=== PATIENT | female | born 1975 | race Caucasian/White ===

== ENCOUNTER 2016-10-08 18:12 | Emergency (ER) | payer OTHER ==
[~2016-10-08] VITALS: Ht 170.2 cm; Wt 86.0 kg
[~2016-10-08 18:12] MED LIST: ALPR.5 PO; ASPI81TA11 PO; COMMODE 3-IN-11 MIS; COUM5TAB PO; CYCL1TAB29 PO; ENOX100P SQ; FERR325T20 PO; FLUO-1 PO; LEVO100T5 PO; LIPI80TA PO; MAGN400T3 PO; NEUR300C PO; OXYC-392 PO; QUAD CANE/SMALL1 MI1; SENN1TAB PO; TACR1 PO; TACR5 PO; WHEEMIS3
[2016-10-08 18:33] VITALS: BP 120/60; PULSE 72; RESP 16; TEMP 97.7; O2SAT 93
--- NOTE | 2016-10-08 18:38 | PD ---
HPI Chief Complaint: abnormal results Time Seen by Provider: 18:38 Travel History International Travel<30 days: No Contact w/Intl Traveler<30days: No History of Present Illness HPI 41 YO F with PMH of lupus induced vasculitis, stroke x 3 presents to the ED via EMS for evaluation of subtherapeutic INR and LLE extremity bruising and pain. Per the patient's POA the patient had a stroke, was rehabbed at [facility] September 23 and is currently in [facility] [place], transitioning to Coumadin. The patients INR has been subtherapeutic for 2 weeks. Patient is currently prescribed 7mg Coumadin daily. The patient is scheduled to be discharged from the rehab on Monday and the POA is concerned that her INR will continue to be subtherapeutic. Being followed by Dr. Mckeon. PCP and neurologist in [facility]. Patient has follow up with both Oct 11. Past Medical History Anemia: Yes Arthritis: No Asthma: No Autoimmune Disease: Yes (Lupus) Anxiety: Yes Depression: No Cancer: No Cardiovascular Problems: No High Cholesterol: Yes Chemotherapy: No Chest Pain: No Congestive Heart Failure: No COPD: No Cerebrovascular Accident: Yes (CVA 06/2016 - 07/2016 - 08/2016) Diabetes: No Diminished Hearing: No Endocrine: Yes GERD: No Genitourinary: No Hiatal Hernia: No Immune Disorder: No Kidney Stones: Yes Musculoskeletal: Yes (right side flacid) Neurologic: Yes (Expressive Aphasia / prev CVA) Psychiatric: No Reproductive: No Respiratory: No Migraines: No Radiation Therapy: No Renal Failure: Yes (acute) Seizures: No Sickle Cell Disease: No Sleep Apnea: No Thyroid Disease: Yes Ulcer: No Tubal Ligation: Yes Past Surgical History Abdominal Surgery: No Appendectomy: Yes Cardiac Surgery: Yes (cardiac catherization) Ear Surgery: No Endocrine Surgery: No Eye Surgery: No Genitourinary Surgery: No Gynecologic Surgery: No Oral Surgery: Yes ([place] teeth removed) Thoracic Surgery: No Other Surgery: Yes (THYROID REMOVED) Social History Alcohol Use: No Tobacco Use: No Substance Use: No Allergies-Medications (Allergen,Severity, Reaction): Coded Allergies: Sulfa (Verified Adverse Reaction, Mild, NAUSEA, 10/08/16) Reported Meds & Prescriptions Reported Meds & Active Scripts Active Coumadin (Warfarin) 5 Mg Tab 5 Mg PO DAILY@16 Senna Plus 8.6-50 mg (Sennosides-Docusate Sodium) 1 Tab Tab 1 Tab PO BID Flexeril (Cyclobenzaprine HCl) 10 Mg Tab 5 Mg PO Q8H PRN Oxycodone (Oxycodone HCl) 5 Mg Tab 10 Mg PO Q4H PRN Ferosul (Ferrous Sulfate) 325 Mg Tablet 325 Mg PO BID@12,17 Neurontin (Gabapentin) 300 Mg Cap 900 Mg PO Q8HR 30 Days Prograf (Tacrolimus) 5 Mg Cap 5 Mg PO BID Prograf (Tacrolimus) 1 Mg Cap 1 Mg PO BID Levothyroxine (Levothyroxine Sodium) 100 Mcg Tab 100 Mcg PO DAILY Lovenox Inj (Enoxaparin Sodium) 100 Mg/Ml Syr 100 Mg SQ BID [place] with coumadin Lipitor (Atorvastatin Calcium) 80 Mg Tab 80 Mg PO HS Aspirin EC (Aspirin) 81 Mg Tabdr 81 Mg PO DAILY Prozac (Fluoxetine HCl) 10 Mg Cap 10 Mg PO DAILY Xanax (Alprazolam) 0.5 Mg Tab 0.5 Mg PO TID PRN Wheelchair (Device) 1 Mis Mis 1 Ea .ROUTE DIRECTED Commode 3-in-1 (Device) 1 Mis Mis 1 Ea .ROUTE DIRECTED Quad Cane/Small Base (Misc. Devices) 1 Mis Mis 1 Ea .ROUTE DIRECTED Reported Magnesium Oxide 400 Mg Tab 400 Mg PO DAILY @ 1800 Warfarin 2 Mg Tab 2 Mg PO DAILY@1600 Review of Systems Except as stated in HPI: all other systems reviewed are Neg Physical Exam Narrative GENERAL: Well-nourished, well-developed white female in NAD. SKIN: Focused skin assessment warm/dry. Mild, scattered bruising of the right leg. HEAD: Normocephalic. EYES: No scleral icterus. No injection or drainage. NECK: Supple, trachea midline. No JVD or lymphadenopathy. CARDIOVASCULAR: Regular rate and rhythm without murmurs, gallops, or rubs. RESPIRATORY: Breath sounds equal bilaterally. No accessory muscle use. GASTROINTESTINAL: Abdomen soft, non-tender, nondistended. MUSCULOSKELETAL: No cyanosis, or edema. + Hohmann sign RIGHT. There is a bruise just superior to the popliteal area with ropy induration RIGHT side. NEUROLOGICAL: Awake and alert. Cranial nerves II through XII intact. Motor and sensory grossly within normal limits. Deficits of strength on the RIGHT side. Right arm in a sling. Normal speech. BACK: Nontender without obvious deformity. No CVA tenderness. Data Data Last Documented VS Vital Signs Date Time Temp Pulse Resp B/P Pulse Ox O2 Delivery O2 Flow Rate FiO2 10/08/16 18:40 72 16 99 Room Air 10/08/16 18:33 97.7 120/60 Orders Coag Profile (10/08/16 19:05) Us Leg Venous Doppler (10/08/16 19:05) Labs Laboratory Tests Test 10/08/16 19:44 Prothrombin Time 19.1 SEC Prothromb Time International 1.7 RATIO Ratio Activated Partial 29.0 SEC Thromboplast Time MDM Medical Decision Making Medical Screen Exam Complete: Yes Emergency Medical Condition: Yes Differential Diagnosis subtherapeutic INR versus DVT versus Narrative Course 41 YO F with PMH of lupus induced vasculitis, stroke x 3 presents to the ED for evaluation of subtherapeutic INR and LLE extremity bruising and pain. Per the patient's POA the patient had a stroke, was rehabbed at [place] d/c'd September 23 and is currently in [facility], transitioning to oral Coumadin. The patients INR has been subtherapeutic for 2 weeks. Patient is currently prescribed 7mg Coumadin daily. The patient is scheduled to be discharged from the rehab on Monday and the POA is concerned that her INR will continue to be subtherapeutic. Being followed by Dr. Mckeon. Patient has follow up with PCP and Neurologist Oct 11. Vitals reviewed. Physical exam reveals a white female in NAD. Right arm in a sling. + Hohmann sign RIGHT. There is a bruise just superior to the popliteal area with ropy induration RIGHT side. RIGHT sided weakness, chronic per patient. Per review of the record the patient has a history of RA, lupus, liver transplant in 2013. First stroke was in June 2016 with residual aphasia and right-sided weakness. Second stroke in July 2016, patient was placed on Eliquis. Stroke in August 2016, patient was placed on Lovenox and ASA. 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 A lumbar puncture at [place] was suggestive of vasculitis. US negative for DVT. INR 1.7. I discussed the results of the workup with the patient and her family. She is stable and discharged to the SNF. Diagnosis Primary Impression: Subtherapeutic anticoagulation Referrals: Primary Care Physician Patient Instructions: General Instructions, Safe Use of Anticoagulants (ED) Additional Instructions: Rest, hydrate. Continue medications as prescribed. Follow up with the PCP. Return to the ED for any urgent or emergent medical condition. Disposition: DISCHARGE TO SNF Condition: Stable Vicky Canela Oct 08, 2016 18:38 Patient Instructions: General Instructions, Safe Use of Anticoagulants (ED) Additional Instructions: Rest, hydrate. Continue medications as prescribed. Follow up with the PCP. Return to the ED for any urgent or emergent medical condition. Disposition: DISCHARGE HOME Condition: Stable Vicky Canela Oct 08, 2016 18:38
[2016-10-08] MEDS ORDERED: WARF4TAB51 PO (19:35)
--- NOTE | 2016-10-08 19:42 | RADRPT ---
EXAM DATE/TIME: 10/08/2016 19:12 [facility] COMPARISON: No previous studies available for comparison. INDICATIONS : Right leg swelling. MEDICAL HISTORY : Hypertension. Renal failure, acute. Hypercholesterolemia. Thrombocytopenia. Blood dyscrasias. Lupu s. Anxiety. Expressive aphasia. CVA. Hemiplegia right side. SURGICAL HISTORY : Thyroidectomy. Liver transplant. Cardiac catherization. ENCOUNTER: Initial ACUITY: 1 day PAIN SCORE: 2/10 LOCATION: Right leg. TECHNIQUE: Venous ultrasound of the leg was performed from the inguinal ligament to the proximal calf. Real-jayden e, color Doppler and spectral tracing, compression and augmentation techniques were used. FINDINGS: There is normal compressibility of the deep venous system from the inguinal region to the proximal ca lf. No echogenic clot is seen in the lumen of the common femoral, femoral, popliteal, and posterior tibial veins. There is a normal response of the venous system to proximal and distal augmentation an d respiration. CONCLUSION: The study is negative for deep venous thrombosis right lower extremity. Janak Cabezas MD on October 08, 2016 at 19:40 Board Certified Radiologist. This report was verified electronically.
[2016-10-08] MEDS ORDERED: MAGN400T2 PO (19:46)
[2016-10-08 20:15] LABS: INTERNATIONAL NORMALIZED RATIO 1.7 RATIO; PROTHROMBIN TIME - PATIENT 19.1 SEC (9.8-11.6)
== END 2016-10-08 21:37 ==
LOC: NEPE 18:12
DX: R79.1 Abnormal coagulation profile (principal); M32.9 Systemic lupus erythematosus, unspecified; E78.00 Pure hypercholesterolemia, unspecified; Z86.73 Personal history of transient ischemic attack (TIA), and cerebral infarction without residual deficits; Z79.01 Long term (current) use of anticoagulants
CPT/HCPCS: 85610; 85730; 93971

== ENCOUNTER 2016-10-09 22:06 | Inpatient (IN) | payer OTHER ==
[~2016-10-09] VITALS: Ht 172.7 cm; Wt 107.2 kg
[~2016-10-09 22:06] MED LIST changes: +MAGN400T2 PO; -MAGN400T3 PO; +WARF4TAB51 PO
[2016-10-09 22:13] VITALS: BP 132/83; PULSE 57; RESP 16; TEMP 98.3; O2SAT 99
[2016-10-09] MEDS ORDERED: SODIUM CHLOR 0.9% 1000 ML INJ 1,000 ML IV ONE (22:21)
--- NOTE | 2016-10-09 22:27 | PD ---
HPI Chief Complaint: Abdominal Pain Time Seen by Provider: 22:22 Travel History International Travel<30 days: No Contact w/Intl Traveler<30days: No Traveled to known affect area: No History of Present Illness HPI 41 YO F with PMH of liver transplant, CVA x 3 , right sided residual weakness, lupus induced vasculitis presents to the ED via EMS from [facility] for evaluation of altered mental status, nausea and vomiting. Patient was last seen normal at 8 PM. On presentation patient is unable to provide any meaningful history. She is able to state her first name and answer questions and follows commands intermittently. PFSH Past Medical History Hx Anticoagulant Therapy: Yes (WARFARIN) Anemia: Yes Arthritis: No Asthma: No Autoimmune Disease: Yes (Lupus) Anxiety: Yes Depression: No Cancer: No Cardiovascular Problems: No High Cholesterol: Yes Chemotherapy: No Chest Pain: No Congestive Heart Failure: No COPD: No Cerebrovascular Accident: Yes (CVA 06/2016 - 07/2016 - 08/2016) Diabetes: No Diminished Hearing: No Endocrine: Yes GERD: No Genitourinary: No Hiatal Hernia: No Hypertension: Yes Immune Disorder: No Kidney Stones: Yes Musculoskeletal: Yes (right side flacid) Neurologic: Yes (Expressive Aphasia / prev CVA) Psychiatric: No Reproductive: No Respiratory: No Migraines: No Radiation Therapy: No Renal Failure: Yes (acute) Seizures: No Sickle Cell Disease: No Sleep Apnea: No Thyroid Disease: Yes Ulcer: No ?: Not Tubal Ligation: Yes Past Surgical History Abdominal Surgery: No Appendectomy: Yes Cardiac Surgery: Yes (cardiac catherization) Ear Surgery: No Endocrine Surgery: No Eye Surgery: No Genitourinary Surgery: No Gynecologic Surgery: No Oral Surgery: Yes ([place] teeth removed) Thoracic Surgery: No Other Surgery: Yes (Thyroidectomy and Liver Transplant) Social History Alcohol Use: No (PT DENIES) Tobacco Use: No (PT DENIES ) Substance Use: No (PT DENIES) Allergies-Medications (Allergen,Severity, Reaction): Coded Allergies: Sulfa (Verified Adverse Reaction, Mild, NAUSEA, 10/08/16) Reported Meds & Prescriptions Reported Meds & Active Scripts Active Coumadin (Warfarin) 5 Mg Tab 5 Mg PO DAILY@16 Senna Plus 8.6-50 mg (Sennosides-Docusate Sodium) 1 Tab Tab 1 Tab PO BID Flexeril (Cyclobenzaprine HCl) 10 Mg Tab 5 Mg PO Q8H PRN Oxycodone (Oxycodone HCl) 5 Mg Tab 10 Mg PO Q4H PRN Ferosul (Ferrous Sulfate) 325 Mg Tablet 325 Mg PO BID@,17 Neurontin (Gabapentin) 300 Mg Cap 900 Mg PO Q8HR 30 Days Prograf (Tacrolimus) 5 Mg Cap 5 Mg PO BID Prograf (Tacrolimus) 1 Mg Cap 1 Mg PO BID Levothyroxine (Levothyroxine Sodium) 100 Mcg Tab 100 Mcg PO DAILY Lovenox Inj (Enoxaparin Sodium) 100 Mg/Ml Syr 100 Mg SQ BID [place] with coumadin Lipitor (Atorvastatin Calcium) 80 Mg Tab 80 Mg PO HS Aspirin EC (Aspirin) 81 Mg Tabdr 81 Mg PO DAILY Prozac (Fluoxetine HCl) 10 Mg Cap 10 Mg PO DAILY Xanax (Alprazolam) 0.5 Mg Tab 0.5 Mg PO TID PRN Wheelchair (Device) 1 Mis Mis 1 Ea .ROUTE DIRECTED Commode 3-in-1 (Device) 1 Mis Mis 1 Ea .ROUTE DIRECTED Quad Cane/Small Base (Misc. Devices) 1 Mis Mis 1 Ea .ROUTE DIRECTED Reported Magnesium Oxide 400 Mg Tab 400 Mg PO DAILY @ 1800 Warfarin 2 Mg Tab 2 Mg PO DAILY@1600 Review of Systems Except as stated in HPI: all other systems reviewed are Neg Physical Exam Narrative GENERAL: Well-nourished, well-developed white female in NAD. SKIN: Focused skin assessment warm/dry. HEAD: Normocephalic. EYES: No scleral icterus. No injection or drainage. Pupils 4-5 mm and reactive bilaterally. EOMI. NECK: Supple, trachea midline. No JVD or lymphadenopathy. CARDIOVASCULAR: Regular rate and rhythm without murmurs, gallops, or rubs. RESPIRATORY: Breath sounds clear and equal bilaterally. No accessory muscle use. GASTROINTESTINAL: Abdomen soft, non-tender, nondistended. MUSCULOSKELETAL: No cyanosis, or edema. NEURO: aphasia, right sided weakness, intermittently follows commands, mild left sided facial droop. BACK: Nontender without obvious deformity. No CVA tenderness. Data Data Last Documented VS Vital Signs Date Time Temp Pulse Resp B/P Pulse Ox O2 Delivery O2 Flow Rate FiO2 10/09/16 22:13 98.3 57 16 132/83 99 Orders Diet Npo (10/10/16 Breakfast) Activity Bed Rest (10/09/16 ) Electrocardiogram (10/09/16 ) I-Stat Creatinine (10/09/16 22:21) I-Stat Profile (10/09/16 22:21) Prothrombin Time / Inr (Pt) (10/09/16 22:21) Act Partial Throm Time (Ptt) (10/09/16 22:21) Complete Blood Count With Diff (10/09/16 22:21) Fibrinogen (10/09/16 22:21) Creatine Kinase (Cpk) (10/09/16 22:21) Troponin I (10/09/16 22:21) Ua Includes Microscopic (10/09/16 22:21) Drug Screen, Random Urine (10/09/16 22:21) Type And Screen (10/09/16 22:21) Ct Brain W/O Iv Contrast(Rout) (10/09/16 ) Cta Brain W Iv Contrast W 3d (10/09/16 22:21) Cta Neck W Iv Contrast W 3d (10/09/16 22:21) Beta Hcg (Quant/Titer) (10/09/16 22:21) Consult Neurology (10/09/16 ) Blood Glucose (10/09/16 22:21) Ecg Monitoring (10/09/16 22:21) Neuro Checks Q2HX12,Q4H (10/09/16 22:21) Nursing Bedside Swallow Assess .ONCE (10/09/16 22:21) Iv Access Insert/Monitor (10/09/16 22:21) NPO (10/09/16 22:21) Oximetry (10/09/16 22:21) Oxygen Administration (10/09/16 22:21) Sodium Chlor 0.9% 1000 Ml Inj (Ns 1000 M (10/09/16 22:21) Resp Oxygen Eliel C Titrat 1-4 L (10/09/16 22:21) Cath For Specimen (10/09/16 22:21) (Hub Use Only)Inp Phy Cons/Ref (10/09/16 ) Ondansetron Inj (Zofran Inj) (10/09/16 23:15) Admit Order (Ed Use Only) (10/09/16 23:03) Prothrombin Complex Conc Inj (Kcentra In (7/30/17 23:15) Labs Laboratory Tests Test 10/09/16 10/09/16 22:43 23:05 White Blood Count 7.4 TH/MM3 Red Blood Count 3.73 MIL/MM3 Hemoglobin 10.7 GM/DL Bedside Hemoglobin 11.6 G/DL Hematocrit 31.5 % Bedside Hematocrit 34.0 % Mean Corpuscular Volume 84.5 FL Mean Corpuscular Hemoglobin 28.7 PG Mean Corpuscular Hemoglobin 34.0 % Concent Red Cell Distribution Width 18.7 % Platelet Count 184 TH/MM3 Mean Platelet Volume 8.5 FL Neutrophils (%) (Auto) 75.1 % Lymphocytes (%) (Auto) 15.1 % Monocytes (%) (Auto) 8.8 % Eosinophils (%) (Auto) 0.3 % Basophils (%) (Auto) 0.7 % Neutrophils # (Auto) 5.6 TH/MM3 Lymphocytes # (Auto) 1.1 TH/MM3 Monocytes # (Auto) 0.6 TH/MM3 Eosinophils # (Auto) 0.0 TH/MM3 Basophils # (Auto) 0.0 TH/MM3 CBC Comment DIFF FINAL Differential Comment Prothrombin Time 15.8 SEC Prothromb Time International 1.4 RATIO Ratio Activated Partial 31.7 SEC Thromboplast Time Fibrinogen 484 mg/dL Bedside Sodium 138 MMOL/L Bedside Potassium 4.7 MMOL/L Bedside Chloride 102 MMOL/L Bedside Blood Urea Nitrogen 24 MG/DL Bedside Creatinine 1.2 MG/DL Bedside Glucose 107 MG/DL Total Creatine Kinase 50 U/L Troponin I LESS THAN 0.02 NG/ML Human Chorionic Gonadotropin, LESS THAN 1 Quant MIU/ML Blood Type A POSITIVE Antibody Screen NEGATIVE Blood Bank Comment Urine Color YELLOW Urine Turbidity CLEAR Urine pH 6.0 Urine Specific [place] 1.012 Urine Protein NEG mg/dL Urine Glucose (UA) NEG mg/dL Urine Ketones NEG mg/dL Urine Occult Blood NEG Urine Nitrite NEG Urine Bilirubin NEG Urine Urobilinogen LESS THAN 2.0 MG/DL Urine Leukocyte Esterase NEG Urine RBC 1 /hpf Urine WBC LESS THAN 1 /hpf Urine Squamous Epithelial 1 /hpf Cells Urine Bacteria RARE /hpf Urine Mucus FEW /lpf Urine Opiates Screen NEG Urine Barbiturates Screen NEG Urine Amphetamines Screen NEG Urine Benzodiazepines Screen NEG Urine Cocaine Screen NEG Urine Cannabinoids Screen NEG MDM Medical Decision Making Medical Screen Exam Complete: Yes Emergency Medical Condition: Yes Differential Diagnosis CVA versus delirium versus UTI versus other Narrative Course 41 YO F with PMH of liver transplant, CVA x 3 , right sided residual weakness, lupus induced vasculitis presents to the ED via EMS from [facility] for evaluation of altered mental status, nausea and vomiting. Patient was last seen normal at 8 PM. On presentation patient is unable to provide any meaningful history. The right side is weak, there is aphasia, she is able to state her first name, answer questions and follows commands intermittently. I saw the patient yesterday and this is a definitive change in status, stroke alert was called and the patient was taken to CT. Dr. Johnson took over care of the patient at this point. Please see her note for disposition. Vicky Canela Oct 09, 2016 22:27
--- NOTE | 2016-10-09 22:51 | RADRPT ---
EXAM DATE/TIME: 10/09/2016 22:32 [facility] COMPARISON: No previous studies available for comparison. INDICATIONS : Stroke alert; altered mental status and right sided weakness. Patient has had three previous strokes . RADIATION DOSE: 34.89 CTDIvol (mGy) This report was called by to Dr Johnson at 2246 hours. MEDICAL HISTORY : Cerebrovascular disease. Renal failure, chronic. Lupus. SURGICAL HISTORY : Appendectomy. ENCOUNTER: Initial ACUITY: 1 day PAIN SCALE: Non-responsive LOCATION: cranial TECHNIQUE: Multiple contiguous axial images were obtained of the head. Using automated exposure control and adj ustment of the mA and/or kV according to patient size, radiation dose was kept as low as reasonably a chievable to obtain optimal diagnostic quality images. DICOM format image data is available electro nically for review and comparison. FINDINGS: CEREBRUM: There is a subdural hematoma on the right side involving the mid convexity parietal region measuring up to 6 mm. There is a also focal component in the posterior parietal region. Potter-white matter dif ferentiation is preserved, but there is evidence of mild midline shift towards the left approximately 3 mm. In the left hemisphere, there are multifocal areas of hypodensity, the largest of which is in the parietal-occipital region involving cortex and white matter with some ex vacuo enlargement of th e occipital horn. A similar appearing area seen in the high convexity parietal region; the left-side d abnormalities are characteristic of old infarctions. POSTERIOR FOSSA: The cerebellum and brainstem are intact. The 4th ventricle is midline. The cerebellopontine angle i s unremarkable. EXTRACRANIAL: The visualized portion of the orbits is intact. SKULL: The calvaria is intact. No evidence of skull fracture. CONCLUSION: 1. Right-sided subdural hematoma measuring up to 6 mm. There is associated 3 mm midline shift toward s the left. 2. Old left-sided infarctions involving the parietal-occipital and high convexity parietal region. Janak Cabezas MD on October 09, 2016 at 22:44 Board Certified Radiologist. This report was verified electronically.
[2016-10-09 23:00] LABS: I-STAT POTASSIUM 4.7 MMOL/L (3.5-4.9); I-STAT SODIUM 138 MMOL/L (138-146)
[2016-10-09 23:01] LABS: AUTOMATED NEUTROPHIL # 5.6 TH/MM3 (1.8-7.7); BASOPHIL % 0.7 % (0.0-2.0); EOSINOPHIL % 0.3 % (0.0-4.0); HEMATOCRIT 31.5 % (35.0-46.0); HEMO FLAGS DIFF FINAL; LYMPH % 15.1 % (9.0-44.0); LYMPHOCYTE # 1.1 TH/MM3 (1.0-4.8); MEAN CELL VOLUME 84.5 FL (80.0-100.0); MEAN CORPUSCULAR HEMOGLOBIN 28.7 PG (27.0-34.0); MONO % 8.8 % (0.0-8.0); NEUT % 75.1 % (16.0-70.0); PLATELET COUNT 184 TH/MM3 (150-450); RED BLOOD COUNT 3.73 MIL/MM3 (4.00-5.30); RED CELL DISTRIBUTION WIDTH 18.7 % (11.6-17.2); WHITE BLOOD COUNT 7.4 TH/MM3 (4.0-11.0)
[2016-10-09 23:06] LABS: APTT (PATIENT) 31.7 SEC (24.3-30.1); INTERNATIONAL NORMALIZED RATIO 1.4 RATIO; PROTHROMBIN TIME - PATIENT 15.8 SEC (9.8-11.6)
--- NOTE | 2016-10-09 23:10 | PD ---
Physical Exam Narrative General: The patient is a well-developed well-nourished female in no acute distress. Head and Neck exam: Head is normocephalic atraumatic. Eyes: EOMI, pupils are equal round and reactive to light. Nose: Midline septum with pink mucous membranes Mouth: Dentition unremarkable. Moist mucus membranes. Posterior oropharynx is not erythematous. No tonsillar hypertrophy. Uvula midline. Airway patent. Neck: No palpable lymphadenopathy. No nuchal rigidity. No thyromegaly. Cardiovascular: Regular rate and rhythm without murmurs, gallops, or rubs. Lungs: Clear to auscultation bilaterally. No wheezes, rhonchi, or rales. Abdomen: Soft, without tenderness to palpation in all 4 quadrants of the abdomen. No guarding, rebound, or rigidity. Normal bowel sounds are audible. No tenderness on palpation of McBurney's point. Negative [place] sign. Extremities: No clubbing or cyanosis. The patient has bilateral trace pedal edema. 2+ pulses in all 4 extremities. No calf tenderness on palpation. Back: No costovertebral angle tenderness to palpation. Neurologic Exam: The patient has a mild left-sided facial droop noted. The patient is confused on examination, having difficulty staying focused for a formal neurologic examination. The patient has difficulty answering questions and is confused. The patient has right upper and right lower extremity weakness with right upper extremity mild contracture noted from a recent prior stroke. The patient has strength that is 5 over 5 in the left upper and left lower extremity. Intact sensation on the left side. Skin Exam: No rash noted. Intact skin that is warm and dry. Data Data Last Documented VS Vital Signs Date Time Temp Pulse Resp B/P Pulse Ox O2 Delivery O2 Flow Rate FiO2 10/09/16 22:13 98.3 57 16 132/83 99 Orders Diet Npo (10/10/16 Breakfast) Activity Bed Rest (10/09/16 ) Electrocardiogram (10/09/16 ) I-Stat Creatinine (10/09/16 22:21) I-Stat Profile (10/09/16 22:21) Prothrombin Time / Inr (Pt) (10/09/16 22:21) Act Partial Throm Time (Ptt) (10/09/16 22:21) Complete Blood Count With Diff (10/09/16 22:21) Fibrinogen (10/09/16 22:21) Creatine Kinase (Cpk) (10/09/16 22:21) Troponin I (10/09/16 22:21) Ua Includes Microscopic (10/09/16 22:21) Drug Screen, Random Urine (10/09/16 22:21) Type And Screen (10/09/16 22:21) Ct Brain W/O Iv Contrast(Rout) (10/09/16 ) Cta Brain W Iv Contrast W 3d (10/09/16 22:21) Cta Neck W Iv Contrast W 3d (10/09/16 22:21) Beta Hcg (Quant/Titer) (10/09/16 22:21) Consult Neurology (10/09/16 ) Blood Glucose (10/09/16 22:21) Ecg Monitoring (10/09/16 22:21) Neuro Checks Q2HX12,Q4H (10/09/16 22:21) Nursing Bedside Swallow Assess .ONCE (10/09/16 22:21) Iv Access Insert/Monitor (10/09/16 22:21) NPO (10/09/16 22:21) Oximetry (10/09/16 22:21) Oxygen Administration (10/09/16 22:21) Sodium Chlor 0.9% 1000 Ml Inj (Ns 1000 M (10/09/16 22:21) Resp Oxygen Eliel C Titrat 1-4 L (10/09/16 22:21) Cath For Specimen (10/09/16 22:21) (Hub Use Only)Inp Phy Cons/Ref (10/09/16 ) Ondansetron Inj (Zofran Inj) (10/09/16 23:15) Admit Order (Ed Use Only) (10/09/16 23:03) Prothrombin Complex Conc Inj (Kcentra In (10/09/16 23:15) Labs Laboratory Tests Test 10/09/16 10/09/16 22:43 23:05 White Blood Count 7.4 TH/MM3 Red Blood Count 3.73 MIL/MM3 Hemoglobin 10.7 GM/DL Bedside Hemoglobin 11.6 G/DL Hematocrit 31.5 % Bedside Hematocrit 34.0 % Mean Corpuscular Volume 84.5 FL Mean Corpuscular Hemoglobin 28.7 PG Mean Corpuscular Hemoglobin 34.0 % Concent Red Cell Distribution Width 18.7 % Platelet Count 184 TH/MM3 Mean Platelet Volume 8.5 FL Neutrophils (%) (Auto) 75.1 % Lymphocytes (%) (Auto) 15.1 % Monocytes (%) (Auto) 8.8 % Eosinophils (%) (Auto) 0.3 % Basophils (%) (Auto) 0.7 % Neutrophils # (Auto) 5.6 TH/MM3 Lymphocytes # (Auto) 1.1 TH/MM3 Monocytes # (Auto) 0.6 TH/MM3 Eosinophils # (Auto) 0.0 TH/MM3 Basophils # (Auto) 0.0 TH/MM3 CBC Comment DIFF FINAL Differential Comment Prothrombin Time 15.8 SEC Prothromb Time International 1.4 RATIO Ratio Activated Partial 31.7 SEC Thromboplast Time Bedside Sodium 138 MMOL/L Bedside Potassium 4.7 MMOL/L Bedside Chloride 102 MMOL/L Bedside Blood Urea Nitrogen 24 MG/DL Bedside Creatinine 1.2 MG/DL Bedside Glucose 107 MG/DL Total Creatine Kinase 50 U/L Troponin I LESS THAN 0.02 NG/ML Human Chorionic Gonadotropin, LESS THAN 1 Quant MIU/ML Blood Type A POSITIVE Antibody Screen NEGATIVE Blood Bank Comment Urine Color YELLOW Urine Turbidity CLEAR Urine pH 6.0 Urine Specific [place] 1.012 Urine Protein NEG mg/dL Urine Glucose (UA) NEG mg/dL Urine Ketones NEG mg/dL Urine Occult Blood NEG Urine Nitrite NEG Urine Bilirubin NEG Urine Urobilinogen LESS THAN 2.0 MG/DL Urine Leukocyte Esterase NEG Urine RBC 1 /hpf Urine WBC LESS THAN 1 /hpf Urine Squamous Epithelial 1 /hpf Cells Urine Bacteria RARE /hpf Urine Mucus FEW /lpf Urine Opiates Screen NEG Urine Barbiturates Screen NEG Urine Amphetamines Screen NEG Urine Benzodiazepines Screen NEG Urine Cocaine Screen NEG Urine Cannabinoids Screen NEG [facility] Medical Record Reviewed: Yes Supervised Visit with CLARISSA: Yes Interpretation(s) Last Impressions Head CT 10/09/16 0000 Signed Impressions: Service Date/Time: Sunday, October 09, 2016 22:32 - CONCLUSION: 1. Right-sided subdural hematoma measuring up to 6 mm. There is associated 3 mm midline shift towards the left. 2. Old left-sided infarctions involving the parietal- occipital and high convexity parietal region. Janak Cabezas MD Narrative Course During the course of the patients emergency department visit, the patients history, examination, and differential diagnosis were reviewed with the patient. The patient had IV access obtained and blood work sent for analysis. The patient's was on a immunopathologist with oximetry and blood pressure monitoring. The patient's place with head of the bed flat. The patient had a blood sugar done on arrival it was 100. The patient was emergently taken to CT scan, after a stroke alert was called. The patient had an EKG done on arrival. The patient's EKG shows a sinus bradycardia heart rate of 58, nonspecific T- wave abnormalities, no acute ST segment elevation, QRS duration is 98 ms, QTc is 412 ms. The patient was initially provided normal saline at 70 mL per hour. The patient 's head of the bed was placed flat. The patients laboratory studies were reviewed and remarkable for a white count of 7.4, hemoglobin 10.7, platelets 184 with 75.1 neutrophils, 8.8 monocytes, i- STAT reveals a creatinine of 1.2, glucose 107, CPK 50, troponin I is less than 0.02, quantitative beta hCG is less than 1, INR 1.4, PT 15.8, PTT 31.7, fibrinogen 484. Urinalysis is a catheterized specimen that shows rare bacteria. Urine drug screen is negative. The patient reportedly had nausea and vomiting 2 prior to arrival was given Zofran 4 mg IV. Radiology studies were reviewed and remarkable for a CT scan of the brain that was called to me by the radiologist as showing a subdural hematoma on the right side that is 6 mm with what appears to be a midline shift of 3 mm to the left. The patient also has signs of prior ischemic stroke on the left side. A call was placed out to the neurosurgeon on-call. I spoke to . He did agree that the patient should have reversal of her anticoagulant. The patient had K Centra ordered. The patient's case was discussed with Dr. Jack , the neurologist to update him regarding the patient's subdural hematoma on CT. I then spoke to , the photovoltaic power systems engineer accountant controller who did agree to admit the patient for further evaluation and treatment at this time. The patients results were discussed with the patient, including the plan of care. I explained that further testing and/ or monitoring is indicated based on the patients history, examination, and/ or laboratory findings. Therefore, I recommended admission for additional evaluation. The patient expressed understanding and was agreeable with this plan. The patient was admitted to the hospital in guarded condition and sent to a bed under the care of the photovoltaic power systems engineer service. Physician Communication Physician Communication The patient's case is discussed with Dr. Way at approximately 10:50 PM. He did recommend reversal of the patient's anticoagulation. I spoke to Dr. Jack to update him regarding the patient's subdural hematoma on CT. I then spoke to Dr. Vigil regarding this patient's admission. He did agree to admit the patient to the [facility]. Diagnosis Primary Impression: Subdural hematoma, acute Admitting Information Admitting Physician Requests: Admit Sabrina Johnson MD Oct 09, 2016 23:10
[2016-10-09] MEDS ORDERED: PROTHROMBIN COMPLEX CONC INJ 2,000 UNITS in SYRINGE/BAG 1 EA IV ONE (23:15)
[2016-10-09] MEDS ORDERED: ONDANSETRON HCL 4 MG/2 ML VIAL IV ONE (23:15)
[2016-10-09 23:23] LABS: BETA HCG QUANT LESS THAN 1 MIU/ML (0-5)
[2016-10-09 23:24] LABS: CREATINE KINASE 50 U/L (26-192)
--- NOTE | 2016-10-09 23:26 | HHI.HP ---
HPI Service Critical Care Medicine Primary Care Physician Beata Morrison M.D. Admission Diagnosis Subdural hematoma on coumadin Diagnosis: Travel History International Travel<30 Days: No Contact w/Intl Traveler <30 Da: No Traveled to Known Affected Are: No Review of Systems Constitutional: DENIES: Diaphoretic episodes, Fatigue, Fever, Weight gain, Weight loss, Chills, Dizziness, Change in appetite, Night Sweats Endocrine: DENIES: Abnorml menstrual pattern, Heat/cold intolerance, Polydipsia , Polyuria, Polyphagia Eyes: COMPLAINS OF: Blurred vision, DENIES: Diplopia, Eye inflammation, Eye pain, Vision loss, Photosensitivity, Double Vision Ears, nose, mouth, throat: DENIES: Tinnitus, Hearing loss, Vertigo, Nasal discharge, Oral lesions, Throat pain, Hoarseness, Ear Pain, Running Nose, Epistaxis, Sinus Pain, Toothache, Odynophagia Respiratory: DENIES: Apneas, Cough, Snoring, Wheezing, Hemoptysis, Sputum production, Shortness of breath Cardiovascular: DENIES: Chest pain, Palpitations, Syncope, Dyspnea on Exertion , PND, Lower Extremity Edema, Orthopnea, Claudication Gastrointestinal: DENIES: Abdominal pain, Black stools, Bloody stools, Constipation, Diarrhea, Nausea, Vomiting, Difficulty Swallowing, Anorexia Genitourinary: DENIES: Abnormal vaginal bleeding, Dysmenorrhea, Dyspareunia, Sexual dysfunction, Urinary frequency, Urinary incontinence, Urgency, Hematuria , Dysuria, Nocturia, Vaginal discharge Musculoskeletal: DENIES: Joint pain, Muscle aches, Stiffness, Joint Swelling, Back pain, Neck pain Integumentary: DENIES: Abnormal pigmentation, Pruritus, Rash, Nail changes, Breast masses, Breast skin changes, Nipple discharge Hematologic/lymphatic: DENIES: Bruising, Lymphadenopathy Immunologic/allergic: DENIES: Eczema, Urticaria Neurologic: COMPLAINS OF: Headache, DENIES: Abnormal gait, Localized weakness , Paresthesias, Seizures, Speech Problems, Tremor, Poor Balance Psychiatric: COMPLAINS OF: Confusion, DENIES: Anxiety, Mood changes, Depression, Hallucinations, Agitation, Suicidal Ideation, Homicidal Ideation, Delusions Past Family Social History Allergies: Coded Allergies: Sulfa (Verified Adverse Reaction, Mild, NAUSEA, 10/08/16) Past Medical History Hx Anticoagulant Therapy with Coumadin Anemia Systemic lupus erythematosus Anxiety High Cholesterol Cerebrovascular Accident 3 in 06/2016 - 07/2016 - 08/2016 Hypertension Kidney Stones Chronic Renal Failure Hypothyroidism Past Surgical History Appendectomy Cardiac catheterization [place] teeth removed Thyroidectomy Liver Transplant Reported Medications Reported Meds & Active Scripts Active Coumadin (Warfarin) 5 Mg Tab 5 Mg PO DAILY@16 Senna Plus 8.6-50 mg (Sennosides-Docusate Sodium) 1 Tab Tab 1 Tab PO BID Flexeril (Cyclobenzaprine HCl) 10 Mg Tab 5 Mg PO Q8H PRN Oxycodone (Oxycodone HCl) 5 Mg Tab 10 Mg PO Q4H PRN Ferosul (Ferrous Sulfate) 325 Mg Tablet 325 Mg PO BID@, Neurontin (Gabapentin) 300 Mg Cap 900 Mg PO Q8HR 30 Days Prograf (Tacrolimus) 5 Mg Cap 5 Mg PO BID Prograf (Tacrolimus) 1 Mg Cap 1 Mg PO BID Levothyroxine (Levothyroxine Sodium) 100 Mcg Tab 100 Mcg PO DAILY Lovenox Inj (Enoxaparin Sodium) 100 Mg/Ml Syr 100 Mg SQ BID Bridge with coumadin Lipitor (Atorvastatin Calcium) 80 Mg Tab 80 Mg PO HS Aspirin EC (Aspirin) 81 Mg Tabdr 81 Mg PO DAILY Prozac (Fluoxetine HCl) 10 Mg Cap 10 Mg PO DAILY Xanax (Alprazolam) 0.5 Mg Tab 0.5 Mg PO TID PRN Wheelchair (Device) 1 Mis Mis 1 Ea .ROUTE DIRECTED Commode 3-in-1 (Device) 1 Mis Mis 1 Ea .ROUTE DIRECTED Quad Cane/Small Base (Misc. Devices) 1 Mis Mis 1 Ea .ROUTE DIRECTED Reported Magnesium Oxide 400 Mg Tab 400 Mg PO DAILY @ 1800 Warfarin 2 Mg Tab 2 Mg PO DAILY@1600 Active Ordered Medications Current Medications Medications (Trade) Dose Ordered Sig/Nubia Route PRN Reason Start Time Stop Time Status Last Admin Dose Admin Sodium Chloride (NS 1000 ml Inj) 1,000 ml @ 70 mls/hr [id number] ONCE IV 10/09/16 22:21 10/10/16 12:38 10/09/16 22:48 Alprazolam (Xanax) 0.5 mg TID PRN PO ANXIETY 10/09/16 23:30 Atorvastatin Calcium (Lipitor) 80 mg HS PO 10/10/16 21:00 Cyclobenzaprine HCl (Flexeril) 5 mg Q8H PRN PO MUSCLE SPASM 10/09/16 23:30 Ferrous Sulfate (Ferrous Sulfate) 325 mg BID@12,17 PO 10/10/16 12:00 Fluoxetine HCl (PROzac) 10 mg DAILY PO 10/10/16 09:00 Gabapentin (Neurontin) 900 mg Q8HR PO 10/10/16 06:00 Levothyroxine Sodium (Synthroid) 100 mcg DAILY@0600 PO 10/10/16 06:00 Oxycodone HCl (Roxicodone) 10 mg Q4H PRN PO PAIN SCALE 1 TO 10 10/09/16 23:30 Senna/Docusate Sodium (Brittney-Colace) 1 tab BID PO 10/10/16 09:00 Tacrolimus (Prograf) 1 mg BID PO 10/10/16 09:00 Tacrolimus (Prograf) 5 mg BID PO 10/10/16 09:00 Family History No family history of early coronary artery disease, or cancer Social History No history of tobacco, alcohol or illicit drug abuse Physical Exam Vital Signs Vital Signs Date Time Temp Pulse Resp B/P Pulse Ox O2 Delivery O2 Flow Rate FiO2 10/09/16 22:13 98.3 57 16 132/83 99 Physical Exam GENERAL: Well-nourished, well-developed patient. SKIN: Warm and dry. HEAD: Normocephalic. EYES: No scleral icterus. No injection or drainage. NECK: Supple, trachea midline. No JVD or lymphadenopathy. CARDIOVASCULAR: Regular rate and rhythm without murmurs, gallops, or rubs. RESPIRATORY: Breath sounds equal bilaterally. No accessory muscle use. GASTROINTESTINAL: Abdomen soft, non-tender, nondistended. MUSCULOSKELETAL: No cyanosis, or edema. BACK: Nontender without obvious deformity. No CVA tenderness. EXTREMITIES:No clubbing or cyanosis. The patient has bilateral trace pedal edema. 2+ pulses in all 4 extremities. No calf tenderness on palpation. NEUROLOGIC EXAM: The patient has a mild left-sided facial droop noted. The patient is confused on examination, having difficulty staying focused for a formal neurologic examination. The patient has difficulty answering questions and is confused. The patient has right upper and right lower extremity weakness with right upper extremity mild contracture noted from a recent prior stroke. The patient has strength that is 5 over 5 in the left upper and left lower extremity. Intact sensation on the left side. Laboratory Laboratory Tests Test 10/09/16 22:43 White Blood Count 7.4 Red Blood Count 3.73 Hemoglobin 10.7 Bedside Hemoglobin 11.6 Hematocrit 31.5 Bedside Hematocrit 34.0 Mean Corpuscular Volume 84.5 Mean Corpuscular Hemoglobin 28.7 Mean Corpuscular Hemoglobin 34.0 Concent Red Cell Distribution Width 18.7 Platelet Count 184 Mean Platelet Volume 8.5 Neutrophils (%) (Auto) 75.1 Lymphocytes (%) (Auto) 15.1 Monocytes (%) (Auto) 8.8 Eosinophils (%) (Auto) 0.3 Basophils (%) (Auto) 0.7 Neutrophils # (Auto) 5.6 Lymphocytes # (Auto) 1.1 Monocytes # (Auto) 0.6 Eosinophils # (Auto) 0.0 Basophils # (Auto) 0.0 CBC Comment DIFF FINAL Differential Comment Prothrombin Time 15.8 Prothromb Time International 1.4 Ratio Activated Partial 31.7 Thromboplast Time Bedside Sodium 138 Bedside Potassium 4.7 Bedside Chloride 102 Bedside Blood Urea Nitrogen 24 Bedside Creatinine 1.2 Bedside Glucose 107 Total Creatine Kinase 50 Troponin I LESS THAN 0.02 Human Chorionic Gonadotropin, LESS THAN 1 Quant Result Diagram: 10/09/16 2243 Assessment and Plan Assessment and Plan Subdural hematoma - Spontaneous without trauma - History of anticoagulation with Coumadin - Reverse with Kcentra - No intervention is indicated at this time - Repeat CT in the morning - Further per neurosurgery Anemia - Jacob sulfate Systemic lupus erythematosus - Status post liver transplant - Continue Prograf Dyslipidemia - Atorvastatin Anxiety/depression - Prozac - Xanax Chronic renal failure - Monitor I's and O's - Monitor creatinine and electrolytes - Electrodes replacement per ICU protocol Hypothyroidism - Levothyroxine Critical Care: The total critical care time was 35 minutes. Time to perform other separately billable procedures was not included in the critical care time. Rohan Vigil MD Oct 09, 2016 23:26
[2016-10-09 23:33] VITALS: BP 175/85; PULSE 57; RESP 18; TEMP 100; O2SAT 99
[2016-10-09 23:39] LABS: AMPHETAMINE, URINE NEG (NEG); BACTERIA, URINE RARE /hpf; BARBITURATES, URINE NEG (NEG); BLOOD, URINE NEG (NEG); COCAINE, URINE NEG (NEG); GLUCOSE,URINE NEG (NEG); KETONE, URINE NEG (NEG); MUCUS URINE FEW /lpf (OCC); NITRITE,URINE NEG (NEG); SQUAMOUS EPITHELIAL CELL URINE 1 /hpf (0-5); URINE COLOR YELLOW (YELLW/STRAW)
[2016-10-10] VITALS (13 sets, daily range): BP systolic 137–171; BP diastolic 67–84; PULSE 52–106; RESP 10–30; TEMP 97.9–98.7; O2SAT 97–99
[2016-10-10] MEDS ORDERED: ENOX100I SQ (01:26)
[2016-10-10] MEDS ORDERED: RESP: ALBUTEROL 2.5 MG/IPRATROPIUM 0.5 MG NEB (PRN) INH (03:00)
[2016-10-10] MEDS ORDERED: BISACODYL 10 MG SUPP RECTAL PRN (03:00)
[2016-10-10] MEDS ORDERED: LORazepam 2 MG/ML VIAL IV PRN (03:00)
[2016-10-10] MEDS ORDERED: SODIUM CHLORIDE 0.9% FLUSH 10 ML FLUSH PRN (03:00)
[2016-10-10] MEDS ORDERED: SENNOSIDES 8.6 MG TAB PO PRN (03:00)
[2016-10-10] MEDS ORDERED: MAGNESIUM HYDROXIDE SUSP 30 ML CUP PO PRN (03:00)
[2016-10-10] MEDS ORDERED: LACTULOSE SYRUP 20 GM/30 ML CUP PO PRN (03:00)
[2016-10-10] MEDS ORDERED: MISCELLANEOUS NURSING INFORMATION XX SCH (03:00)
[2016-10-10] MEDS ORDERED: CHLORHEXIDINE GLUCONATE 2 % 1 PACK (2 CLOTHS) TOP PRN (03:00)
[2016-10-10] MEDS ORDERED: ACETAMINOPHEN 325 MG TAB PO PRN (03:00)
[2016-10-10] MEDS: ONDANSETRON HCL 4 MG/2 ML VIAL IV PRN ×3 (03:30→23:21)
[2016-10-10] MEDS: HYDROmorphone HCL PF 1 MG/ML VIAL IV PRN ×4 (03:31→20:08)
[2016-10-10] MEDS: hydrALAZINE HCL 20 MG/ML VIAL IV PUSH PRN ×2 (03:46→23:59)
[2016-10-10] MEDS: CHLORHEXIDINE GLUCONATE 2 % 1 PACK (2 CLOTHS) TOP SCH (04:43)
[2016-10-10] MEDS: METOCLOPRAMIDE HCL 10 MG/2 ML VIAL IV PRN (05:48)
--- NOTE | 2016-10-10 05:50 | MB ---
cc: CHRIS ARDON M.D. DATE OF CONSULTATION 10/09/[address] Johnson HISTORY This is a 41-year-old woman who was brought over from [facility] where she is currently undergoing rehab for history of left hemisphere CVA x 3 since June of this year. The patient has residual right hemiparesis and aphasia. She he was noted to have some altered mental status changes while at [facility] and brought over to [place] for evaluation. Currently, according to family members, she is back to her baseline status as far as her mental status and aphasia are concerned. She is not complaining of any headache or nausea. Workup in the emergency room included CT scan of the brain which shows a small amount of acute subdural blood in the right posterior frontal parietal region measuring approximately 6 mm in greatest thickness. It is only several cm in length. There does appear to be some fullness of the right hemisphere and midline is shifted over approximately 3-mm; however, there is significant loss of volume on the left from previous infarct to the left hemisphere. The patient is currently on Coumadin anticoagulation and on admission her INR was 1.7. PAST MEDICAL HISTORY Significant for - 1. History of CVA x 3 as stated above. 2. The patient is also a liver transplant recipient. 3. History of systemic lupus erythematosus. 4. Hypertension. 5. Chronic renal failure. 6. Hypothyroidism. CURRENT MEDICATIONS Documented in her H&P. ALLERGIES SULFA MEDICATIONS. REVIEW OF SYSTEMS pertinent as stated in HPI, otherwise negative. PHYSICAL EXAMINATION GENERAL: A well-developed, well-nourished female awake, alert, no acute distress. HEENT EXAMINATION: Head is atraumatic and normocephalic. Pupils are equal, reactive to light. Extraocular movements are intact. NECK: Supple. Full range of motion. No posterior tenderness. NEUROLOGICAL EXAMINATION: The patient has an expressive aphasia but is able to answer yes and no questions. She is oriented x 3. Cranial nerve examination shows mild right facial droop. Motor function 5/5 in left upper and lower extremity, right upper extremity 0/5, right lower extremity is 4/5 proximally, 0/5 dorsiflexion and 3/5 plantar flexion. Sensory examination intact to light touch and pain sensation with decreased localization on the right. ASSESSMENT A 41-year-old female with a small amount of right acute subdural bleeding. No history of head injury. The patient is on anticoagulation. PLAN The patient will be admitted for observation. Her Coumadin will be held and CT scan of the brain will be repeated tomorrow morning. MD JOSÉ MIGUEL Gandara/SSB /12:01 AM /5:41 AM
[2016-10-10] MEDS: LEVOTHYROXINE SODIUM 100 MCG TAB PO SCH (05:51)
[2016-10-10] MEDS: GABAPENTIN 300 MG CAP PO SCH ×3 (05:51→23:01)
[2016-10-10] MEDS: FAMOTIDINE 20 MG/2 ML VIAL IV PUSH SCH ×2 (08:24→20:07)
[2016-10-10] MEDS: DOCUSATE SODIUM 50 MG/SENNA 8.6 MG TAB PO SCH ×4 (08:24→21:00)
[2016-10-10] MEDS ORDERED: ASPIRIN EC 81 MG TABEC PO SCH (09:00)
[2016-10-10] MEDS: TACROLIMUS 5 MG CAP PO SCH ×2 (09:51→20:07)
[2016-10-10] MEDS: TACROLIMUS 1 MG CAP PO SCH ×2 (09:51→20:07)
[2016-10-10] MEDS: SODIUM CHLORIDE 0.9% FLUSH 10 ML FLUSH SCH ×2 (09:51→20:08)
[2016-10-10] MEDS: FLUoxetine HCL 10 MG CAP PO SCH (09:51)
--- NOTE | 2016-10-10 11:56 | MB ---
cc: CHRIS MICHAUD M.D. DATE OF CONSULTATION 10/10/2016 REASON FOR CONSULTATION Subdural hematoma. HISTORY OF PRESENT ILLNESS Ms. Chávez is a 40-year-old female who has a history of strokes in the past which she states has cause right-sided weakness and difficulty with her speech who was admitted last night as a stroke alert when she developed a left-sided facial droop. She had the residual right-sided weakness which is known from a previous stroke. She was found on a CT scan to have a subdural hematoma involving the right side measuring 6-mm. She has been seen by Neurosurgery. This is being watched at the present time. There was a 3-mm midline shift. PAST MEDICAL HISTORY 1. She has a history of previous strokes in the past causing right sided weakness. 2. She is a liver transplant recipient. 3. Renal failure. 4. Hypertension. 5. Lupus. 6. Hypothyroidism. She was on Coumadin. Her INR was 1.7 on arrival; his has since been reversed. CURRENT MEDICATIONS IN THE HOSPITAL 1. Coumadin on hold. 2. Lipitor. 3. Iron sulfate. 4. Prozac. 5. Brittney-Colace. 6. Prograf. 7. Pepcid. 8. Neurontin. 9. Synthroid. 10. Tylenol. 11. Dilaudid. 12. Ativan. 13. Zofran. 14. DuoNeb. 15. Milk of Magnesia. 16. Apresoline. 17. Lactulose p.r.n. NEUROLOGIC EXAMINATION VITAL SIGNS: Blood pressure is 150/74, pulse is 52, respirations are 20. HIGHER CORTICAL FUNCTION: She is alert. She has difficulty expressing; it appears to an expressive type of aphasia. CRANIAL NERVES: Intact. I do not see a facial droop today. MOTOR EXAM: She has got normal strength on the left. She is weak in the right arm at 3/5, right leg 4/5. Reflexes are symmetric. IMAGING STUDIES CT of the brain is reviewed from yesterday showing a small subdural hematoma. Repeat CT is currently pending. LABORATORY DATA White count 7400, hemoglobin 10.7, hematocrit 31.5%, platelet count 184,000. PT 15.8, INR 1.4, APTT 31.7. Sodium is 138, potassium 4.7, chloride 102. The BUN is 24, creatinine 1.2, glucose 107, CPK is 50. Tox screen negative. IMPRESSION Small subdural hematoma. RECOMMENDATIONS Agree with holding Coumadin. We will follow up on a repeat CT scan at the present time. MD ANNELIESE Long/FAITH /10:54 AM /11:38 AM
--- NOTE | 2016-10-10 12:02 | HHI.NSPN ---
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 The patient has residual right hemiparesis and aphasia. She he was noted to have some altered mental status changes while at [facility] and brought over to [place] for evaluation. Currently, according to family members, she is back to her baseline status as far as her mental status and aphasia are concerned. She is not complaining of any headache or nausea. Workup in the emergency room included CT scan of the brain which shows a small amount of acute subdural blood in the right posterior frontal parietal region measuring approximately 6 mm in greatest thickness. It is only several cm in length. There does appear to be some fullness of the right hemisphere and midline is shifted over approximately 3-mm; however, there is significant loss of volume on the left from previous infarct to the left hemisphere. The patient is currently on Coumadin anticoagulation and on admission her INR was 1.7. 10/10: stable neuro exam, most recent INR was 1.4 yesterday (Yvette Cantrell) Labs, Micro, & Vital Signs Results Date Time Temp Pulse Resp B/P Pulse Ox O2 Delivery O2 Flow Rate FiO2 10/10/16 08:53 20 10/10/16 07:00 99 Room Air 10/10/16 06:00 58 10/10/16 04:00 98.2 52 20 150/74 98 10/10/16 04:00 52 10/10/16 02:00 66 10/10/16 00:50 72 16 171/79 98 Room Air 10/09/16 23:33 100.0 57 18 175/85 99 10/09/16 22:13 98.3 57 16 132/83 99 10/10/16 07:00 Intake Total 296 ml Output Total 900 ml Balance -604 ml Constitutional Vital Signs Date Time Temp Pulse Resp B/P Pulse Ox O2 Delivery O2 Flow Rate FiO2 10/10/16 08:53 20 10/10/16 07:00 99 Room Air 10/10/16 06:00 58 10/10/16 04:00 98.2 52 20 150/74 98 10/10/16 04:00 52 10/10/16 02:00 66 10/10/16 00:50 72 16 171/79 98 Room Air 10/09/16 23:33 100.0 57 18 175/85 99 10/09/16 22:13 98.3 57 16 132/83 99 10/10/16 07:00 Intake Total 296 ml Output Total 900 ml Balance -604 ml (Yvette Cantrell) Review of Systems/Exam Exam Ms. Alaniz is awake. Speech is aphasic. followed only simple commands. Cranial nerve examination: pupils to be equal, round, and reactive to light. Right facial weakness. Neck is soft and supple. Motor: moves left side and right lower extremity off the bed. 0/5 right upper. Difficult to assess detail exam due to aphasia. Cerebellar examination: cannot assess due to clinical condition (Yvette Cantrell) Exam Ms. Alaniz is awake. Aphasic. followed only simple commands. Cranial nerve examination: pupils to be equal, round, and reactive to light. Right facial weakness. Neck is soft and supple. Motor: moves left side and right lower extremity off the bed. 0/5 right upper. Difficult to assess detail exam due to aphasia. Sensory examination is intact to light touch and sharp/dull discrimination in both the upper and lower extremities, symmetrically. DTR's symmetrical Cerebellar examination: cannot assess due to clinical condition (Jimmy Rhoades MD) Medications Current Medications Current Medications Medications (Trade) Dose Ordered Sig/Nubia Route PRN Reason Start Time Stop Time Status Last Admin Dose Admin Sodium Chloride (NS 1000 ml Inj) 1,000 ml @ 70 mls/hr [id number] ONCE IV 10/09/16 22:21 10/10/16 12:38 10/09/16 22:48 Alprazolam (Xanax) 0.5 mg TID PRN PO ANXIETY 10/09/16 23:30 Atorvastatin Calcium (Lipitor) 80 mg HS PO 10/10/16 21:00 Cyclobenzaprine HCl (Flexeril) 5 mg Q8H PRN PO MUSCLE SPASM 10/09/16 23:30 Ferrous Sulfate (Ferrous Sulfate) 325 mg BID@12,17 PO 10/10/16 12:00 Fluoxetine HCl (PROzac) 10 mg DAILY PO 10/10/16 09:00 10/10/16 09:51 Gabapentin (Neurontin) 900 mg Q8HR PO 10/10/16 06:00 Levothyroxine Sodium (Synthroid) 100 mcg DAILY@0600 PO 10/10/16 06:00 Oxycodone HCl (Roxicodone) 10 mg Q4H PRN PO PAIN SCALE 1 TO 10 10/09/16 23:30 10/10/16 11:07 Senna/Docusate Sodium (Brittney-Colace) 1 tab BID PO 10/10/16 09:00 Tacrolimus (Prograf) 1 mg BID PO 10/10/16 09:00 10/10/16 09:51 Tacrolimus 5 mg 5 mg BID PO 10/10/16 09:00 10/10/16 09:51 Sodium Chloride (NS 1000 ml Inj) 1,000 ml @ 84 mls/hr [id number] IV 10/10/16 02:48 Sodium Chloride (NS Flush) 2 ml UNSCH PRN .XX FLUSH AFTER USING IV ACCESS 10/10/16 03:00 Sodium Chloride (NS Flush) 2 ml BID .XX 10/10/16 09:00 10/10/16 09:51 Acetaminophen (Tylenol) 650 mg Q6H PRN PO PAIN 1-10 AND/OR FEVER >101F 10/10/16 03:00 Hydromorphone HCl (Dilaudid Pf Inj) 1 mg Q4H PRN IV PAIN SCALE 6 TO 10 10/10/16 03:00 10/10/16 08:23 Famotidine (Pepcid Inj) 20 mg Q12HR IV PUSH 10/10/16 09:00 10/10/16 08:24 Lorazepam (Ativan Inj) 1 mg Q1H PRN IV Agitation/Sedation 10/10/16 03:00 Ondansetron HCl (Zofran Inj) 4 mg Q6H PRN IV NAUSEA OR VOMITING 10/10/16 03:00 10/10/16 03:30 Metoclopramide HCl (Reglan Inj) 10 mg Q6H PRN IV NAUSEA OR VOMITING 10/10/16 03:00 10/10/16 05:48 Miscellaneous Information 1 Q361D XX 10/10/16 03:00 Chlorhexidine Gluconate (Chlorhexidine 2% Cloth) 3 pack Taper DAILY@04 TOP 10/10/16 04:00 10/06/17 03:59 10/10/16 04:43 Chlorhexidine Gluconate (Chlorhexidine 2% Cloth) 3 pack UNSCH PRN TOP HYGIENIC CARE 10/10/16 03:00 Senna/Docusate Sodium (Brittney-Colace) 1 tab BID PO 10/10/16 09:00 10/10/16 08:24 Magnesium Hydroxide (Milk Of Magnesia Liq) 30 ml Q12H PRN PO MILD - MODERATE CONSTIPATION 10/10/16 03:00 Sennosides (Senokot) 17.2 mg Q12H PRN PO MODERATE - SEVERE CONSTIPATION 10/10/16 03:00 Bisacodyl (Dulcolax Supp) 10 mg DAILY PRN RECTAL SEVERE CONSITIPATION 10/10/16 03:00 Lactulose (Lactulose Liq) 30 ml DAILY PRN PO SEVERE CONSITIPATION 10/10/16 03:00 Hydralazine HCl (Apresoline Inj) 20 mg Q4H PRN IV PUSH SBP>150, DBP>90 10/10/16 03:00 10/10/16 03:46 (Yvette Cantrell) Current Medications Current Medications Sodium Chloride (NS 1000 ml Inj) 1,000 ml @ 70 mls/hr [id number] ONCE IV Last administered on 10/09/16 22:48; Start 10/09/16 at 22:21; Stop 10/10/16 at 12:38 ; Status DC Ondansetron HCl 4 mg 4 mg ONCE ONCE IV Last administered on 10/09/16 23:31; Start 10/09/16 at 23:15; Stop 10/09/16 at 23:16; Status DC Prothrombin Complex Concent (Human)/Syringe / Bag (Kcentra Inj/ Syringe/Bag) 0 ml @ 500 mls/hr ONCE ONCE IV Last administered on 10/09/16 23:30; Start 10/09 at 23:15; Stop 10/09/16 at 23:16; Status DC Alprazolam (Xanax) 0.5 mg TID PRN PO ANXIETY; Start 10/09/16 at 23:30 Aspirin (Ecotrin Ec) 81 mg DAILY PO ; Start 10/10/16 at 09:00; Stop 10/10/16 at 09:00; Status DC Atorvastatin Calcium (Lipitor) 80 mg HS PO ; Start 10/10/16 at 21:00 Cyclobenzaprine HCl (Flexeril) 5 mg Q8H PRN PO MUSCLE SPASM Last administered on 10/10/16 12:37; Start 10/09/16 at 23:30 Ferrous Sulfate (Ferrous Sulfate) 325 mg BID@12,17 PO Last administered on 10/10 12:37; Start 10/10/16 at 12:00 Fluoxetine HCl (PROzac) 10 mg DAILY PO Last administered on 10/10/16 09:51; Start 10/10/16 at 09:00 Gabapentin (Neurontin) 900 mg Q8HR PO Last administered on 10/10/16 13:57; Start 10/10/16 at 06:00 Levothyroxine Sodium (Synthroid) 100 mcg DAILY@0600 PO ; Start 10/10/16 at 06:00 Oxycodone HCl (Roxicodone) 10 mg Q4H PRN PO PAIN SCALE 1 TO 10 Last administered on 10/10/16 11:07; Start 10/09/16 at 23:30 Senna/Docusate Sodium (Brittney-Colace) 1 tab BID PO ; Start 10/10/16 at 09:00 Tacrolimus (Prograf) 1 mg BID PO Last administered on 10/10/16 09:51; Start at 09:00 Tacrolimus 5 mg 5 mg BID PO Last administered on 10/10/16 09:51; Start at 09:00 Sodium Chloride (NS 1000 ml Inj) 1,000 ml @ 84 mls/hr [id number] IV Last administered on 10/10/16 13:12; Start 10/10/16 at 02:48 Sodium Chloride (NS Flush) 2 ml UNSCH PRN .XX FLUSH AFTER USING IV ACCESS; Start 10/10/16 at 03:00 Sodium Chloride (NS Flush) 2 ml BID .XX Last administered on 10/10/16 09:51; Start 10/10/16 at 09:00 Acetaminophen (Tylenol) 650 mg Q6H PRN PO PAIN 1-10 AND/OR FEVER >101F; Start 10/10/16 at 03:00 Hydromorphone HCl (Dilaudid Pf Inj) 1 mg Q4H PRN IV PAIN SCALE 6 TO 10 Last administered on 10/10/16 13:56; Start 10/10/16 at 03:00 Famotidine (Pepcid Inj) 20 mg Q12HR IV PUSH Last administered on 10/10/16 08: 24; Start 10/10/16 at 09:00 Lorazepam (Ativan Inj) 1 mg Q1H PRN IV Agitation/Sedation; Start 10/10/16 at 03 :00 Ondansetron HCl (Zofran Inj) 4 mg Q6H PRN IV NAUSEA OR VOMITING Last administered on 10/10/16 03:30; Start 10/10/16 at 03:00 Metoclopramide HCl (Reglan Inj) 10 mg Q6H PRN IV NAUSEA OR VOMITING Last administered on 10/10/16 05:48; Start 10/10/16 at 03:00 Albuterol/ Ipratropium (Duoneb Neb) 1 ampule Q2HR NEB PRN INH WHEEZING; Start 10/10/16 at 03:00 Miscellaneous Information 1 Q361D XX ; Start 10/10/16 at 03:00 Chlorhexidine Gluconate (Chlorhexidine 2% Cloth) 3 pack Taper DAILY@04 TOP Last administered on 10/10/16 04:43; Start 10/10/16 at 04:00; Stop 10/06/17 at 03:59 Chlorhexidine Gluconate (Chlorhexidine 2% Cloth) 3 pack UNSCH PRN TOP HYGIENIC CARE; Start 10/10/16 at 03:00 Senna/Docusate Sodium (Brittney-Colace) 1 tab BID PO Last administered on 08:24; Start 10/10/16 at 09:00 Magnesium Hydroxide (Milk Of Magnesia Liq) 30 ml Q12H PRN PO MILD - MODERATE CONSTIPATION; Start 10/10/16 at 03:00 Sennosides (Senokot) 17.2 mg Q12H PRN PO MODERATE - SEVERE CONSTIPATION; Start 10/10/16 at 03:00 Bisacodyl (Dulcolax Supp) 10 mg DAILY PRN RECTAL SEVERE CONSITIPATION; Start at 03:00 Lactulose (Lactulose Liq) 30 ml DAILY PRN PO SEVERE CONSITIPATION; Start at 03:00 Hydralazine HCl (Apresoline Inj) 20 mg Q4H PRN IV PUSH SBP>150, DBP>90 Last administered on 10/10/16 03:46; Start 10/10/16 at 03:00 Iohexol (Omnipaque 350 Inj) 70 ml STK-MED ONCE IV Last administered on 14:53; Start 10/10/16 at 14:53; Stop 10/10/16 at 14:54; Status DC (Jimmy Rhoades MD) Medical Decision Making MDM Remarks 41 y/o female with history of multiple CVA, residual aphasia and right upper extremity plegia, right lower paresis presented for AMS, anticoagulated on Coumadin, INR of 1.7 on arrival, tx with K-Centra CT Head on arrival shows right SDH with 3 mm midline shift, (Yvette Cantrell ) MDM Remarks Last Impressions Head CT 10/09/16 0000 Signed Impressions: Service Date/Time: Sunday, October 09, 2016 22:32 - CONCLUSION: 1. Right-sided subdural hematoma measuring up to 6 mm. There is associated 3 mm midline shift towards the left. 2. Old left-sided infarctions involving the parietal- occipital and high convexity parietal region. Janak Cabezas MD (Jimmy Rhoades MD) Plan Plan Remarks per Dr. Rhoades f/u CT Head tomorrow am, repeat coags now and follow up cont neuro checks in ISC, medical management following, nonchemical dvt prophylaxis in view of ICH dc Coumadin (Yvette Cantrell) Attending Statement Continue neuro checks. New INR 1.4. Recommend additional FFP Pulmonary. aggressive pulmonary toilette, nasotracheal suction, and breathing treatments with nebulizers. Daily PT and OT Nutrition. Oral diet Renal. monitor closely urine output, BUN and creatinine Endocrine. Monitor serial Acu checks and SSI as needed in detail ID monitor for signs of infection Protonix for stress ulcer prophylaxis Mango hose and SCD's for DVT prophylaxis The exam, history, and the medical decision-making described in the above note were completed with the assistance of the mid-level provider. I reviewed and agree with the findings presented. I attest that I had a [id number] encounter with the patient on the same day, and personally performed and documented my assessment and findings in the medical record. (Jimmy Rhoades MD) Yvette Cantrell Oct 10, 2016 12:01 Jimmy Rhoades MD Oct 10, 2016 15:04 Yvette Cantrell Oct 10, 2016 12:01 Jimmy Rhoades MD Oct 10, 2016 15:04
[2016-10-10] MEDS: CYCLOBENZAPRINE HCL 10 MG TAB PO PRN (12:37)
[2016-10-10] MEDS: FERROUS SULFATE 325 MG (65 MG ELEMENTAL IRON) TAB PO SCH ×2 (12:37→16:37)
[2016-10-10 12:56] LABS: APTT (PATIENT) 29.6 SEC (24.3-30.1); INTERNATIONAL NORMALIZED RATIO 1.2 RATIO; PROTHROMBIN TIME - PATIENT 13.6 SEC (9.8-11.6)
[2016-10-10] MEDS: SODIUM CHLOR 0.9% 1000 ML INJ 1,000 ML IV SCH (13:12)
--- NOTE | 2016-10-10 13:34 | HHI.CCPN ---
Subjective Remarks/Hospital Course Spontaneous right subdural hemorrhage in patient on coumadin for antiphospholipid ab syndrome. Received K-centra on arrival to ED. First INR after 1.4, at 1100 today 1.2. Will hold further reversal in light of her propensity to clot. Objective Vital Signs Date Time Temp Pulse Resp B/P Pulse Ox O2 Delivery O2 Flow Rate FiO2 10/10/16 12:07 22 10/10/16 12:00 98.7 106 137/72 97 10/10/16 07:00 Room Air Result Diagram: 10/09/16 2243 Objective Remarks GENERAL: S/P old CVA. SKIN: Warm and dry. HEAD: Normocephalic. EYES: No scleral icterus. No injection or drainage. NECK: Supple, trachea midline. No JVD or lymphadenopathy. CARDIOVASCULAR: Regular rate and rhythm without murmurs, gallops, or rubs. No JVD. RESPIRATORY: Breath sounds equal bilaterally. No accessory muscle use. GASTROINTESTINAL: Abdomen soft, non-tender, nondistended. BS active. MUSCULOSKELETAL: No cyanosis, or edema. Well perfused. BACK: Nontender without obvious deformity. No CVA tenderness. EXTREMITIES: 2+ pulses in all 4 extremities. NEUROLOGIC EXAM: Confused on examination, having difficulty staying focused answering questions. Right upper and right lower extremity weakness with right upper extremity mild contracture noted from a recent prior stroke. 5 over 5 in the left upper and left lower extremity. Intact sensation on the left side. Protects airway well. A/P Assessment and Plan Subdural hematoma - Spontaneous without trauma - History of anticoagulation with Coumadin - Reverse with K-centra - No intervention is indicated at this time - Repeat CT in the morning - Further per neurosurgery Anemia - Jacob sulfate Systemic lupus erythematosus - Status post liver transplant - Continue Prograf Dyslipidemia - Atorvastatin Anxiety/depression - Prozac - Xanax Chronic renal failure - Monitor I's and O's - Monitor creatinine and electrolytes - Electrolyte replacement per ICU protocol Hypothyroidism - Levothyroxine Overall impression: Stable neurological status over past 12 hours. Follow exam closely, review repeat CT, correct INR, follow. Matt Souza MD Oct 10, 2016 13:34
[2016-10-10] MEDS ORDERED: IOHEXOL 350 MG/ML 10 ML VIAL (for RAD DIAG) IV ONE (14:53)
--- NOTE | 2016-10-10 15:34 | EKG ---
Date Performed: 10/09/2016 Time Performed: 22:53:47 PTAGE: 41 years EKG: SINUS BRADYCARDIA NONSPECIFIC T-WAVE ABNORMALITY BORDERLINE ECG PREVIOUS TRACING : 09/25/2013 20.24 Compared to previous tracing, sinus rate is slightly slower . Previously seen ST changes have improved. DOCTOR: Rigoberto Patel Interpretating Date/Time 10/10/2016 15:34:25
--- NOTE | 2016-10-10 16:33 | RADRPT ---
EXAM DATE/TIME: 10/10/2016 14:15 [facility] COMPARISON: CT BRAIN W/O CONTRAST, October 09, 2016, 22:32. INDICATIONS : Trouble with speech. IV CONTRAST: 70 cc Omnipaque 350 (iohexol) IV ; Cumulative dose for multiple exams. RADIATION DOSE: 29.08 CTDIvol (mGy) ; Combined studies MEDICAL HISTORY : Stroke. Hypertension. SURGICAL HISTORY : None. ENCOUNTER: Initial ACUITY: 2 days PAIN SCALE: Non-responsive LOCATION: Bilateral cranial TECHNIQUE: Volumetric scanning was performed using a multi-row detector CT scanner. The data was post processed with a variety of visualization algorithms including full volume maximum intensity projection, multi -planar sliding thin slab reformation, curved planar reformation, and surface rendering techniques. Using automated exposure control and adjustment of the mA and/or kV according to patient size, radiat ion dose was kept as low as reasonably achievable to obtain optimal diagnostic quality images. DICO M format image data is available electronically for review and comparison. FINDINGS: Examination is abnormal. There is occlusion of the left ICA terminus. The left middle and anterior to arteries are well-opacified likely from collateral flow through the anterior commuting artery. There is no evidence for aneurysm or vascular malformation. No evidence for large vessel occlusion involvi ng the middle and anterior she will arteries. Vertebral arteries are symmetrical in size and opacified the basilar artery. 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 Posterior cerebral arteries are patent. No evidence for large vessel occlusion, a neurysm or vascular malformation. Redemonstration of right-sided subdural hematoma measuring up to 5 mm. Associated subtle 2 mm right t o left subfalcine shift. Redemonstration of watershed territory left occipital and high convexity pos terior parietal encephalomalacia on the left. CONCLUSION: 1. No evidence for aneurysm or AV malformation as questioned. 2. Occlusion of the left ICA terminus with reconstitution of the middle and anterior cerebral arterie s through the anterior commuting artery. Watershed territory left parieto-occipital and high convexit y posterior parietal encephalomalacia consistent with chronic etiology. Comparisons with prior examin ations would be beneficial in further evaluation. 3. Redemonstration of 5 mm right-sided subdural hematoma and associated subtle 2 mm [id number] sub falcine shift. Nixon Sherwood MD on October 10, 2016 at 15:58 Board Certified Radiologist. This report was verified electronically.
--- NOTE | 2016-10-10 16:38 | RADRPT ---
EXAM DATE/TIME: 10/10/2016 14:15 [facility] COMPARISON: No previous studies available for comparison. INDICATIONS : Slurred speach. IV CONTRAST: 70 cc Omnipaque 350 (iohexol) IV ; Cumulative dose for multiple exams. RADIATION DOSE: 33.11 CTDIvol (mGy) ; Combined studies MEDICAL HISTORY : Hypertension. Stroke SURGICAL HISTORY : Appendectomy. ENCOUNTER: Initial ACUITY: 1 day PAIN SCALE: 0/10 LOCATION: neck Elevated flow velocities and ICA/CCA ratios have been found to correlate with increased degrees of vessel stenosis, calculated as percentage of diameter relative to a normal segment of distal ICA/CCA. TECHNIQUE: Volumetric scanning was performed using a multirow detector CT scanner. The data was post processed with a variety of visualization algorithms including full-volume maximum intensity projection, multip lanar sliding thin-slab reformation, curved-planar reformation, and surface-rendering techniques. Us ing automated exposure control and adjustment of the mA and/or kV according to patient size, radiatio n dose was kept as low as reasonably achievable to obtain optimal diagnostic quality images. DICOM f ormat image data is available electronically for review and comparison. FINDINGS: AORTIC ARCH: There is a three-vessel origin of the great vessels from the aorta. No evidence of ostial narrowing. RIGHT CAROTID: The common carotid artery is intact. The carotid bulb has a normal configuration without ulceration o r narrowing. The internal carotid artery lumen is smooth without stenosis. The external carotid oracio ry is intact. LEFT CAROTID: The common carotid artery is intact. The carotid bulb has a normal configuration without ulceration or narrowing. The external carotid artery is intact. The internal carotid artery is diffusely small in caliber through the skull base with occlusion of the ICA terminus. No definitive dissection or inf lammatory change. VERTEBRALS: The vertebral arteries have a symmetric diameter. No stenotic lesions are seen. The visualized portions of the lung apices demonstrate a 5 mm left upper lobe lung nodule. CONCLUSION: 1. Abnormal diffusely small caliber left internal carotid artery with apparent occlusion of the carot id terminus. Differential considerations include vasculitis versus flow related caliber change. Clini trang correlation is recommended. Comparison with prior imaging would be beneficial in further evaluati on. 2. 5 mm solid left upper lobe lung nodule. No routine followup is recommended for low-risk patients. If patient is high risk, a followup CT examination in 12 months is recommended per [address]a. Nixon Sherwood MD on October 10, 2016 at 16:31 Board Certified Radiologist. This report was verified electronically.
[2016-10-10] MEDS: ALPRAZolam 0.5 MG TAB PO PRN (17:11)
[2016-10-10] MEDS: ATORVASTATIN 80 MG TAB PO SCH (20:07)
[2016-10-11] VITALS (14 sets, daily range): BP systolic 122–139; BP diastolic 61–80; PULSE 50–82; RESP 15–25; TEMP 98.2–99.3; O2SAT 95–99
[2016-10-11] MEDS: HYDROmorphone HCL PF 1 MG/ML VIAL IV PRN ×3 (00:04→20:10)
[2016-10-11] MEDS: hydrALAZINE HCL 20 MG/ML VIAL IV PUSH PRN ×3 (02:02→16:45)
[2016-10-11] MEDS: SODIUM CHLOR 0.9% 1000 ML INJ 1,000 ML IV SCH ×2 (02:02→14:45)
[2016-10-11] MEDS: CHLORHEXIDINE GLUCONATE 2 % 1 PACK (2 CLOTHS) TOP SCH (04:00)
[2016-10-11] MEDS: METOCLOPRAMIDE HCL 10 MG/2 ML VIAL IV PRN ×2 (04:20→20:10)
[2016-10-11 04:42] LABS: AUTOMATED NEUTROPHIL # 5.2 TH/MM3 (1.8-7.7); BASOPHIL % 0.1 % (0.0-2.0); EOSINOPHIL % 0.2 % (0.0-4.0); HEMATOCRIT 32.2 % (35.0-46.0); HEMO FLAGS DIFF FINAL; LYMPH % 16.8 % (9.0-44.0); LYMPHOCYTE # 1.2 TH/MM3 (1.0-4.8); MEAN CELL VOLUME 85.9 FL (80.0-100.0); MEAN CORPUSCULAR HEMOGLOBIN 27.6 PG (27.0-34.0); MEAN CORPUSCULAR HGB CONC 32.2 % (32.0-36.0); MONO % 7.5 % (0.0-8.0); NEUT % 75.4 % (16.0-70.0); PLATELET COUNT 197 TH/MM3 (150-450); RED BLOOD COUNT 3.75 MIL/MM3 (4.00-5.30); RED CELL DISTRIBUTION WIDTH 18.4 % (11.6-17.2); WHITE BLOOD COUNT 6.9 TH/MM3 (4.0-11.0)
[2016-10-11 04:58] LABS: ALT (GPT) 11 U/L (10-53); ANION GAP 11 MEQ/L (5-15); AST (GOT) 8 U/L (15-37); BICARBONATE 22.9 MEQ/L (21.0-32.0); BLOOD UREA NITROGEN 17 MG/DL (7-18); CHLORIDE 105 MEQ/L (98-107); GLOMERULAR FILTRATION RATE 67 ML/MIN (>89); MAGNESIUM 1.6 MG/DL (1.5-2.5); POTASSIUM 3.5 MEQ/L (3.5-5.1); SODIUM (NA) 139 MEQ/L (136-145)
[2016-10-11 05:01] LABS: ALKALINE PHOSPHATASE 68 U/L (45-117); TOTAL BILIRUBIN ADULT 0.4 MG/DL (0.2-1.0)
[2016-10-11] MEDS: ONDANSETRON HCL 4 MG/2 ML VIAL IV PRN ×3 (05:30→21:53)
[2016-10-11] MEDS: LEVOTHYROXINE SODIUM 100 MCG TAB PO SCH (05:49)
[2016-10-11] MEDS: GABAPENTIN 300 MG CAP PO SCH ×3 (05:49→21:11)
--- NOTE | 2016-10-11 06:16 | RADRPT ---
EXAM DATE/TIME: 10/11/2016 05:42 [facility] COMPARISON: CT BRAIN W/O CONTRAST, October 09, 2016, 22:32. INDICATIONS : Follow up hemorrhage. RADIATION DOSE: 33.78 CTDIvol (mGy) MEDICAL HISTORY : Stroke. Hypertension. SURGICAL HISTORY : None. ENCOUNTER: Subsequent ACUITY: 2 days PAIN SCALE: 0/10 LOCATION: cranial TECHNIQUE: Multiple contiguous axial images were obtained of the head. Using automated exposure control and adj ustment of the mA and/or kV according to patient size, radiation dose was kept as low as reasonably a chievable to obtain optimal diagnostic quality images. DICOM format image data is available electro nically for review and comparison. FINDINGS: The small right subdural hematoma along the mid parietal convexities is stable in appearance. The sec ond smaller focal area of high density hemorrhage along the posterior parietal region is stable as we ll. There is mild midline shift to the left approximately 2-3 mm. There is effacement of the right fr ontal and parietal sulci. A focal area encephalomalacia is again noted in left parietal lobe. The pos terior fossa and brainstem remain unremarkable. The bone windows remain intact. CONCLUSION: 1. Stable appearance of the right-sided subdural hematoma. 2. Mild mass effect and midline shift are present. This is not significantly changed. 3. Old area of encephalomalacia in the left parietal lobe. Marty Rodriguez MD on October 11, 2016 at 6:11 Board Certified Radiologist. This report was verified electronically.
[2016-10-11] MEDS: DOCUSATE SODIUM 50 MG/SENNA 8.6 MG TAB PO SCH ×4 (08:10→21:11)
[2016-10-11] MEDS: TACROLIMUS 1 MG CAP PO SCH ×2 (08:10→21:11)
[2016-10-11] MEDS: TACROLIMUS 5 MG CAP PO SCH ×2 (08:10→21:11)
[2016-10-11] MEDS: FAMOTIDINE 20 MG/2 ML VIAL IV PUSH SCH ×2 (08:11→21:12)
[2016-10-11] MEDS: SODIUM CHLORIDE 0.9% FLUSH 10 ML FLUSH SCH ×2 (08:11→21:11)
[2016-10-11] MEDS: FLUoxetine HCL 10 MG CAP PO SCH (08:11)
--- NOTE | 2016-10-11 08:43 | HHI.CCPN ---
Subjective Remarks/Hospital Course Spontaneous right subdural hemorrhage in patient on coumadin for antiphospholipid antibody(?) and recent stroke. Received K-centra on arrival to ED. First INR after 1.4, at 1100 today 1.2. Will hold further reversal in light of her propensity to clot. 10/11: No change in Head CT, mild shift the same. INR corrected. Underlying coagulation pathology worrisome - previous ischemic left side CVA. She was evaluated extensively at [facility], from which the coag data was drawn. Dr. Miguel at [facility] evaluated her here in August 2016 and his note is available in EMR. I have not seen records from [place]. Objective Vital Signs Date Time Temp Pulse Resp B/P Pulse Ox O2 Delivery O2 Flow Rate FiO2 10/11/16 07:57 98 21 10/11/16 07:00 Room Air 10/11/16 06:00 62 10/11/16 04:00 98.4 15 122/71 Intake and Output 10/10/16 10/10/16 10/11/16 08:00 16:00 00:00 Intake Total 296 ml 679 ml 963 ml Output Total 900 ml 325 ml 1250 ml Balance -604 ml 354 ml -287 ml Result Diagram: 10/11/16 0325 10/11/16 0325 Objective Remarks GENERAL: S/P old left hemispheric CVA. SKIN: Warm and dry. HEAD: Normocephalic. EYES: No scleral icterus. No injection or drainage. NECK: Supple, trachea midline. Airway widely patent. CARDIOVASCULAR: Regular rate and rhythm without murmurs, gallops, or rubs. No JVD. RESPIRATORY: Breath sounds equal bilaterally. No wheezes or crackles. GASTROINTESTINAL: Abdomen soft, non-tender, nondistended. BS active. MUSCULOSKELETAL: No cyanosis, or edema. Well perfused. EXTREMITIES: 2+ pulses in all 4 extremities. NEUROLOGIC EXAM: Confused on examination, having difficulty staying focused answering questions. Right upper and right lower extremity weakness with right upper extremity mild contracture noted from a recent prior stroke. 5 over 5 in the left upper and left lower extremity. Intact sensation on the left side. Protects airway well. A/P Assessment and Plan Subdural hematoma - Spontaneous without trauma - History of anticoagulation with Coumadin - Reverse with K-centra - No intervention is indicated at this time - Repeat CT in the morning - Further per neurosurgery Anemia - Jacob sulfate Systemic lupus erythematosus - Status post liver transplant - Continue Prograf Dyslipidemia - Atorvastatin Anxiety/depression - Prozac - Xanax Chronic renal failure - Monitor I's and O's - Monitor creatinine and electrolytes - Electrolyte replacement per ICU protocol Hypothyroidism - Levothyroxine Overall impression: Stable neurological status over past 36 hours. Major decision remains - when and if to restart anticoagulation and antiplatelet therapy. Hematology consult from last month is available in EMR. Matt Souza MD Oct 11, 2016 08:43
[2016-10-11] MEDS: FERROUS SULFATE 325 MG (65 MG ELEMENTAL IRON) TAB PO SCH ×2 (10:45→18:31)
--- NOTE | 2016-10-11 13:21 | HHI.NSPN ---
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 The patient has residual right hemiparesis and aphasia. She he was noted to have some altered mental status changes while at [facility] and brought over to [place] for evaluation. Currently, according to family members, she is back to her baseline status as far as her mental status and aphasia are concerned. She is not complaining of any headache or nausea. Workup in the emergency room included CT scan of the brain which shows a small amount of acute subdural blood in the right posterior frontal parietal region measuring approximately 6 mm in greatest thickness. It is only several cm in length. There does appear to be some fullness of the right hemisphere and midline is shifted over approximately 3-mm; however, there is significant loss of volume on the left from previous infarct to the left hemisphere. The patient is currently on Coumadin anticoagulation and on admission her INR was 1.7. 10/10: stable neuro exam, most recent INR was 1.4 yesterday 10/11: neuro checks stable overnight. f/u CT Head this morning completed. (Yvette Cantrell) Labs, Micro, & Vital Signs Results Date Time Temp Pulse Resp B/P Pulse Ox O2 Delivery O2 Flow Rate FiO2 10/11/16 12:00 78 10/11/16 12:00 98.5 76 21 131/61 96 10/11/16 11:12 12 10/11/16 10:00 62 10/11/16 08:00 98.2 78 25 137/75 97 10/11/16 08:00 78 10/11/16 07:57 98 21 10/11/16 07:00 97 Room Air 10/11/16 06:00 62 10/11/16 04:00 98.4 55 15 122/71 96 10/11/16 04:00 55 10/11/16 02:00 54 10/11/16 00:00 98.6 50 17 130/76 95 10/11/16 00:00 50 10/10/16 22:00 60 10/10/16 21:46 99 21 10/10/16 20:00 66 10/10/16 20:00 97.9 66 10 156/76 97 10/10/16 19:00 97 Room Air 10/10/16 18:00 53 10/10/16 17:38 16 10/10/16 16:00 98.0 54 16 150/84 98 10/10/16 16:00 60 10/10/16 14:00 60 10/11/16 07:00 Intake Total 2415 ml Output Total 2025 ml Balance 390 ml Constitutional Vital Signs Date Time Temp Pulse Resp B/P Pulse Ox O2 Delivery O2 Flow Rate FiO2 10/11/16 12:00 78 10/11/16 12:00 98.5 76 21 131/61 96 10/11/16 11:12 12 10/11/16 10:00 62 10/11/16 08:00 98.2 78 25 137/75 97 10/11/16 08:00 78 10/11/16 07:57 98 21 10/11/16 07:00 97 Room Air 10/11/16 06:00 62 10/11/16 04:00 98.4 55 15 122/71 96 10/11/16 04:00 55 10/11/16 02:00 54 10/11/16 00:00 98.6 50 17 130/76 95 10/11/16 00:00 50 10/10/16 22:00 60 10/10/16 21:46 99 21 10/10/16 20:00 66 10/10/16 20:00 97.9 66 10 156/76 97 10/10/16 19:00 97 Room Air 10/10/16 18:00 53 10/10/16 17:38 16 10/10/16 16:00 98.0 54 16 150/84 98 10/10/16 16:00 60 10/10/16 14:00 60 10/11/16 07:00 Intake Total 2415 ml Output Total 2025 ml Balance 390 ml (Yvette Cantrell) Review of Systems/Exam Exam Ms. Alaniz is awake. aphasic, attempting to converse. Follows simple commands. Cranial nerve examination: pupils equal, round, and reactive to light. Right facial weakness. Neck is soft and supple. Motor: moves left side and right lower extremity off the bed. 0/5 right upper. Difficult to assess detail exam due to aphasia. Cerebellar examination: cannot assess due to clinical condition (Yvette Cantrell) Exam Ms. Alaniz is awake. aphasic, attempting to converse. Follows simple commands. Cranial nerve examination: pupils equal, round, and reactive to light. Right facial weakness. Neck is soft and supple. Motor: moves left side and right lower extremity off the bed. 0/5 right upper. Difficult to assess detail exam due to aphasia. Cerebellar examination: cannot assess due to clinical condition (Jimmy Rhoades MD) Medications Current Medications Current Medications Medications (Trade) Dose Ordered Sig/Nubia Route PRN Reason Start Time Stop Time Status Last Admin Dose Admin Alprazolam (Xanax) 0.5 mg TID PRN PO ANXIETY 10/09/16 23:30 10/10/16 17:11 Atorvastatin Calcium (Lipitor) 80 mg HS PO 10/10/16 21:00 10/10/16 20:07 Cyclobenzaprine HCl (Flexeril) 5 mg Q8H PRN PO MUSCLE SPASM 10/09/16 23:30 10/10/16 12:37 Ferrous Sulfate (Ferrous Sulfate) 325 mg BID@ PO 10/10/16 12:00 10/11/16 10:45 Fluoxetine HCl (PROzac) 10 mg DAILY PO 10/10/16 09:00 10/11/16 08:11 Gabapentin (Neurontin) 900 mg Q8HR PO 10/10/16 06:00 10/11/16 05:49 Levothyroxine Sodium (Synthroid) 100 mcg DAILY@0600 PO 10/10/16 06:00 10/11/16 05:49 Oxycodone HCl (Roxicodone) 10 mg Q4H PRN PO PAIN SCALE 1 TO 10 10/09/16 23:30 10/11/16 02:13 Senna/Docusate Sodium (Brittney-Colace) 1 tab BID PO 10/10/16 09:00 Tacrolimus (Prograf) 1 mg BID PO 10/10/16 09:00 10/11/16 08:10 Tacrolimus 5 mg 5 mg BID PO 10/10/16 09:00 10/11/16 08:10 Sodium Chloride (NS 1000 ml Inj) 1,000 ml @ 84 mls/hr [id number] IV 10/10/16 02:48 10/11/16 02:02 Sodium Chloride (NS Flush) 2 ml UNSCH PRN .XX FLUSH AFTER USING IV ACCESS 10/10/16 03:00 Sodium Chloride (NS Flush) 2 ml BID .XX 10/10/16 09:00 10/11/16 08:11 Acetaminophen (Tylenol) 650 mg Q6H PRN PO PAIN 1-10 AND/OR FEVER >101F 10/10/16 03:00 Hydromorphone HCl (Dilaudid Pf Inj) 1 mg Q4H PRN IV PAIN SCALE 6 TO 10 10/10/16 03:00 10/11/16 10:42 Famotidine (Pepcid Inj) 20 mg Q12HR IV PUSH 10/10/16 09:00 10/11/16 08:11 Lorazepam (Ativan Inj) 1 mg Q1H PRN IV Agitation/Sedation 10/10/16 03:00 Ondansetron HCl (Zofran Inj) 4 mg Q6H PRN IV NAUSEA OR VOMITING 10/10/16 03:00 10/11/16 05:30 Metoclopramide HCl (Reglan Inj) 10 mg Q6H PRN IV NAUSEA OR VOMITING 10/10/16 03:00 10/11/16 04:20 Miscellaneous Information 1 Q361D XX 10/10/16 03:00 Chlorhexidine Gluconate (Chlorhexidine 2% Cloth) 3 pack Taper DAILY@04 TOP 10/10/16 04:00 10/06/17 03:59 10/11/16 04:00 Chlorhexidine Gluconate (Chlorhexidine 2% Cloth) 3 pack UNSCH PRN TOP HYGIENIC CARE 10/10/16 03:00 Senna/Docusate Sodium (Brittney-Colace) 1 tab BID PO 10/10/16 09:00 10/11/16 08:10 Magnesium Hydroxide (Milk Of Magnesia Liq) 30 ml Q12H PRN PO MILD - MODERATE CONSTIPATION 10/10/16 03:00 Sennosides (Senokot) 17.2 mg Q12H PRN PO MODERATE - SEVERE CONSTIPATION 10/10/16 03:00 Bisacodyl (Dulcolax Supp) 10 mg DAILY PRN RECTAL SEVERE CONSITIPATION 10/10/16 03:00 Lactulose (Lactulose Liq) 30 ml DAILY PRN PO SEVERE CONSITIPATION 10/10/16 03:00 Hydralazine HCl (Apresoline Inj) 20 mg Q4H PRN IV PUSH SBP>150, DBP>90 10/10/16 03:00 10/11/16 10:41 (Yvette Cantrell) Medical Decision Making MDM Remarks 41 y/o female with history of multiple CVA, residual aphasia and right upper extremity plegia, right lower paresis presented for AMS, anticoagulated on Coumadin, INR of 1.7 on arrival, tx with K-Centra CT Head on arrival shows right SDH with 3 mm midline shift, stable ICH and midline shift on follow up CT Head 10/11/16 with stable neurological exam (Yvette Cantrell) Plan Plan Remarks f/u CT Head reviewed, cont nonsurgical mgt, cont neuro checks in ISC, no anticoagulation at this time due to ICH medical management following, nonchemical dvt prophylaxis in view of ICH ok to transfer from NRS standpoint to 5N only near nursing station (Yvette Cantrell) Attending Statement Continue neuro checks. INR corrected Pulmonary. aggressive pulmonary toilette, nasotracheal suction, and breathing treatments with nebulizers. Daily PT and OT Nutrition. Oral diet Renal. monitor closely urine output, BUN and creatinine Endocrine. Monitor serial Acu checks and SSI as needed in detail ID monitor for signs of infection Protonix for stress ulcer prophylaxis Mango hose and SCD's for DVT prophylaxis The exam, history, and the medical decision-making described in the above note were completed with the assistance of the mid-level provider. I reviewed and agree with the findings presented. I attest that I had a [id number] encounter with the patient on the same day, and personally performed and documented my assessment and findings in the medical record. (Jimmy Rhoades MD) Yvette Cantrell Oct 11, 2016 13:21 Jimmy Rhoades MD Oct 11, 2016 15:29
[2016-10-11] MEDS: ALPRAZolam 0.5 MG TAB PO PRN (14:44)
[2016-10-11] MEDS: CYCLOBENZAPRINE HCL 10 MG TAB PO PRN (14:44)
--- NOTE | 2016-10-11 15:48 | MB ---
cc: ABRAHAM YAN M.D. DATE OF CONSULTATION: 10/10/2016 REASON FOR CONSULTATION: Consult requested by Dr. Vigil, for evaluation of subdural hematoma in a patient who is on anticoagulation for repeated stroke. HISTORY OF PRESENT ILLNESS Michelle is a 41-year-old female. She is unable to give any history due to dysarthria from multiple strokes. The patient has a history of rheumatoid arthritis, lupus, arsh's thyroiditis and liver transplant in 2013. She had developed right-sided weakness and aphasia in June of this year. She was admitted at [facility] and underwent work up. The work up was unremarkable and she was discharged in statins. No anticoagulation was recommended that time. In July of this year she suffered another stroke and this time she was started on Eliquis. With that the patient improved and she was doing fine up until August of this year which was the last month when she had a third stroke. Again she was admitted to [facility]. She was at that time started on Lovenox and aspirin and was transferred to the [facility]. She had an extensive workup with the [facility], the details of those were not available. The patient subsequently was discharged and was [facility]. During that admission patient was started on Coumadin. The patient was discharged to the retirement. The patient was found to have change in mental status when she was in retirement and she was brought into the emergency room last night. The workup shows small subdural hematoma. Neurosurgery was consulted. Neurology was consulted as well. Recommendation was made to reverse the Coumadin and stop the coumadin. The patient had received Kcentra in the emergency room. Her INR was 1.4 on admission and the day before yesterday INR was 1.7. She had developed subdural hematoma with no evidence of trauma. This morning her INR is 1.2. I have been asked to see the patient. The patient is unable to give any history due to the dysarthria. REVIEW OF SYSTEMS The review of systems is not possible. PAST MEDICAL HISTORY 1. Rheumatoid arthritis 2. Lupus 3. Depression 4. Arsh's thyroiditis 5. Liver transplant 6. Multiple strokes since June. PAST SURGICAL HISTORY 1. Liver transplant 2. Thyroidectomy ALLERGIES SULFA MEDICATIONS Please see EMR FAMILY HISTORY: Family history is noncontributory. SOCIAL HISTORY The patient does not smoke cigarettes, does not drink alcohol. PHYSICAL EXAMINATION: IN GENERAL: Physical examination is a well-developed, well-nourished white female in and in no apparent distress. VITAL SIGNS: Temperature 98, heart rate is 60, blood pressure 150/84. HEAD, EYES, EARS, NOSE, AND THROAT: Pupils equal, round, reactive to light and accommodation, extraocular muscles intact, anicteric, No oral lesions are noted. NECK: No lymphadenopathy noted. LUNGS: The lungs are clear. No wheezing, rhonchi or rales. HEART: The heart is regular rate and rhythm. ABDOMEN: The abdomen is soft, nontender. EXTREMITIES: No pedal edema. NEUROLOGIC: Awake, alert dysarthria, obvious right hemiparesis noted. SKIN: No significant lesions are noted. ASSESSMENT 1. Spontaneous subdural hematoma with the subtherapeutic INR. 2. History of recurrent stroke at least three times since June of this year. The patient was on Coumadin at the time of admission. PLAN I have reviewed her available records. Neurosurgery was consulted for the subdural hematoma. They recommended to hold the Coumadin and reverse it with Kcentra. In the emergency room the patient had received Kcentra. Neurology was consulted. They agreed to hold the Coumadin and reversal of the Coumadin. This is a complicated case. The patient has an extensive evaluation recently at [facility]. Due to repeated strokes since June of this year the patient needs to be treated with anticoagulation or antiplatelet agents. However, due to the subdural hematoma it is relatively contraindicated. Once the neurosurgeon clears her to resume either anticoagulation or antiplatelets then I will leave it up to the neurologist discretion to select the best choice of treatment for her. The patient will be followed with a repeat CT of the brain tomorrow for evaluation of any progression of the subdural hematoma. Thank you for asking my opinion MD SARABJIT Lema/tarsha /11:41 PM /3:42 PM ANGELINA
--- NOTE | 2016-10-11 15:57 | PD.ONC.PN ---
Subjective Subjective Remarks (Patient seen at 10AM, late entry) Afebrile overnight. Patient resting in bed. She is somewhat lethargic, but also complaining of pain, "all over." Objective Data Date Time Temp Pulse Resp B/P Pulse Ox O2 Delivery O2 Flow Rate FiO2 10/11/16 14:00 64 10/11/16 12:00 78 10/11/16 12:00 98.5 76 21 131/61 96 10/11/16 11:12 12 10/11/16 10:00 62 10/11/16 08:00 98.2 78 25 137/75 97 10/11/16 08:00 78 10/11/16 07:57 98 21 10/11/16 07:00 97 Room Air 10/11/16 06:00 62 10/11/16 04:00 98.4 55 15 122/71 96 10/11/16 04:00 55 10/11/16 02:00 54 10/11/16 00:00 98.6 50 17 130/76 95 10/11/16 00:00 50 10/10/16 22:00 60 10/10/16 21:46 99 21 10/10/16 20:00 66 10/10/16 20:00 97.9 66 10 156/76 97 10/10/16 19:00 97 Room Air 10/10/16 18:00 53 10/10/16 17:38 16 10/10/16 16:00 98.0 54 16 150/84 98 10/10/16 16:00 60 10/11/16 10/11/16 10/11/16 07:00 15:00 23:00 Intake Total 773 ml 973 ml Output Total 450 ml 950 ml Balance 323 ml 23 ml Result Diagram: 10/11/16 0325 10/11/16 0325 Laboratory Results Laboratory Tests Test 10/11/16 03:25 White Blood Count 6.9 TH/MM3 Red Blood Count 3.75 MIL/MM3 Hemoglobin 10.4 GM/DL Hematocrit 32.2 % Mean Corpuscular Volume 85.9 FL Mean Corpuscular Hemoglobin 27.6 PG Mean Corpuscular Hemoglobin 32.2 % Concent Red Cell Distribution Width 18.4 % Platelet Count 197 TH/MM3 Mean Platelet Volume 8.7 FL Neutrophils (%) (Auto) 75.4 % Lymphocytes (%) (Auto) 16.8 % Monocytes (%) (Auto) 7.5 % Eosinophils (%) (Auto) 0.2 % Basophils (%) (Auto) 0.1 % Neutrophils # (Auto) 5.2 TH/MM3 Lymphocytes # (Auto) 1.2 TH/MM3 Monocytes # (Auto) 0.5 TH/MM3 Eosinophils # (Auto) 0.0 TH/MM3 Basophils # (Auto) 0.0 TH/MM3 CBC Comment DIFF FINAL Differential Comment Sodium Level 139 MEQ/L Potassium Level 3.5 MEQ/L Chloride Level 105 MEQ/L Carbon Dioxide Level 22.9 MEQ/L Anion Gap 11 MEQ/L Blood Urea Nitrogen 17 MG/DL Creatinine 0.91 MG/DL Estimat Glomerular Filtration 67 ML/MIN Rate Random Glucose 104 MG/DL Calcium Level 9.1 MG/DL Phosphorus Level 2.6 MG/DL Magnesium Level 1.6 MG/DL Total Bilirubin 0.4 MG/DL Aspartate Amino Transf 8 U/L (AST/SGOT) Alanine Aminotransferase 11 U/L (ALT/SGPT) Alkaline Phosphatase 68 U/L Total Protein 8.5 GM/DL Albumin 3.2 GM/DL Imaging Studies Last [address] 10/11/16 0000 Signed Impressions: Service Date/Time: Tuesday, October 11, 2016 05:42 - CONCLUSION: 1. Stable appearance of the right-sided subdural hematoma. 2. Mild mass effect and midline shift are present. This is not significantly changed. 3. Old area of encephalomalacia in the left parietal lobe. Marty Rodriguez MD Administered Medications Medications (Trade) Dose Ordered Sig/Nubia Route PRN Reason Start Time Stop Time Status Last Admin Dose Admin Alprazolam (Xanax) 0.5 mg TID PRN PO ANXIETY 10/09/16 23:30 10/11/16 14:44 Atorvastatin Calcium (Lipitor) 80 mg HS PO 10/10/16 21:00 10/10/16 20:07 Cyclobenzaprine HCl (Flexeril) 5 mg Q8H PRN PO MUSCLE SPASM 10/09/16 23:30 10/11/16 14:44 Ferrous Sulfate (Ferrous Sulfate) 325 mg BID@,17 PO 10/10/16 12:00 10/11/16 10:45 Fluoxetine HCl (PROzac) 10 mg DAILY PO 10/10/16 09:00 10/11/16 08:11 Gabapentin (Neurontin) 900 mg Q8HR PO 10/10/16 06:00 10/11/16 14:44 Levothyroxine Sodium (Synthroid) 100 mcg DAILY@0600 PO 10/10/16 06:00 10/11/16 05:49 Oxycodone HCl (Roxicodone) 10 mg Q4H PRN PO PAIN SCALE 1 TO 10 10/09/16 23:30 10/11/16 14:45 Tacrolimus (Prograf) 1 mg BID PO 10/10/16 09:00 10/11/16 08:10 Tacrolimus 5 mg 5 mg BID PO 10/10/16 09:00 10/11/16 08:10 Sodium Chloride (NS 1000 ml Inj) 1,000 ml @ 84 mls/hr [id number] IV 10/10/16 02:48 10/11/16 14:45 Sodium Chloride (NS Flush) 2 ml BID .XX 10/10/16 09:00 10/11/16 08:11 Hydromorphone HCl (Dilaudid Pf Inj) 1 mg Q4H PRN IV PAIN SCALE 6 TO 10 10/10/16 03:00 10/11/16 10:42 Famotidine (Pepcid Inj) 20 mg Q12HR IV PUSH 10/10/16 09:00 10/11/16 08:11 Ondansetron HCl (Zofran Inj) 4 mg Q6H PRN IV NAUSEA OR VOMITING 10/10/16 03:00 10/11/16 15:21 Metoclopramide HCl (Reglan Inj) 10 mg Q6H PRN IV NAUSEA OR VOMITING 10/10/16 03:00 10/11/16 04:20 Chlorhexidine Gluconate (Chlorhexidine 2% Cloth) 3 pack Taper DAILY@04 TOP 10/10/16 04:00 10/06/17 03:59 10/11/16 04:00 Senna/Docusate Sodium (Brittney-Colace) 1 tab BID PO 10/10/16 09:00 10/11/16 08:10 Hydralazine HCl (Apresoline Inj) 20 mg Q4H PRN IV PUSH SBP>150, DBP>90 10/10/16 03:00 10/11/16 10:41 Objective Remarks GENERAL: Middle aged female supine in bed, lethargic. SKIN: Warm and dry. HEAD: Normocephalic. EYES: No injection or drainage. NECK: Supple, trachea midline. CARDIOVASCULAR: Regular rate and rhythm RESPIRATORY: Breath sounds equal bilaterally. No accessory muscle use. GASTROINTESTINAL: Abdomen soft, non-tender, nondistended. EXTREMITIES: No cyanosis NEUROLOGICAL: awake but lethargic. right sided weakness Assessment/Plan Problem List: (1) Stroke Status: Acute Plan: 10/11: hold coumadin. monitor INR, CBC. 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 --received KCENTRA for reversal of INR (2) Subdural hematoma, acute Status: Acute Plan: --neurosurgery following --anticoagulation on hold. Assessment 41y/o female with h/o CVA's admitted with SDH. Hematology consulted for h/o CVA and newly diagnosed SDH Attending Statement dysarthric coumadin is reversed and is on hold. Once NS clears for anticoag then will leave it upto neurologist discreation fo rantocoag or anti plat therapy. The exam, history, and the medical decision-making described in the above note were completed with the assistance of the mid-level provider. I reviewed and agree with the findings presented. I attest that I had a [id number] encounter with the patient on the same day, and personally performed and documented my assessment and findings in the medical record. Sophie Martinez Oct 11, 2016 15:57 Vamsi Cat MD Oct 11, 2016 21:28
[2016-10-11] MEDS: ATORVASTATIN 80 MG TAB PO SCH (21:11)
--- NOTE | 2016-10-11 21:33 | HHI.PR ---
Review/Management Diagnosis subdural hematoma--stable Diagnosis/Plan: Subjective Subjective Comments No acute events reported Active Medications Current Medications Medications (Trade) Dose Ordered Sig/Nubia Route Start Time Stop Time Status Last Admin (Xanax) 0.5 mg TID PRN PO 10/09/16 23:30 10/11/16 14:44 (Lipitor) 80 mg HS PO 10/10/16 21:00 10/11/16 21:11 (Flexeril) 5 mg Q8H PRN PO 10/09/16 23:30 10/11/16 14:44 (Ferrous Sulfate) 325 mg BID@ PO 10/10/16 12:00 10/11/16 18:31 (PROzac) 10 mg DAILY PO 10/10/16 09:00 10/11/16 08:11 (Neurontin) 900 mg Q8HR PO 10/10/16 06:00 10/11/16 21:11 (Synthroid) 100 mcg DAILY@0600 PO 10/10/16 06:00 10/11/16 05:49 (Roxicodone) 10 mg Q4H PRN PO 10/09/16 23:30 10/11/16 14:45 (Brittney-Colace) 1 tab BID PO 10/10/16 09:00 (Prograf) 1 mg BID PO 10/10/16 09:00 10/11/16 21:11 Tacrolimus 5 mg 5 mg BID PO 10/10/16 09:00 10/11/16 21:11 (NS 1000 ml Inj) 1,000 ml @ 84 mls/hr [id number] IV 10/10/16 02:48 10/11/16 14:45 (NS Flush) 2 ml UNSCH PRN .XX 10/10/16 03:00 (NS Flush) 2 ml BID .XX 10/10/16 09:00 10/11/16 21:11 (Tylenol) 650 mg Q6H PRN PO 10/10/16 03:00 (Dilaudid Pf Inj) 1 mg Q4H PRN IV 10/10/16 03:00 10/11/16 20:10 (Pepcid Inj) 20 mg Q12HR IV PUSH 10/10/16 09:00 10/11/16 21:12 (Ativan Inj) 1 mg Q1H PRN IV 10/10/16 03:00 (Zofran Inj) 4 mg Q6H PRN IV 10/10/16 03:00 10/11/16 15:21 (Reglan Inj) 10 mg Q6H PRN IV 10/10/16 03:00 10/11/16 20:10 Miscellaneous Information 1 Q361D XX 10/10/16 03:00 (Chlorhexidine 2% Cloth) 3 pack Taper DAILY@04 TOP 10/10/16 04:00 10/06/17 03:59 10/11/16 04:00 (Chlorhexidine 2% Cloth) 3 pack UNSCH PRN TOP 10/10/16 03:00 (Brittney-Colace) 1 tab BID PO 10/10/16 09:00 10/11/16 21:11 (Milk Of Magnesia Liq) 30 ml Q12H PRN PO 10/10/16 03:00 (Senokot) 17.2 mg Q12H PRN PO 10/10/16 03:00 (Dulcolax Supp) 10 mg DAILY PRN RECTAL 10/10/16 03:00 (Lactulose Liq) 30 ml DAILY PRN PO 10/10/16 03:00 (Apresoline Inj) 20 mg Q4H PRN IV PUSH 10/10/16 03:00 10/11/16 16:45 Allergies Allergies Coded Allergies Sulfa (Verified Adverse Reaction, Mild, NAUSEA, 10/08/16) Exam I&O / VS 10/10/16 10/10/16 10/11/16 14:59 22:59 06:59 Intake Total 679 ml 963 ml 773 ml Output Total 325 ml 1250 ml 450 ml Balance 354 ml -287 ml 323 ml Intake Oral 0 ml 240 ml 240 ml IV Total 679 ml 723 ml 533 ml Output Urine Total 325 ml 1250 ml 450 ml # Bowel Movements 0 0 0 Vital Signs Date Time Temp Pulse Resp B/P Pulse Ox O2 Delivery O2 Flow Rate FiO2 10/11/16 20:40 18 10/11/16 19:45 99 10/11/16 18:00 82 10/11/16 16:00 98.7 55 18 138/80 98 10/11/16 16:00 55 10/11/16 15:45 18 10/11/16 14:00 64 10/11/16 12:00 78 10/11/16 12:00 98.5 76 21 131/61 96 10/11/16 10:00 62 10/11/16 08:00 98.2 78 25 137/75 97 10/11/16 08:00 78 10/11/16 07:57 98 21 10/11/16 07:00 97 Room Air 10/11/16 06:00 62 10/11/16 04:00 98.4 55 15 122/71 96 10/11/16 04:00 55 10/11/16 02:00 54 10/11/16 00:00 98.6 50 17 130/76 95 10/11/16 00:00 50 10/10/16 22:00 60 10/10/16 21:46 99 21 Respiratory: Lungs CTA, Non-labored respirations, BS equal, Symmetrical expansion Cardiology: Normal rate, Normal peripheral perfusion, Regular Rhythm Musculoskeletal: Tenderness, Swelling, Other Exam Comments alert speech normal CN intact Motor 1/5 RUE and RLE/ 5/5 LUE and LLE Objective Radiology Results CT brain--stable small right subdural hematoma Micro and Labs Laboratory Tests Test 10/11/16 03:25 White Blood Count 6.9 Red Blood Count 3.75 Hemoglobin 10.4 Hematocrit 32.2 Mean Corpuscular Volume 85.9 Mean Corpuscular Hemoglobin 27.6 Mean Corpuscular Hemoglobin 32.2 Concent Red Cell Distribution Width 18.4 Platelet Count 197 Mean Platelet Volume 8.7 Neutrophils (%) (Auto) 75.4 Lymphocytes (%) (Auto) 16.8 Monocytes (%) (Auto) 7.5 Eosinophils (%) (Auto) 0.2 Basophils (%) (Auto) 0.1 Neutrophils # (Auto) 5.2 Lymphocytes # (Auto) 1.2 Monocytes # (Auto) 0.5 Eosinophils # (Auto) 0.0 Basophils # (Auto) 0.0 CBC Comment DIFF FINAL Differential Comment Sodium Level 139 Potassium Level 3.5 Chloride Level 105 Carbon Dioxide Level 22.9 Anion Gap 11 Blood Urea Nitrogen 17 Creatinine 0.91 Estimat Glomerular Filtration 67 Rate Random Glucose 104 Calcium Level 9.1 Phosphorus Level 2.6 Magnesium Level 1.6 Total Bilirubin 0.4 Aspartate Amino Transf 8 (AST/SGOT) Alanine Aminotransferase 11 (ALT/SGPT) Alkaline Phosphatase 68 Total Protein 8.5 Albumin 3.2 David Gardner PhD Oct 11, 2016 21:33
[2016-10-12] VITALS (11 sets, daily range): BP systolic 142–168; BP diastolic 67–92; PULSE 62–85; RESP 11–20; TEMP 97.7–98.5; O2SAT 95–100
[2016-10-12] MEDS: HYDROmorphone HCL PF 1 MG/ML VIAL IV PRN ×5 (01:20→20:12)
[2016-10-12] MEDS: METOCLOPRAMIDE HCL 10 MG/2 ML VIAL IV PRN ×2 (02:40→13:42)
[2016-10-12] MEDS: SODIUM CHLOR 0.9% 1000 ML INJ 1,000 ML IV SCH ×2 (02:40→13:48)
[2016-10-12] MEDS: CHLORHEXIDINE GLUCONATE 2 % 1 PACK (2 CLOTHS) TOP SCH (04:42)
[2016-10-12] MEDS: LEVOTHYROXINE SODIUM 100 MCG TAB PO SCH (05:25)
[2016-10-12] MEDS: GABAPENTIN 300 MG CAP PO SCH ×3 (05:25→21:32)
[2016-10-12] MEDS: DOCUSATE SODIUM 50 MG/SENNA 8.6 MG TAB PO SCH ×4 (08:43→21:37)
[2016-10-12] MEDS: FLUoxetine HCL 10 MG CAP PO SCH (08:43)
[2016-10-12] MEDS: TACROLIMUS 1 MG CAP PO SCH ×3 (08:43→22:12)
[2016-10-12] MEDS: TACROLIMUS 5 MG CAP PO SCH ×3 (08:44→22:12)
[2016-10-12] MEDS: ONDANSETRON HCL 4 MG/2 ML VIAL IV PRN ×2 (08:59→16:03)
[2016-10-12] MEDS: SODIUM CHLORIDE 0.9% FLUSH 10 ML FLUSH SCH ×2 (09:05→21:31)
[2016-10-12] MEDS: FAMOTIDINE 20 MG/2 ML VIAL IV PUSH SCH ×2 (09:06→21:32)
--- NOTE | 2016-10-12 10:39 | HHI.NSPN ---
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 The patient has residual right hemiparesis and aphasia. She he was noted to have some altered mental status changes while at [facility] and brought over to [place] for evaluation. Currently, according to family members, she is back to her baseline status as far as her mental status and aphasia are concerned. She is not complaining of any headache or nausea. Workup in the emergency room included CT scan of the brain which shows a small amount of acute subdural blood in the right posterior frontal parietal region measuring approximately 6 mm in greatest thickness. It is only several cm in length. There does appear to be some fullness of the right hemisphere and midline is shifted over approximately 3-mm; however, there is significant loss of volume on the left from previous infarct to the left hemisphere. The patient is currently on Coumadin anticoagulation and on admission her INR was 1.7. 10/10: stable neuro exam, most recent INR was 1.4 yesterday 10/11: neuro checks stable overnight. f/u CT Head this morning completed. 10/12: doing well, stable neuro checks overnight. (Yvette Cantrell) Labs, Micro, & Vital Signs Results Date Time Temp Pulse Resp B/P Pulse Ox O2 Delivery O2 Flow Rate FiO2 10/12/16 10:00 72 10/12/16 08:00 98.1 74 15 145/85 99 10/12/16 08:00 66 10/12/16 07:00 97 Room Air 10/12/16 06:00 64 10/12/16 04:00 98.3 64 16 157/74 99 10/12/16 04:00 64 10/12/16 02:00 66 10/12/16 00:00 72 10/12/16 00:00 98.5 72 15 156/75 98 10/11/16 23:30 14 10/11/16 22:00 70 10/11/16 20:40 18 10/11/16 20:00 72 10/11/16 20:00 99.3 72 15 139/71 98 10/11/16 19:45 99 10/11/16 19:00 98 Room Air 10/11/16 18:00 82 10/11/16 16:00 98.7 55 18 138/80 98 10/11/16 16:00 55 10/11/16 14:00 64 10/11/16 12:00 78 10/11/16 12:00 98.5 76 21 131/61 96 10/12/16 07:00 Intake Total 2871 ml Output Total 1600 ml Balance 1271 ml Constitutional Vital Signs Date Time Temp Pulse Resp B/P Pulse Ox O2 Delivery O2 Flow Rate FiO2 10/12/16 10:00 72 10/12/16 08:00 98.1 74 15 145/85 99 10/12/16 08:00 66 10/12/16 07:00 97 Room Air 10/12/16 06:00 64 10/12/16 04:00 98.3 64 16 157/74 99 10/12/16 04:00 64 10/12/16 02:00 66 10/12/16 00:00 72 10/12/16 00:00 98.5 72 15 156/75 98 10/11/16 23:30 14 10/11/16 22:00 70 10/11/16 20:40 18 10/11/16 20:00 72 10/11/16 20:00 99.3 72 15 139/71 98 10/11/16 19:45 99 10/11/16 19:00 98 Room Air 10/11/16 18:00 82 10/11/16 16:00 98.7 55 18 138/80 98 10/11/16 16:00 55 10/11/16 14:00 64 10/11/16 12:00 78 10/11/16 12:00 98.5 76 21 131/61 96 10/12/16 07:00 Intake Total 2871 ml Output Total 1600 ml Balance 1271 ml (Yvette Cantrell) Review of Systems/Exam Exam Ms. Alaniz is awake. aphasic, attempting to converse. Follows simple commands. Cranial nerve examination: pupils 4 mm round b/l. Right facial weakness. Neck is soft and supple. Motor: moves left side and right lower extremity off the bed. 0/5 right upper. Difficult to assess detail exam due to aphasia. Cerebellar examination: cannot assess due to clinical condition (Yvette Cantrell) Medications Current Medications Current Medications Medications (Trade) Dose Ordered Sig/Nubia Route PRN Reason Start Time Stop Time Status Last Admin Dose Admin Alprazolam (Xanax) 0.5 mg TID PRN PO ANXIETY 10/09/16 23:30 10/11/16 14:44 Atorvastatin Calcium (Lipitor) 80 mg HS PO 10/10/16 21:00 10/11/16 21:11 Cyclobenzaprine HCl (Flexeril) 5 mg Q8H PRN PO MUSCLE SPASM 10/09/16 23:30 10/11/16 14:44 Ferrous Sulfate (Ferrous Sulfate) 325 mg BID@,17 PO 10/10/16 12:00 10/11/16 18:31 Fluoxetine HCl (PROzac) 10 mg DAILY PO 10/10/16 09:00 10/12/16 08:43 Gabapentin (Neurontin) 900 mg Q8HR PO 10/10/16 06:00 10/12/16 05:25 Levothyroxine Sodium (Synthroid) 100 mcg DAILY@0600 PO 10/10/16 06:00 10/12/16 05:25 Oxycodone HCl (Roxicodone) 10 mg Q4H PRN PO PAIN SCALE 1 TO 10 10/09/16 23:30 10/12/16 08:59 Senna/Docusate Sodium (Brittney-Colace) 1 tab BID PO 10/10/16 09:00 Tacrolimus (Prograf) 1 mg BID PO 10/10/16 09:00 10/12/16 08:43 Tacrolimus 5 mg 5 mg BID PO 10/10/16 09:00 10/12/16 08:44 Sodium Chloride (NS 1000 ml Inj) 1,000 ml @ 84 mls/hr [id number] IV 10/10/16 02:48 10/12/16 02:40 Sodium Chloride (NS Flush) 2 ml UNSCH PRN .XX FLUSH AFTER USING IV ACCESS 10/10/16 03:00 Sodium Chloride (NS Flush) 2 ml BID .XX 10/10/16 09:00 10/12/16 09:05 Acetaminophen (Tylenol) 650 mg Q6H PRN PO PAIN 1-10 AND/OR FEVER >101F 10/10/16 03:00 Hydromorphone HCl (Dilaudid Pf Inj) 1 mg Q4H PRN IV PAIN SCALE 6 TO 10 10/10/16 03:00 10/12/16 05:26 Famotidine (Pepcid Inj) 20 mg Q12HR IV PUSH 10/10/16 09:00 10/12/16 09:06 Lorazepam (Ativan Inj) 1 mg Q1H PRN IV Agitation/Sedation 10/10/16 03:00 Ondansetron HCl (Zofran Inj) 4 mg Q6H PRN IV NAUSEA OR VOMITING 10/10/16 03:00 10/12/16 08:59 Metoclopramide HCl (Reglan Inj) 10 mg Q6H PRN IV NAUSEA OR VOMITING 10/10/16 03:00 10/12/16 02:40 Miscellaneous Information 1 Q361D XX 10/10/16 03:00 Chlorhexidine Gluconate (Chlorhexidine 2% Cloth) 3 pack Taper DAILY@04 TOP 10/10/16 04:00 10/06/17 03:59 10/12/16 04:42 Chlorhexidine Gluconate (Chlorhexidine 2% Cloth) 3 pack UNSCH PRN TOP HYGIENIC CARE 10/10/16 03:00 Senna/Docusate Sodium (Brittney-Colace) 1 tab BID PO 10/10/16 09:00 10/12/16 08:43 Magnesium Hydroxide (Milk Of Magnesia Liq) 30 ml Q12H PRN PO MILD - MODERATE CONSTIPATION 10/10/16 03:00 Sennosides (Senokot) 17.2 mg Q12H PRN PO MODERATE - SEVERE CONSTIPATION 10/10/16 03:00 Bisacodyl (Dulcolax Supp) 10 mg DAILY PRN RECTAL SEVERE CONSITIPATION 10/10/16 03:00 Lactulose (Lactulose Liq) 30 ml DAILY PRN PO SEVERE CONSITIPATION 10/10/16 03:00 Hydralazine HCl (Apresoline Inj) 20 mg Q4H PRN IV PUSH SBP>150, DBP>90 10/10/16 03:00 10/11/16 16:45 (Yvette Cantrell) Medical Decision Making MDM Remarks 41 y/o female with history of multiple CVA, residual aphasia and right upper extremity plegia, right lower paresis presented for AMS, anticoagulated on Coumadin, INR of 1.7 on arrival, tx with K-Centra CT Head on arrival shows right SDH with 3 mm midline shift, stable ICH and midline shift on follow up CT Head 10/11/16 stable neurological exam (Yvette Cantrell) Plan Plan Remarks cont nonsurgical mgt, cont serial neuro checks, no anticoagulation at this time due to ICH nonchemical dvt prophylaxis in view of ICH medical management following, ok to transfer from N[facility] standpoint to 5N only near nursing station (Yvette Cantrell) Attending Statement The exam, history, and the medical decision-making described in the above note were completed with the assistance of the mid-level provider. I reviewed and agree with the findings presented. I attest that I had a [id number] encounter with the patient on the same day, and personally performed and documented my assessment and findings in the medical record. (Jimmy Rhoades MD) Yvette Cantrell Oct 12, 2016 10:39 Jimmy Rhoades MD Oct 16, 2016 18:37
[2016-10-12] MEDS: FERROUS SULFATE 325 MG (65 MG ELEMENTAL IRON) TAB PO SCH ×2 (11:22→16:03)
--- NOTE | 2016-10-12 17:59 | HHI.PR ---
Subjective Remarks Pt with expressive aphasia and right sided weakness Transferred out of [facility] today [facility] team has taken over her care Vitals are stable. No issues reported per nursing staff. Objective Vitals Vital Signs Date Time Temp Pulse Resp B/P Pulse Ox O2 Delivery O2 Flow Rate FiO2 10/12/16 16:44 98.3 72 20 142/81 97 10/12/16 16:00 71 10/12/16 16:00 98.3 73 12 148/83 98 10/12/16 14:00 80 10/12/16 12:00 74 10/12/16 12:00 98.1 74 11 168/92 100 10/12/16 10:00 72 10/12/16 08:00 98.1 74 15 145/85 99 10/12/16 08:00 66 10/12/16 07:00 97 Room Air 10/12/16 06:00 64 10/12/16 04:00 98.3 64 16 157/74 99 10/12/16 04:00 64 10/12/16 02:00 66 10/12/16 00:00 72 10/12/16 00:00 98.5 72 15 156/75 98 10/11/16 23:30 14 10/11/16 22:00 70 10/11/16 20:40 18 10/11/16 20:00 72 10/11/16 20:00 99.3 72 15 139/71 98 10/11/16 19:45 99 10/11/16 19:00 98 Room Air 10/11/16 18:00 82 10/11/16 10/11/16 10/12/16 15:00 23:00 07:00 Intake Total 973 ml 1127 ml 771 ml Output Total 950 ml 325 ml 325 ml Balance 23 ml 802 ml 446 ml Intake Oral 240 ml 480 ml 240 ml IV Total 733 ml 647 ml 531 ml Output Urine Total 950 ml 325 ml 325 ml # Bowel Movements 1 1 0 Result Diagram: 10/11/16 0325 10/11/16 0325 Other Results Laboratory Tests Test 10/11/16 03:25 White Blood Count 6.9 TH/MM3 Red Blood Count 3.75 MIL/MM3 Hemoglobin 10.4 GM/DL Hematocrit 32.2 % Mean Corpuscular Volume 85.9 FL Mean Corpuscular Hemoglobin 27.6 PG Mean Corpuscular Hemoglobin 32.2 % Concent Red Cell Distribution Width 18.4 % Platelet Count 197 TH/MM3 Mean Platelet Volume 8.7 FL Neutrophils (%) (Auto) 75.4 % Lymphocytes (%) (Auto) 16.8 % Monocytes (%) (Auto) 7.5 % Eosinophils (%) (Auto) 0.2 % Basophils (%) (Auto) 0.1 % Neutrophils # (Auto) 5.2 TH/MM3 Lymphocytes # (Auto) 1.2 TH/MM3 Monocytes # (Auto) 0.5 TH/MM3 Eosinophils # (Auto) 0.0 TH/MM3 Basophils # (Auto) 0.0 TH/MM3 CBC Comment DIFF FINAL Differential Comment Sodium Level 139 MEQ/L Potassium Level 3.5 MEQ/L Chloride Level 105 MEQ/L Carbon Dioxide Level 22.9 MEQ/L Anion Gap 11 MEQ/L Blood Urea Nitrogen 17 MG/DL Creatinine 0.91 MG/DL Estimat Glomerular Filtration 67 ML/MIN Rate Random Glucose 104 MG/DL Calcium Level 9.1 MG/DL Phosphorus Level 2.6 MG/DL Magnesium Level 1.6 MG/DL Total Bilirubin 0.4 MG/DL Aspartate Amino Transf 8 U/L (AST/SGOT) Alanine Aminotransferase 11 U/L (ALT/SGPT) Alkaline Phosphatase 68 U/L Total Protein 8.5 GM/DL Albumin 3.2 GM/DL Imaging Last Impressions Head CT 10/11/16 0000 Signed Impressions: Service Date/Time: Tuesday, October 11, 2016 05:42 - CONCLUSION: 1. Stable appearance of the right-sided subdural hematoma. 2. Mild mass effect and midline shift are present. This is not significantly changed. 3. Old area of encephalomalacia in the left parietal lobe. Marty Rodriguez MD Neck CTA 10/09/16 2221 Signed Impressions: Service Date/Time: Monday, October 10, 2016 14:15 - CONCLUSION: 1. Abnormal diffusely small caliber left internal carotid artery with apparent occlusion of the carotid terminus. Differential considerations include vasculitis versus flow related caliber change. Clinical correlation is recommended. Comparison with prior imaging would be beneficial in further evaluation. 2. 5 mm solid left upper lobe lung nodule. No routine followup is recommended for low-risk patients. If patient is high risk, a followup CT examination in 12 months is recommended per 2017 Fleischner criteria. Nixon Sherwood MD Head CTA 10/09/16 222 Signed Impressions: Service Date/Time: Monday, October 10, 2016 14:15 - CONCLUSION: 1. No evidence for aneurysm or AV malformation as questioned. 2. Occlusion of the left ICA terminus with reconstitution of the middle and anterior cerebral arteries through the anterior commuting artery. Watershed territory left parieto-occipital and high convexity posterior parietal encephalomalacia consistent with chronic etiology. Comparisons with prior examinations would be beneficial in further evaluation. 3. Redemonstration of 5 mm right-sided subdural hematoma and associated subtle 2 mm [id number] subfalcine shift. Nixon Sherwood MD Objective Remarks General: NAD, Awake and alert Chest:CTA Cardiac: Regular Abd: +BS, soft ND/NT Ext: Right sided weakness Neuro: Expressive aphasia, right sided weakness A/P Problem List: (1) Subdural hematoma, acute Status: Acute Plan: - Pt is a 41 y/o female with RA, lupus, s/p of liver transplant in 2013, and recent hx of CVA in June 2016 with aphasia and right sided weakness but no clear etiology was determined. In July 2016 she suffered another stroke with similar symptoms and was discharged on Eliquis. Pt reportedly had a loop recorded implanted by Dr. Montero. She was admitted to [facility] in August 2016 after she had a 3rd stroke with worsening aphasia and right sided weakness. She was put on Lovenox and ASA as she failed Eliquis. She was transferred to [place] for further treatment. She was diagnosed with a Left cryptogenic cerebral infarction of watershed distribution. There was concern for hypercoagulable state due to RA and lupus. She had LP, suggestive of ?vasculitis. Pt was a sent to [facility] for comprehensive rehabilitation from September 03, 2016 to September 23, 2016 and was then discharged to SNF on Coumadin. - Pt was sent to [facility] on 10/08/16 for AMS and subtherapeutic INR, 1.7 at admission. - Head CT (10/09) --> Right sided SDH measuring up to 6mm and associated 3mm midline shift towards the left and old left sided infarction involving the parietal-occipital and high convexity parietal region. - Pt was admitted to [facility] and given Kcentra - Neurosurgery was consulted and nonoperative management was recommended - CTA Head (10/10) --> No evidence for aneurysm or AV malformation as questioned. Occlusion of the left ICA terminus with reconstitution of the middle and anterior cerebral arteries through the anterior commuting artery. Watershed territory left parieto-occipital and high convexity posterior parietal encephalomalacia consistent with chronic etiology. Re- demonstration of 5 mm right-sided subdural hematoma and associated subtle 2 mm [id number] subfalcine shift. - CTA neck (10/10) -->Abnormal diffusely small caliber left internal carotid artery with apparent occlusion of the carotid terminus. Differential considerations include vasculitis versus flow related caliber change. Clinical correlation is recommended. 5 mm solid left upper lobe lung nodule. No routine followup is recommended for low-risk patients. If patient is high risk, a followup CT examination in 12 months is recommended - Repeat Head CT (10/11) --> Stable appearance of the right-sided SDH, mild mass effect and midline shift are present, not significantly changed. - Neurology and Hematology are following. - Will discuss with Neurology recommendations for anticoagulation and when to resume - PT/ST/OT evaluation - Stop IVF - BP control PRN - Supportive care - DVT prophylaxis with SCDs in the setting of SDH (2) Stroke Status: Chronic Plan: - See above. (3) Subtherapeutic anticoagulation Status: Acute Plan: - See above. (4) History of lupus Status: Chronic (5) Hypothyroidism Status: Chronic Plan: - Cont. home meds (6) Depression Status: Chronic (7) Transplanted liver Status: Chronic Plan: - Pt is on Prograf 6mg po BID - Check Tacrolimus level Assessment and Plan Patient examined. Assessment and plan formulated with Sadnra Bishop PA-C. I agree with the above. Sandra Bishop Oct 12, 2016 17:59 Yonny Amor DO Oct 15, 2016 23:38
[2016-10-12] MEDS ORDERED: ENALAPRILAT 1.25 MG/ML VIAL IV PUSH PRN (18:00)
--- NOTE | 2016-10-12 20:24 | HHI.PR ---
Review/Management Diagnosis subdural hematoma--stable Plan would not start anticoagulation at this time due to risk of expanding the subdural hematoma. Repeat CT brain in one week and consider anticoagulation if subdural resolved. Diagnosis/Plan: Subjective Subjective Comments No acute events reported No headache Active Medications Current Medications Medications (Trade) Dose Ordered Sig/Nubia Route Start Time Stop Time Status Last Admin (Xanax) 0.5 mg TID PRN PO 10/09/16 23:30 10/11/16 14:44 (Lipitor) 80 mg HS PO 10/10/16 21:00 10/11/16 21:11 (Flexeril) 5 mg Q8H PRN PO 10/09/16 23:30 10/11/16 14:44 (Ferrous Sulfate) 325 mg BID@ PO 10/10/16 12:00 10/12/16 16:03 (PROzac) 10 mg DAILY PO 10/10/16 09:00 10/12/16 08:43 (Neurontin) 900 mg Q8HR PO 10/10/16 06:00 10/12/16 13:26 (Synthroid) 100 mcg DAILY@0600 PO 10/10/16 06:00 10/12/16 05:25 (Roxicodone) 10 mg Q4H PRN PO 10/09/16 23:30 10/12/16 17:32 (Prograf) 1 mg BID PO 10/10/16 09:00 10/12/16 08:43 Tacrolimus 5 mg 5 mg BID PO 10/10/16 09:00 10/12/16 08:44 (NS 1000 ml Inj) 1,000 ml @ 84 mls/hr [id number] IV 10/10/16 02:48 10/12/16 13:48 (NS Flush) 2 ml UNSCH PRN .XX 10/10/16 03:00 (NS Flush) 2 ml BID .XX 10/10/16 09:00 10/12/16 09:05 (Tylenol) 650 mg Q6H PRN PO 10/10/16 03:00 (Dilaudid Pf Inj) 1 mg Q4H PRN IV 10/10/16 03:00 10/12/16 20:12 (Pepcid Inj) 20 mg Q12HR IV PUSH 10/10/16 09:00 10/12/16 09:06 (Ativan Inj) 1 mg Q1H PRN IV 10/10/16 03:00 (Zofran Inj) 4 mg Q6H PRN IV 10/10/16 03:00 10/12/16 16:03 (Reglan Inj) 10 mg Q6H PRN IV 10/10/16 03:00 10/12/16 13:42 Miscellaneous Information 1 Q361D XX 10/10/16 03:00 (Chlorhexidine 2% Cloth) 3 pack Taper DAILY@04 TOP 10/10/16 04:00 10/06/17 03:59 10/12/16 04:42 (Chlorhexidine 2% Cloth) 3 pack UNSCH PRN TOP 10/10/16 03:00 (Brittney-Colace) 1 tab BID PO 10/10/16 09:00 10/12/16 08:43 (Milk Of Magnesia Liq) 30 ml Q12H PRN PO 10/10/16 03:00 (Senokot) 17.2 mg Q12H PRN PO 10/10/16 03:00 (Dulcolax Supp) 10 mg DAILY PRN RECTAL 10/10/16 03:00 (Lactulose Liq) 30 ml DAILY PRN PO 10/10/16 03:00 (Vasotec Inj) 1.25 mg Q6H PRN IV PUSH 10/12/16 18:00 Allergies Allergies Coded Allergies Sulfa (Verified Adverse Reaction, Mild, NAUSEA, 10/08/16) Exam I&O / VS 10/11/16 10/11/16 10/12/16 15:00 23:00 07:00 Intake Total 973 ml 1127 ml 771 ml Output Total 950 ml 325 ml 325 ml Balance 23 ml 802 ml 446 ml Intake Oral 240 ml 480 ml 240 ml IV Total 733 ml 647 ml 531 ml Output Urine Total 950 ml 325 ml 325 ml # Bowel Movements 1 1 0 Vital Signs Date Time Temp Pulse Resp B/P Pulse Ox O2 Delivery O2 Flow Rate FiO2 10/12/16 16:44 98.3 72 20 142/81 97 10/12/16 16:00 71 10/12/16 16:00 98.3 73 12 148/83 98 10/12/16 14:00 80 10/12/16 12:00 74 10/12/16 12:00 98.1 74 11 168/92 100 10/12/16 10:00 72 10/12/16 08:00 98.1 74 15 145/85 99 10/12/16 08:00 66 10/12/16 07:00 97 Room Air 10/12/16 06:00 64 10/12/16 04:00 98.3 64 16 157/74 99 10/12/16 04:00 64 10/12/16 02:00 66 10/12/16 00:00 72 10/12/16 00:00 98.5 72 15 156/75 98 10/11/16 23:30 14 10/11/16 22:00 70 10/11/16 20:40 18 Respiratory: Lungs CTA, Non-labored respirations, BS equal, Symmetrical expansion Cardiology: Normal rate, Normal peripheral perfusion, Regular Rhythm Musculoskeletal: Tenderness, Swelling, Other Exam Comments alert speech normal CN intact Motor 1/5 RUE and RLE/ 5/5 LUE and Dvaid Banuelos PhD MD Oct 12, 2016 20:24
[2016-10-13] VITALS: BP 140/74; PULSE 79; RESP 20; TEMP 97.1; O2SAT 96
[2016-10-13] MEDS: HYDROmorphone HCL PF 1 MG/ML VIAL IV PRN ×6 (01:03→22:27)
[2016-10-13] MEDS: ATORVASTATIN 80 MG TAB PO SCH ×2 (02:58→20:47)
[2016-10-13] MEDS: SODIUM CHLOR 0.9% 1000 ML INJ 1,000 ML IV SCH ×2 (02:59→14:13)
[2016-10-13 04:00] VITALS: BP 129/78; PULSE 72; RESP 18; TEMP 97.3; O2SAT 100
[2016-10-13] MEDS: CHLORHEXIDINE GLUCONATE 2 % 1 PACK (2 CLOTHS) TOP SCH (04:00)
[2016-10-13] MEDS: GABAPENTIN 300 MG CAP PO SCH ×3 (05:45→22:27)
[2016-10-13] MEDS: LEVOTHYROXINE SODIUM 100 MCG TAB PO SCH (05:45)
[2016-10-13 08:00] VITALS: BP 157/87; PULSE 67; RESP 17; TEMP 97.8; O2SAT 98
[2016-10-13] MEDS: SODIUM CHLORIDE 0.9% FLUSH 10 ML FLUSH SCH ×2 (08:15→20:46)
[2016-10-13] MEDS: FAMOTIDINE 20 MG/2 ML VIAL IV PUSH SCH ×2 (08:15→20:47)
[2016-10-13] MEDS: FLUoxetine HCL 10 MG CAP PO SCH (08:15)
[2016-10-13] MEDS: FERROUS SULFATE 325 MG (65 MG ELEMENTAL IRON) TAB PO SCH ×2 (10:35→16:15)
[2016-10-13 12:00] VITALS: BP_SYST 151; BP_SYST 156; BP_DIAS 79; BP_DIAS 87; PULSE 73; PULSE 90; RESP 17; RESP 20; TEMP 97.8; O2SAT 95; O2SAT 98
--- NOTE | 2016-10-13 14:01 | HHI.PR ---
Subjective Remarks No new complaints. Objective Vitals Vital Signs Date Time Temp Pulse Resp B/P Pulse Ox O2 Delivery O2 Flow Rate FiO2 10/13/16 12:00 97.8 73 17 156/87 98 10/13/16 08:00 97.8 67 17 157/87 98 10/13/16 04:00 97.3 72 18 129/78 100 10/13/16 00:00 97.1 79 20 140/74 96 10/12/16 20:00 97.7 85 18 144/67 95 10/12/16 16:44 98.3 72 20 142/81 97 10/12/16 16:00 71 10/12/16 16:00 98.3 73 12 148/83 98 10/12/16 14:00 80 10/12/16 10/12/16 10/13/16 15:00 23:00 07:00 Intake Total 1054 ml 187 ml Output Total 550 ml 850 ml Balance 504 ml 187 ml -850 ml Intake Oral 400 ml IV Total 654 ml 187 ml Output Urine Total 550 ml 850 ml # Bowel Movements 1 1 Result Diagram: 10/11/16 0325 10/11/16 0325 Imaging Last Impressions Head CT 10/11/16 0000 Signed Impressions: Service Date/Time: Tuesday, October 11, 2016 05:42 - CONCLUSION: 1. Stable appearance of the right-sided subdural hematoma. 2. Mild mass effect and midline shift are present. This is not significantly changed. 3. Old area of encephalomalacia in the left parietal lobe. Marty Rodriguez MD Neck CTA 10/09/162220 Signed Impressions: Service Date/Time: Monday, October 10, 2016 14:15 - CONCLUSION: 1. Abnormal diffusely small caliber left internal carotid artery with apparent occlusion of the carotid terminus. Differential considerations include vasculitis versus flow related caliber change. Clinical correlation is recommended. Comparison with prior imaging would be beneficial in further evaluation. 2. 5 mm solid left upper lobe lung nodule. No routine followup is recommended for low-risk patients. If patient is high risk, a followup CT examination in 12 months is recommended per 2017 Fleischner criteria. Nixon Sherwood MD Head CTA 10/09/162220 Signed Impressions: Service Date/Time: Monday, October 10, 2016 14:15 - CONCLUSION: 1. No evidence for aneurysm or AV malformation as questioned. 2. Occlusion of the left ICA terminus with reconstitution of the middle and anterior cerebral arteries through the anterior commuting artery. Watershed territory left parieto-occipital and high convexity posterior parietal encephalomalacia consistent with chronic etiology. Comparisons with prior examinations would be beneficial in further evaluation. 3. Redemonstration of 5 mm right-sided subdural hematoma and associated subtle 2 mm [id number] subfalcine shift. Nixon Sherwood MD Objective Remarks General: NAD, Awake and alert Chest:CTA Cardiac: Regular Abd: +BS, soft ND/NT Ext: Right sided weakness Neuro: Expressive aphasia, right sided weakness A/P Problem List: (1) Subdural hematoma, acute Status: Acute Plan: - Comgmt with Neurology and Hematology - Pt is a 41 y/o female with RA, lupus, s/p of liver transplant in 2013, and recent hx of CVA in June 2016 with aphasia and right sided weakness but no clear etiology was determined. In July 2016 she suffered another stroke with similar symptoms and was discharged on Eliquis. Pt reportedly had a loop recorded implanted by Dr. Montero. She was admitted to [facility] in August 2016 after she had a 3rd stroke with worsening aphasia and right sided weakness. She was put on Lovenox and ASA as she failed Eliquis. She was transferred to [place] for further treatment. She was diagnosed with a Left cryptogenic cerebral infarction of watershed distribution. There was concern for hypercoagulable state due to RA and lupus. She had LP, suggestive of ?vasculitis. Pt was a sent to [facility] for comprehensive rehabilitation from September 03, 2016 to September 23, 2016 and was then discharged to SNF on Coumadin. - Pt was sent to [facility] on 10/08/16 for AMS and subtherapeutic INR, 1.7 at admission. - Head CT (10/09) --> Right sided SDH measuring up to 6mm and associated 3mm midline shift towards the left and old left sided infarction involving the parietal-occipital and high convexity parietal region. - Pt was admitted to [facility] and given Kcentra - Neurosurgery was consulted and nonoperative management was recommended - CTA Head (10/10) --> No evidence for aneurysm or AV malformation as questioned. Occlusion of the left ICA terminus with reconstitution of the middle and anterior cerebral arteries through the anterior commuting artery. Watershed territory left parieto-occipital and high convexity posterior parietal encephalomalacia consistent with chronic etiology. Re- demonstration of 5 mm right-sided subdural hematoma and associated subtle 2 mm [id number] subfalcine shift. - CTA neck (10/10) -->Abnormal diffusely small caliber left internal carotid artery with apparent occlusion of the carotid terminus. Differential considerations include vasculitis versus flow related caliber change. Clinical correlation is recommended. 5 mm solid left upper lobe lung nodule. No routine followup is recommended for low-risk patients. If patient is high risk, a followup CT examination in 12 months is recommended - Repeat Head CT (10/11) --> Stable appearance of the right-sided SDH, mild mass effect and midline shift are present, not significantly changed. - Case d/w Dr. Gardner (10/12/16). He recommended against resuming anticoagulation at this time d/t SDH. Pt to have repeat CT brain in 1 week to reassess pt's SDH. - PT/ST/OT evaluation - start lisinopril 10mg BID to improve BP control - Request ST evaluation RE: swallow eval & advance diet if possible, cognitive evaluation including speech - anticipate d/c to SNF in 1-2 days - Supportive care - DVT prophylaxis with SCDs in the setting of SDH (2) Stroke Status: Chronic Plan: - See above. (3) Subtherapeutic anticoagulation Status: Acute Plan: - See above. (4) History of lupus Status: Chronic (5) Hypothyroidism Status: Chronic Plan: - Cont. home meds (6) Depression Status: Chronic (7) Transplanted liver Status: Chronic Plan: - Pt is on Prograf 6mg po BID - Check Tacrolimus level Yonny Amor DO Oct 13, 2016 14:01
--- NOTE | 2016-10-13 15:35 | HHI.NSPN ---
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 The patient has residual right hemiparesis and aphasia. She he was noted to have some altered mental status changes while at [facility] and brought over to [place] for evaluation. Currently, according to family members, she is back to her baseline status as far as her mental status and aphasia are concerned. She is not complaining of any headache or nausea. Workup in the emergency room included CT scan of the brain which shows a small amount of acute subdural blood in the right posterior frontal parietal region measuring approximately 6 mm in greatest thickness. It is only several cm in length. There does appear to be some fullness of the right hemisphere and midline is shifted over approximately 3-mm; however, there is significant loss of volume on the left from previous infarct to the left hemisphere. The patient is currently on Coumadin anticoagulation and on admission her INR was 1.7. 10/10: stable neuro exam, most recent INR was 1.4 yesterday 10/11: neuro checks stable overnight. f/u CT Head this morning completed. 10/12: doing well, stable neuro checks overnight. 10/13: transferred out of unit, stable neurological examination. (Yvette Cantrell) Labs, Micro, & Vital Signs Results Date Time Temp Pulse Resp B/P Pulse Ox O2 Delivery O2 Flow Rate FiO2 10/13/16 12:00 97.8 73 17 156/87 98 10/13/16 08:00 97.8 67 17 157/87 98 10/13/16 04:00 97.3 72 18 129/78 100 10/13/16 00:00 97.1 79 20 140/74 96 10/12/16 20:00 97.7 85 18 144/67 95 10/12/16 16:44 98.3 72 20 142/81 97 10/12/16 16:00 71 10/12/16 16:00 98.3 73 12 148/83 98 10/13/16 06:59 Intake Total 1241 ml Output Total 1400 ml Balance -159 ml Constitutional Vital Signs Date Time Temp Pulse Resp B/P Pulse Ox O2 Delivery O2 Flow Rate FiO2 10/13/16 12:00 97.8 73 17 156/87 98 10/13/16 08:00 97.8 67 17 157/87 98 10/13/16 04:00 97.3 72 18 129/78 100 10/13/16 00:00 97.1 79 20 140/74 96 10/12/16 20:00 97.7 85 18 144/67 95 10/12/16 16:44 98.3 72 20 142/81 97 10/12/16 16:00 71 10/12/16 16:00 98.3 73 12 148/83 98 10/13/16 06:59 Intake Total 1241 ml Output Total 1400 ml Balance -159 ml (Yvette Cantrell) Review of Systems/Exam Exam Ms. Alaniz is awake. aphasic, attempting to converse. Cranial nerve examination: pupils 4 mm round b/l. Right facial weakness. Neck is soft and supple. Motor: moves left side and right lower extremity off the bed, right upper plegia (Yvette Cantrell) Medications Current Medications Current Medications Medications (Trade) Dose Ordered Sig/Nubia Route PRN Reason Start Time Stop Time Status Last Admin Dose Admin Alprazolam (Xanax) 0.5 mg TID PRN PO ANXIETY 10/09/16 23:30 10/11/16 14:44 Atorvastatin Calcium (Lipitor) 80 mg HS PO 10/10/16 21:00 10/13/16 02:58 Cyclobenzaprine HCl (Flexeril) 5 mg Q8H PRN PO MUSCLE SPASM 10/09/16 23:30 10/11/16 14:44 Ferrous Sulfate (Ferrous Sulfate) 325 mg BID@ PO 10/10/16 12:00 10/13/16 10:35 Fluoxetine HCl (PROzac) 10 mg DAILY PO 10/10/16 09:00 10/13/16 08:15 Gabapentin (Neurontin) 900 mg Q8HR PO 10/10/16 06:00 10/13/16 14:27 Levothyroxine Sodium (Synthroid) 100 mcg DAILY@00 PO 10/10/16 06:00 10/13/16 05:45 Oxycodone HCl (Roxicodone) 10 mg Q4H PRN PO PAIN SCALE 1 TO 10 10/09/16 23:30 10/13/16 11:59 Tacrolimus (Prograf) 1 mg BID PO 10/10/16 09:00 10/12/16 22:12 Tacrolimus (Prograf) 5 mg BID PO 10/10/16 09:00 10/12/16 22:12 Sodium Chloride (NS Flush) 2 ml UNSCH PRN .XX FLUSH AFTER USING IV ACCESS 10/10/16 03:00 Sodium Chloride (NS Flush) 2 ml BID .XX 10/10/16 09:00 10/12/16 21:31 Acetaminophen (Tylenol) 650 mg Q6H PRN PO PAIN 1-10 AND/OR FEVER >101F 10/10/16 03:00 Hydromorphone HCl (Dilaudid Pf Inj) 1 mg Q4H PRN IV PAIN SCALE 6 TO 10 10/10/16 03:00 10/13/16 14:27 Famotidine (Pepcid Inj) 20 mg Q12HR IV PUSH 10/10/16 09:00 10/13/16 08:15 Lorazepam (Ativan Inj) 1 mg Q1H PRN IV Agitation/Sedation 10/10/16 03:00 Ondansetron HCl (Zofran Inj) 4 mg Q6H PRN IV NAUSEA OR VOMITING 10/10/16 03:00 10/12/16 16:03 Metoclopramide HCl (Reglan Inj) 10 mg Q6H PRN IV NAUSEA OR VOMITING 10/10/16 03:00 10/12/16 13:42 Miscellaneous Information 1 Q361D XX 10/10/16 03:00 Chlorhexidine Gluconate (Chlorhexidine 2% Cloth) 3 pack Taper DAILY@04 TOP 10/10/16 04:00 10/06/17 03:59 10/12/16 04:42 Chlorhexidine Gluconate (Chlorhexidine 2% Cloth) 3 pack UNSCH PRN TOP HYGIENIC CARE 10/10/16 03:00 Senna/Docusate Sodium (Brittney-Colace) 1 tab BID PO 10/10/16 09:00 10/12/16 21:31 Magnesium Hydroxide (Milk Of Magnesia Liq) 30 ml Q12H PRN PO MILD - MODERATE CONSTIPATION 10/10/16 03:00 Sennosides (Senokot) 17.2 mg Q12H PRN PO MODERATE - SEVERE CONSTIPATION 10/10/16 03:00 Bisacodyl (Dulcolax Supp) 10 mg DAILY PRN RECTAL SEVERE CONSITIPATION 10/10/16 03:00 Lactulose (Lactulose Liq) 30 ml DAILY PRN PO SEVERE CONSITIPATION 10/10/16 03:00 Enalaprilat (Vasotec Inj) 1.25 mg Q6H PRN IV PUSH SBP>160, DBP>90 10/12/16 18:00 Lisinopril (Prinivil) 10 mg Q12HR PO 10/13/16 21:00 (Yvette Cantrell) Medical Decision Making MDM Remarks 41 y/o female with history of multiple CVA, residual aphasia and right upper extremity plegia, right lower paresis presented for AMS, anticoagulated on Coumadin, INR of 1.7 on arrival, tx with K-Centra CT Head on arrival shows right SDH with 3 mm midline shift, stable ICH and midline shift on follow up CT Head 10/11/16 stable neurological exam (Yvette Cantrell) Plan Plan Remarks cont medical mgt, stable neuro exam, clear discharge to rehab from N[facility] standpoint, (Yvette Cantrell) Attending Statement The exam, history, and the medical decision-making described in the above note were completed with the assistance of the mid-level provider. I reviewed and agree with the findings presented. I attest that I had a [id number] encounter with the patient on the same day, and personally performed and documented my assessment and findings in the medical record. (Jimmy Rhoades MD) Yvette Cantrell Oct 13, 2016 15:35 Jimmy Rhoades MD Oct 16, 2016 21:53
[2016-10-13 16:00] VITALS: BP 153/87; PULSE 77; RESP 17; TEMP 98.2; O2SAT 98
--- NOTE | 2016-10-13 17:55 | HHI.PR ---
Review/Management Diagnosis subdural hematoma- Plan CT brain to follow up on subdural hematoma Diagnosis/Plan: Subjective Subjective Comments Pt relates some difficulty with speech Active Medications Current Medications Medications (Trade) Dose Ordered Sig/Nubia Route Start Time Stop Time Status Last Admin (Xanax) 0.5 mg TID PRN PO 10/09/16 23:30 10/11/16 14:44 (Lipitor) 80 mg HS PO 10/10/16 21:00 10/13/16 02:58 (Flexeril) 5 mg Q8H PRN PO 10/09/16 23:30 10/11/16 14:44 (Ferrous Sulfate) 325 mg BID@17 PO 10/10/16 12:00 10/13/16 16:15 (PROzac) 10 mg DAILY PO 10/10/16 09:00 10/13/16 08:15 (Neurontin) 900 mg Q8HR PO 10/10/16 06:00 10/13/16 14:27 (Synthroid) 100 mcg DAILY@0600 PO 10/10/16 06:00 10/13/16 05:45 (Roxicodone) 10 mg Q4H PRN PO 10/09/16 23:30 10/13/16 16:15 (Prograf) 1 mg BID PO 10/10/16 09:00 10/12/16 22:12 (Prograf) 5 mg BID PO 10/10/16 09:00 10/12/16 22:12 (NS Flush) 2 ml UNSCH PRN .XX 10/10/16 03:00 (NS Flush) 2 ml BID .XX 10/10/16 09:00 10/12/16 21:31 (Tylenol) 650 mg Q6H PRN PO 10/10/16 03:00 (Dilaudid Pf Inj) 1 mg Q4H PRN IV 10/10/16 03:00 10/13/16 14:27 (Pepcid Inj) 20 mg Q12HR IV PUSH 10/10/16 09:00 10/13/16 08:15 (Ativan Inj) 1 mg Q1H PRN IV 10/10/16 03:00 (Zofran Inj) 4 mg Q6H PRN IV 10/10/16 03:00 10/12/16 16:03 (Reglan Inj) 10 mg Q6H PRN IV 10/10/16 03:00 10/12/16 13:42 Miscellaneous Information 1 Q361D XX 10/10/16 03:00 (Chlorhexidine 2% Cloth) 3 pack Taper DAILY@04 TOP 10/10/16 04:00 10/06/17 03:59 10/12/16 04:42 (Chlorhexidine 2% Cloth) 3 pack UNSCH PRN TOP 10/10/16 03:00 (Brittney-Colace) 1 tab BID PO 10/10/16 09:00 10/12/16 21:31 (Milk Of Magnesia Liq) 30 ml Q12H PRN PO 10/10/16 03:00 (Senokot) 17.2 mg Q12H PRN PO 10/10/16 03:00 (Dulcolax Supp) 10 mg DAILY PRN RECTAL 10/10/16 03:00 (Lactulose Liq) 30 ml DAILY PRN PO 10/10/16 03:00 (Vasotec Inj) 1.25 mg Q6H PRN IV PUSH 10/12/16 18:00 (Prinivil) 10 mg Q12HR PO 10/13/16 21:00 Allergies Allergies Coded Allergies Sulfa (Verified Adverse Reaction, Mild, NAUSEA, 10/08/16) Exam I&O / VS 10/12/16 10/12/16 10/13/16 15:00 23:00 07:00 Intake Total 1054 ml 187 ml Output Total 550 ml 850 ml Balance 504 ml 187 ml -850 ml Intake Oral 400 ml IV Total 654 ml 187 ml Output Urine Total 550 ml 850 ml # Bowel Movements 1 1 Vital Signs Date Time Temp Pulse Resp B/P Pulse Ox O2 Delivery O2 Flow Rate FiO2 10/13/16 16:00 98.2 77 17 153/87 98 10/13/16 12:00 97.8 73 17 156/87 98 10/13/16 08:00 97.8 67 17 157/87 98 10/13/16 04:00 97.3 72 18 129/78 100 10/13/16 00:00 97.1 79 20 140/74 96 10/12/16 20:00 97.7 85 18 144/67 95 Respiratory: Lungs CTA, Non-labored respirations, BS equal, Symmetrical expansion Cardiology: Normal rate, Normal peripheral perfusion, Regular Rhythm Musculoskeletal: Tenderness, Swelling, Other Exam Comments alert speech dysarthric CN intact Motor 1/5 RUE and RLE/ 5/5 LUE and LLE Objective Micro and Labs Laboratory Tests Test 10/13/16 08:12 Tacrolimus (Prograf) Level 8.7 David Gardner PhD MD Oct 13, 2016 17:55
--- NOTE | 2016-10-13 19:29 | RADRPT ---
EXAM DATE/TIME: 10/13/2016 18:40 [place] COMPARISON: CT BRAIN W/O CONTRAST, October 11, 2016, 5:42. INDICATIONS : Follow up for subdural hematoma. RADIATION DOSE: 45.25 CTDIvol (mGy) MEDICAL HISTORY : Stroke. Cardiovascular disease Hypertension.Renal disease, Liver disease, Lupus. SURGICAL HISTORY : Appendectomy. Tubal ligation. ENCOUNTER: Subsequent ACUITY: 4 - 6 days PAIN SCALE: 0/10 LOCATION: cranial TECHNIQUE: Multiple contiguous axial images were obtained of the head. Using automated exposure control and adj ustment of the mA and/or kV according to patient size, radiation dose was kept as low as reasonably a chievable to obtain optimal diagnostic quality images. DICOM format image data is available electro nically for review and comparison. FINDINGS: CEREBRUM: Stable appearance and size of the subdural hyperdense blood, measuring up to 6 mm in thickness in the frontoparietal region. In the posterior parietal region, a focal 6 mm collection is also stable. T here is stable less than 2 mm midline shift towards the left. Prominent area of encephalomalacia in the high convexity frontal through occipital region is stable from prior. No new findings. POSTERIOR FOSSA: The cerebellum and brainstem are intact. The 4th ventricle is midline. The cerebellopontine angle i s unremarkable. EXTRACRANIAL: The visualized portion of the orbits is intact. SKULL: The calvaria is intact. No evidence of skull fracture. CONCLUSION: 1. Stable size and configuration to the 6 mm right subdural hematoma. 2. Stable left hemispheric encephalomalacia. 3. No new findings. Janak Cabezas MD on October 13, 2016 at 19:23 Board Certified Radiologist. This report was verified electronically.
[2016-10-13 20:00] VITALS: BP 152/79; PULSE 80; RESP 18; TEMP 97.8; O2SAT 97
[2016-10-13] MEDS: TACROLIMUS 1 MG CAP PO SCH (20:47)
[2016-10-13] MEDS: TACROLIMUS 5 MG CAP PO SCH (20:48)
[2016-10-13] MEDS: LISINOPRIL 10 MG TAB PO SCH (20:48)
[2016-10-13] MEDS: DOCUSATE SODIUM 50 MG/SENNA 8.6 MG TAB PO SCH (20:53)
[2016-10-14] VITALS: BP 130/77; PULSE 69; RESP 18; TEMP 98.2; O2SAT 99
[2016-10-14 04:00] VITALS: BP 129/72; PULSE 65; RESP 18; TEMP 98.4; O2SAT 99
[2016-10-14] MEDS: CHLORHEXIDINE GLUCONATE 2 % 1 PACK (2 CLOTHS) TOP SCH (04:00)
[2016-10-14] MEDS: HYDROmorphone HCL PF 1 MG/ML VIAL IV PRN ×3 (04:32→14:11)
[2016-10-14] MEDS: GABAPENTIN 300 MG CAP PO SCH ×2 (06:15→14:10)
[2016-10-14] MEDS: LEVOTHYROXINE SODIUM 100 MCG TAB PO SCH (06:15)
[2016-10-14 08:00] VITALS: BP 142/85; PULSE 71; RESP 16; TEMP 98.4; O2SAT 99
[2016-10-14] MEDS: LISINOPRIL 10 MG TAB PO SCH (08:41)
[2016-10-14] MEDS: DOCUSATE SODIUM 50 MG/SENNA 8.6 MG TAB PO SCH (08:41)
[2016-10-14] MEDS: FAMOTIDINE 20 MG/2 ML VIAL IV PUSH SCH (08:41)
[2016-10-14] MEDS: FLUoxetine HCL 10 MG CAP PO SCH (08:41)
[2016-10-14] MEDS: TACROLIMUS 1 MG CAP PO SCH (08:41)
[2016-10-14] MEDS: TACROLIMUS 5 MG CAP PO SCH (08:41)
[2016-10-14] MEDS: SODIUM CHLORIDE 0.9% FLUSH 10 ML FLUSH SCH (08:41)
--- NOTE | 2016-10-14 10:59 | HHI.NSPN ---
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 The patient has residual right hemiparesis and aphasia. She he was noted to have some altered mental status changes while at [facility] and brought over to [place] for evaluation. Currently, according to family members, she is back to her baseline status as far as her mental status and aphasia are concerned. She is not complaining of any headache or nausea. Workup in the emergency room included CT scan of the brain which shows a small amount of acute subdural blood in the right posterior frontal parietal region measuring approximately 6 mm in greatest thickness. It is only several cm in length. There does appear to be some fullness of the right hemisphere and midline is shifted over approximately 3-mm; however, there is significant loss of volume on the left from previous infarct to the left hemisphere. The patient is currently on Coumadin anticoagulation and on admission her INR was 1.7. 10/10: stable neuro exam, most recent INR was 1.4 yesterday 10/11: neuro checks stable overnight. f/u CT Head this morning completed. 10/12: doing well, stable neuro checks overnight. 10/13: transferred out of unit, stable neurological examination. 10/14: appears more comfortable today, sitting up in chair eating breakfast. ( Yvette Cantrell) Labs, Micro, & Vital Signs Results Date Time Temp Pulse Resp B/P Pulse Ox O2 Delivery O2 Flow Rate FiO2 10/14/16 08:00 98.4 71 16 142/85 99 10/14/16 04:00 98.4 65 18 129/72 99 10/14/16 00:00 98.2 69 18 130/77 99 10/13/16 20:00 97.8 80 18 152/79 97 10/13/16 20:00 97.8 80 18 152/79 97 10/13/16 16:00 98.2 77 17 153/87 98 10/13/16 12:00 97.8 73 17 156/87 98 10/14/16 07:00 Intake Total 960 ml Output Total 2250 ml Balance -1290 ml Constitutional Vital Signs Date Time Temp Pulse Resp B/P Pulse Ox O2 Delivery O2 Flow Rate FiO2 10/14/16 08:00 98.4 71 16 142/85 99 10/14/16 04:00 98.4 65 18 129/72 99 10/14/16 00:00 98.2 69 18 130/77 99 10/13/16 20:00 97.8 80 18 152/79 97 10/13/16 20:00 97.8 80 18 152/79 97 10/13/16 16:00 98.2 77 17 153/87 98 10/13/16 12:00 97.8 73 17 156/87 98 10/14/16 07:00 Intake Total 960 ml Output Total 2250 ml Balance -1290 ml (Yvette Cantrell) Review of Systems/Exam Exam Ms. Alaniz is awake. aphasic, attempting to converse. Sitting up in chair eating breakfast. Appears comfortable and smiling today. Cranial nerve examination: pupils 4 mm round b/l. Right facial weakness. Motor: moves left side and right lower extremity. chronic right upper plegia (Yvette Cantrell) Medications Current Medications Current Medications Medications (Trade) Dose Ordered Sig/Nubia Route PRN Reason Start Time Stop Time Status Last Admin Dose Admin Alprazolam (Xanax) 0.5 mg TID PRN PO ANXIETY 10/09/16 23:30 10/11/16 14:44 Atorvastatin Calcium (Lipitor) 80 mg HS PO 10/10/16 21:00 10/13/16 20:47 Cyclobenzaprine HCl (Flexeril) 5 mg Q8H PRN PO MUSCLE SPASM 10/09/16 23:30 10/11/16 14:44 Ferrous Sulfate (Ferrous Sulfate) 325 mg BID@ PO 10/10/16 12:00 10/13/16 16:15 Fluoxetine HCl (PROzac) 10 mg DAILY PO 10/10/16 09:00 10/14/16 08:41 Gabapentin (Neurontin) 900 mg Q8HR PO 10/10/16 06:00 10/14/16 06:15 Levothyroxine Sodium (Synthroid) 100 mcg DAILY@0600 PO 10/10/16 06:00 10/14/16 06:15 Oxycodone HCl (Roxicodone) 10 mg Q4H PRN PO PAIN SCALE 1 TO 10 10/09/16 23:30 10/14/16 08:41 Tacrolimus (Prograf) 1 mg BID PO 10/10/16 09:00 10/14/16 08:41 Tacrolimus (Prograf) 5 mg BID PO 10/10/16 09:00 10/14/16 08:41 Sodium Chloride (NS Flush) 2 ml UNSCH PRN .XX FLUSH AFTER USING IV ACCESS 10/10/16 03:00 Sodium Chloride (NS Flush) 2 ml BID .XX 10/10/16 09:00 10/14/16 08:41 Acetaminophen (Tylenol) 650 mg Q6H PRN PO PAIN 1-10 AND/OR FEVER >101F 10/10/16 03:00 Hydromorphone HCl (Dilaudid Pf Inj) 1 mg Q4H PRN IV PAIN SCALE 6 TO 10 10/10/16 03:00 10/14/16 10:16 Famotidine (Pepcid Inj) 20 mg Q12HR IV PUSH 10/10/16 09:00 10/14/16 08:41 Lorazepam (Ativan Inj) 1 mg Q1H PRN IV Agitation/Sedation 10/10/16 03:00 Ondansetron HCl (Zofran Inj) 4 mg Q6H PRN IV NAUSEA OR VOMITING 10/10/16 03:00 10/12/16 16:03 Metoclopramide HCl (Reglan Inj) 10 mg Q6H PRN IV NAUSEA OR VOMITING 10/10/16 03:00 10/12/16 13:42 Miscellaneous Information 1 Q361D XX 10/10/16 03:00 Chlorhexidine Gluconate (Chlorhexidine 2% Cloth) 3 pack Taper DAILY@04 TOP 10/10/16 04:00 10/06/17 03:59 10/12/16 04:42 Chlorhexidine Gluconate (Chlorhexidine 2% Cloth) 3 pack UNSCH PRN TOP HYGIENIC CARE 10/10/16 03:00 Senna/Docusate Sodium (Brittney-Colace) 1 tab BID PO 10/10/16 09:00 10/14/16 08:41 Magnesium Hydroxide (Milk Of Magnesia Liq) 30 ml Q12H PRN PO MILD - MODERATE CONSTIPATION 10/10/16 03:00 Sennosides (Senokot) 17.2 mg Q12H PRN PO MODERATE - SEVERE CONSTIPATION 10/10/16 03:00 Bisacodyl (Dulcolax Supp) 10 mg DAILY PRN RECTAL SEVERE CONSITIPATION 10/10/16 03:00 Lactulose (Lactulose Liq) 30 ml DAILY PRN PO SEVERE CONSITIPATION 10/10/16 03:00 Enalaprilat (Vasotec Inj) 1.25 mg Q6H PRN IV PUSH SBP>160, DBP>90 10/12/16 18:00 Lisinopril (Prinivil) 10 mg Q12HR PO 10/13/16 21:00 10/14/16 08:41 (Yvette Cantrell) Medical Decision Making MDM Remarks 41 y/o female with history of multiple CVA, residual aphasia and right upper extremity plegia, right lower paresis presented for AMS, anticoagulated on Coumadin, INR of 1.7 on arrival, tx with K-Centra CT Head on arrival shows right SDH with 3 mm midline shift, stable ICH and midline shift on follow up CT Head 10/11/16 stable neurological exam (Yvette Cantrell) Plan Plan Remarks cont medical mgt, stable neuro exam, cont therapy and rehab efforts clear discharge to rehab from [facility] standpoint, (Yvette Cantrell) Attending Statement The exam, history, and the medical decision-making described in the above note were completed with the assistance of the mid-level provider. I reviewed and agree with the findings presented. I attest that I had a [id number] encounter with the patient on the same day, and personally performed and documented my assessment and findings in the medical record. (Jimmy Rhoades MD) Yvette Cantrell Oct 14, 2016 10:58 Jimmy Rhoades MD Oct 16, 2016 22:03
[2016-10-14 12:00] VITALS: BP 110/69; PULSE 79; RESP 16; TEMP 98.5; O2SAT 95
[2016-10-14] MEDS: FERROUS SULFATE 325 MG (65 MG ELEMENTAL IRON) TAB PO SCH ×2 (12:01→17:00)
--- NOTE | 2016-10-14 13:55 | HHI.DS ---
Discharge Summary Admission Date Oct 09, 2016 at 23:10 Discharge Date: Oct 14, 2016 Admitting Diagnosis Subdural hematoma on coumadin (1) Subdural hematoma, acute Diagnosis: Principal (2) Stroke Diagnosis: Secondary (3) Subtherapeutic anticoagulation Diagnosis: Secondary (4) History of lupus Diagnosis: Secondary (5) Hypothyroidism Diagnosis: Secondary (6) Depression Diagnosis: Secondary (7) Transplanted liver Diagnosis: Secondary Consultants Dr. Jimmy Rhoades, Neurosurgery Dr. David Gardner, Neurology Dr. Vee Cat, Hematology Brief History Ms. Chávez is a 40-year-old female who has a history of strokes in the past which she states has cause right-sided weakness and difficulty with her speech who was admitted last night as a stroke alert when she developed a left-sided facial droop. She had the residual right-sided weakness which is known from a previous stroke. She was found on a CT scan to have a subdural hematoma involving the right side measuring 6-mm. She has been seen by Neurosurgery. This is being watched at the present time. There was a 3-mm midline shift. CBC/BMP: 10/11/16 0325 10/11/16 0325 PE at Discharge General: NAD, Awake and alert Chest:CTA Cardiac: Regular Abd: +BS, soft ND/NT Ext: Right sided weakness Neuro: Expressive aphasia, right sided weakness Hospital Course (1) Subdural hematoma, acute Status: Acute Plan: - Comgmt with Neurology and Hematology - Pt is a 41 y/o female with RA, lupus, s/p of liver transplant in 2013, and recent hx of CVA in June 2016 with aphasia and right sided weakness but no clear etiology was determined. In July 2016 she suffered another stroke with similar symptoms and was discharged on Eliquis. Pt reportedly had a loop recorded implanted by Dr. Montero. She was admitted to [facility] in August 2016 after she had a 3rd stroke with worsening aphasia and right sided weakness. She was put on Lovenox and ASA as she failed Eliquis. She was transferred to [place] for further treatment. She was diagnosed with a Left cryptogenic cerebral infarction of watershed distribution. There was concern for hypercoagulable state due to RA and lupus. She had LP, suggestive of ?vasculitis. Pt was a sent to [facility] for comprehensive rehabilitation from September 03, 2016 to September 23, 2016 and was then discharged to SNF on Coumadin. - Pt was sent to [facility] on 10/08/16 for AMS and subtherapeutic INR, 1.7 at admission. - Head CT (10/09) --> Right sided SDH measuring up to 6mm and associated 3mm midline shift towards the left and old left sided infarction involving the parietal-occipital and high convexity parietal region. - Pt was admitted to [facility] and given Kcentra - Neurosurgery was consulted and nonoperative management was recommended - CTA Head (10/10) --> No evidence for aneurysm or AV malformation as questioned. Occlusion of the left ICA terminus with reconstitution of the middle and anterior cerebral arteries through the anterior commuting artery. Watershed territory left parieto-occipital and high convexity posterior parietal encephalomalacia consistent with chronic etiology. Re- demonstration of 5 mm right-sided subdural hematoma and associated subtle 2 mm [id number] subfalcine shift. - CTA neck (10/10) -->Abnormal diffusely small caliber left internal carotid artery with apparent occlusion of the carotid terminus. Differential considerations include vasculitis versus flow related caliber change. Clinical correlation is recommended. 5 mm solid left upper lobe lung nodule. No routine followup is recommended for low-risk patients. If patient is high risk, a followup CT examination in 12 months is recommended - Repeat Head CT (10/11) --> Stable appearance of the right-sided SDH, mild mass effect and midline shift are present, not significantly changed. - Case d/w Dr. Gardner (10/12/16). He recommended against resuming anticoagulation at this time d/t SDH. Pt to have repeat CT brain in 1 week to reassess pt's SDH. - Pt will need continued PT/ST/OT at SNF - continue lisinopril 10mg BID to improve BP control - see discharge orders - f/u with Dr. Gardner in 3 weeks - f/u with PCP, Dr. Thomas, 1 week - Pt/POA refused discharge to SNF - arrangement made for [facility] and home PT (2) Stroke Status: Chronic Plan: - See above. (3) Subtherapeutic anticoagulation Status: Acute Plan: - See above. (4) History of lupus Status: Chronic (5) Hypothyroidism Status: Chronic Plan: - Cont. home meds (6) Depression Status: Chronic (7) Transplanted liver Status: Chronic Plan: - Pt is on Prograf 6mg po BID - Check Tacrolimus level Pt Condition on Discharge: Stable Discharge Disposition: Discharge to SNF Discharge Instructions DIET: Follow Instructions for: Heart Healthy Diet Activities you can perform: Weight Bearing as Jane Activities to Avoid: Strenuous Activity Follow up Referrals: Neurology - 2 Weeks with David Gardner PhD MD PCP Follow-up - [address] Beata Morrison New Medications: Walker/Folding Cole (Walker/Folding Cole) 1 Mis Mis 1 EA .ROUTE DIRECTED #1 EA Wheelchair (Wheelchair) 1 Mis Mis 1 EA .ROUTE DIRECTED #1 Ref 0 EA Alprazolam (Xanax) 0.5 Mg Tab 0.5 MG PO TID PRN ANXIETY #30 Ref 0 TAB Lisinopril (Lisinopril) 10 Mg Tab 10 MG PO Q12HR htn #31 TAB Oxycodone (Oxycodone) 5 Mg Tab 10 MG PO q4h PRN pain #30 Ref 0 TAB Sennosides-Docusate Sodium (Senna Plus 8.6-50 mg) 1 Tab Tab 1 TAB PO BID constipation prevention #62 TAB Continued Medications: Aspirin DR (Aspirin EC) 81 Mg Tabdr 81 MG PO DAILY #30 Ref 0 TAB Atorvastatin (Lipitor) 80 Mg Tab 80 MG PO HS Cholesterol Management #30 Ref 0 TAB Cyclobenzaprine (Flexeril) 10 Mg Tab 5 MG PO Q8H PRN MUSCLE SPASM #90 TAB Enoxaparin Inj (Lovenox Inj) 100 Mg/Ml Syr 100 MG SQ BID Bridge with coumadin Blood Clot Prevention #10 Ref 0 SYRINGE Enoxaparin Inj (Enoxaparin Inj) 100 Mg/Ml Syr 100 MG SQ BID Blood Clot Prevention Ref 0 SYRINGE Ferrous Sulfate (Ferosul) 325 Mg Tablet 325 MG PO BID@12,17 #60 Fluoxetine (Prozac) 10 Mg Cap 10 MG PO DAILY #30 Ref 0 CAP Gabapentin (Neurontin) 300 Mg Cap 900 MG PO Q8HR Days 30 CAP Levothyroxine (Levothyroxine) 100 Mcg Tab 100 MCG PO DAILY Thyroid #30 Ref 0 TAB Magnesium Oxide (Magnesium Oxide) 400 Mg Tab 400 MG PO DAILY @ 1800 Nutritional Supplement Ref 0 TAB Sennosides-Docusate Sodium (Senna Plus 8.6-50 mg) 1 Tab Tab 1 TAB PO BID #60 TAB Tacrolimus (Prograf) 1 Mg Cap 1 MG PO BID Prevent Transplant Reject #60 Ref 0 CAP Tacrolimus (Prograf) 5 Mg Cap 5 MG PO BID Prevent Transplant Reject #60 Ref 0 CAP Warfarin (Coumadin) 5 Mg Tab 5 MG PO DAILY@16 #30 TAB Warfarin (Warfarin) 2 Mg Tab 2 MG PO DAILY@1600 Blood Clot Prevention #30 Ref 0 TAB Yonny Amor DO Oct 14, 2016 13:55
[2016-10-14] MEDS ORDERED: ALPR.5 PO (14:08)
[2016-10-14] MEDS ORDERED: OXYC-392 PO (14:08)
[2016-10-14] MEDS ORDERED: SENN1TAB PO (14:10)
[2016-10-14] MEDS ORDERED: LISI10TA3 PO (14:10)
--- NOTE | 2016-10-14 14:51 | HHI.FF ---
Face to Face Verification Diagnosis: (1) Subdural hematoma, acute (2) Transplanted liver (3) Stroke (4) History of lupus (5) Hypothyroidism (6) Depression (7) Anemia (8) Hx of rheumatoid arthritis (9) Aphasia (10) Impaired mobility and activities of daily living Physical Therapy Order: Evaluate and Treat, Improve ambulation, Strength and gait training Occupational Therapy Order: Evaluate and Treat, Improve ADL, Gross motor coordination, Fine motor coordination Speech Therapy Order: To Improve: Speech and communication skills, Cognitive skills, Swallowing Home Health Nursing Order: Medical education Signs/symptoms of disease process Medication education-adverse effect Nursing assessment with vital signs Home Health Aide Order: To Assist In: Bathing and personal care Instructional Leader Order: To Evaluate: Living conditions/environment, Support services Order: To Provide: Long range planning, Community services I have seen patient Michelle Alaniz on 10/14/16. My clinical findings support the need for the requested home health care services because: Ltd mobility - disease progression Deconditioned w/ increased weakness Med compliance is questionable Limited ability to care for self Need for psychosocial assistance Impaired cognition/judgement I certify that my clinical findings support that this patient is homebound because: Impaired cognitive ability/safety Unsteady gait/balance Unsafe to leave home unassisted Need for psychosocial assistance Osv-[id number]-vtsbfyzk bed/chair Unable to use public transportation Yonny Amor DO Oct 14, 2016 14:51
--- NOTE | 2016-10-14 15:05 | HHI.DCPOC ---
Discharge Care Plan Diagnosis: (1) Subdural hematoma, acute (2) Stroke Goals to Promote Your Health - Patient has CT Brain ordered to be performed at [facility] on Monday , 10/21/16, @ 12:15PM - She will need to followup with Dr. Gardner in 2 weeks to review the results of the Head CT - She will need to followup with her PCP, Dr. Morrison, in 1 week, call for appt. Directions to Meet Your Goals Take your medications as prescribed Follow your dietary instruction Follow activity as directed Keep your appointments as scheduled Take your immunizations and boosters as scheduled If your symptoms worsen call your PCP, if no PCP go to Urgent Care Center or Emergency Room Smoking is Dangerous to Your Health. Avoid second hand smoke Call the 24-hour hour crisis hotline for domestic abuse at Sandra Bishop Oct 14, 2016 15:05 Yonny Amor DO Oct 15, 2016 23:41
[2016-10-14] MEDS ORDERED: WHEEMIS3 (15:06)
[2016-10-14] MEDS ORDERED: WALKER/FOLDING1 MIS (15:06)
[2016-10-14 16:00] VITALS: BP 135/80; PULSE 80; RESP 17; TEMP 98.7; O2SAT 99
== END 2016-10-14 18:21 | disposition home health service (06) | DRG 65 ==
LOC: NEPE 22:06 → NEDA 23:10 → N03A 10-10 01:56 → N03B 10-11 19:46 → N05A 10-12 16:17
PROVIDERS: ADMIT Hospitalist; ATTEND Hospitalist
PROC: 30283B1 Transfusion of Nonautologous 4-Factor Prothrombin Complex Concentrate into Vein, Percutaneous Approach (ICD-10-PCS; principal; 2016-10-09)
DX: I62.00 Nontraumatic subdural hemorrhage, unspecified (principal); Z94.4 Liver transplant status; M32.9 Systemic lupus erythematosus, unspecified; Z79.01 Long term (current) use of anticoagulants; I69.351 Hemiplegia and hemiparesis following cerebral infarction affecting right dominant side; E78.5 Hyperlipidemia, unspecified; D64.9 Anemia, unspecified; F32.9 Major depressive disorder, single episode, unspecified; I69.320 Aphasia following cerebral infarction; I12.9 Hypertensive chronic kidney disease with stage 1 through stage 4 chronic kidney disease, or unspecified chronic kidney disease; N18.9 Chronic kidney disease, unspecified; E03.9 Hypothyroidism, unspecified; F41.9 Anxiety disorder, unspecified; M06.9 Rheumatoid arthritis, unspecified
CPT/HCPCS: 70450; 70496; 70498; 80053; 80197; 80307; 81001; 82435; 82550; 82565; 82947; 82948; 83735; 84100; 84132; 84295; 84484; 84520; 84702; 85025; 85384; 85610; 85730; 86850; 86900; 86901; 87641; 93005; C9132; J0360; J1170; J2405; J2765; J7030; J7507; Q9967

== ENCOUNTER 2016-11-06 17:00 | Emergency (ER) | payer OTHER ==
[~2016-11-06] VITALS: Ht 172.7 cm; Wt 103.0 kg
[~2016-11-06 17:00] MED LIST changes: +ENOX100I SQ; +LISI10TA3 PO; +WALKER/FOLDING1 MIS
[2016-11-06 17:05] VITALS: BP 113/71; PULSE 82; RESP 20; TEMP 98.5; O2SAT 98
[2016-11-06] MEDS ORDERED: SODIUM CHLOR 0.9% 1000 ML INJ 1,000 ML IV ONE (17:27)
[2016-11-06] MEDS ORDERED: diphenhydrAMINE HCL 50 MG/ML VIAL IVP ONE (17:30)
[2016-11-06] MEDS ORDERED: PROCHLORPERAZINE INJ 10 MG/2 ML VIAL IVP ONE (17:30)
[2016-11-06] MEDS ORDERED: SODIUM CHLORIDE 0.9% FLUSH 10 ML FLUSH IVF PRN (17:30)
[2016-11-06] MEDS ORDERED: MORPHINE SULFATE 4 MG/ML INJ IV PUSH ONE ×2 (17:30→18:45)
--- NOTE | 2016-11-06 17:36 | PD ---
HPI Chief Complaint: Neuro Symptoms/ Deficits Time Seen by Provider: 17:14 Travel History International Travel<30 days: No Contact w/Intl Traveler<30days: No Traveled to known affect area: No History of Present Illness HPI The patient is a 41-year-old female who presents to the emergency department for headache. The patient developed a headache at approximately 2 AM , gradual onset, left-sided headache. The patient does have an unfortunate history of rheumatoid arthritis and lupus with several previous CVA that was initially treated with aspirin, then Eliquis, and then Coumadin. Unfortunately the patient suffered from a subdural hemorrhage with subsequent shift and was hospitalized in September and October. The patient was recently discharged home on October 14, was with a family member and is scheduled to get outpatient physical therapy. The patient's neurologist is Dr. Gray, primary physician is Dr. Morrison, neurosurgeon is Dr. Rhoades, and she has an outpatient appointment with a new shank paperer, Dr. Sims. The patient is currently on pain medications, lisinopril, and atorvastatin. 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 The patient denies any acute focal changes, does have a history of right sided deficits with right sided facial droop, hemiparesis of the right arm, and minimal movement of the right lower extremity. The patient is able to help assist with immobilization shift from a chair to wheelchair, but is not able to ambulate. PFSH Past Medical History Hx Anticoagulant Therapy: Yes (WARFARIN) Anemia: Yes Arthritis: No Asthma: No Autoimmune Disease: Yes (LUPUS) Anxiety: Yes Depression: No Cancer: No Cardiovascular Problems: Yes High Cholesterol: Yes Chemotherapy: No Chest Pain: No Congestive Heart Failure: No COPD: No Cerebrovascular Accident: Yes (2017 x 3 ) Diabetes: No Diminished Hearing: No Endocrine: Yes (THYROIDECTOMY) GERD: No Genitourinary: No Headaches: Yes Hiatal Hernia: No Hypertension: Yes Immune Disorder: No Kidney Stones: Yes Musculoskeletal: Yes (right side flacid) Neurologic: Yes Psychiatric: No Reproductive: No Respiratory: No Migraines: No Radiation Therapy: No Renal Failure: Yes Seizures: No Sickle Cell Disease: No Sleep Apnea: No Thyroid Disease: Yes Ulcer: No ?: Unknown Tubal Ligation: Yes Past Surgical History Abdominal Surgery: Yes Appendectomy: Yes Cardiac Surgery: Yes Ear Surgery: No Endocrine Surgery: Yes Eye Surgery: No Genitourinary Surgery: No Gynecologic Surgery: No Oral Surgery: Yes Pacemaker: No Thoracic Surgery: No Other Surgery: Yes (Thyroidectomy and Liver Transplant) Social History Alcohol Use: No Tobacco Use: No Substance Use: No Allergies-Medications (Allergen,Severity, Reaction): Coded Allergies: Sulfa (Sulfonamide Antibiotics) (Unverified Adverse Reaction, Mild, NAUSEA , 10/25/16) Reported Meds & Prescriptions Reported Meds & Active Scripts Active Xanax (Alprazolam) 0.5 Mg Tab 0.5 Mg PO TID PRN Ferosul (Ferrous Sulfate) 325 Mg Tablet 325 Mg PO BID@,17 Prograf (Tacrolimus) 5 Mg Cap 5 Mg PO BID Levothyroxine (Levothyroxine Sodium) 100 Mcg Tab 100 Mcg PO DAILY Prozac (Fluoxetine HCl) 10 Mg Cap 10 Mg PO DAILY Reported Oxycodone (Oxycodone HCl) 10 Mg Tab 10 Mg PO TID PRN Atorvastatin (Atorvastatin Calcium) 20 Mg Tab 20 Mg PO HS Lisinopril 2.5 Mg Tab 2.5 Mg PO DAILY Magnesium Oxide 400 Mg Tab 400 Mg PO DAILY @ 1800 Review of Systems Except as stated in HPI: all other systems reviewed are Neg HENT: Positive: Headaches, No: Neck Pain Cardiovascular: No: Chest Pain or Discomfort Respiratory: No: Shortness of Breath Gastrointestinal: No: Nausea, Vomiting, Abdominal Pain Musculoskeletal: Positive: Weakness (chronic right sided weakness) Neurologic: Positive: Focal Abnormalities (right sided focal deficits from previous CVA) Physical Exam Narrative GENERAL: Awake, alert, very pleasant 41-year-old female who appears her stated age and is in no acute respiratory distress. SKIN: Focused skin assessment warm/dry. HEAD: Atraumatic. Normocephalic. EYES: Pupils equal and round. 4 mm bilateral and reactive. ENT: No nasal bleeding or discharge. Mucous membranes pink and moist. NECK: Trachea midline. No JVD. CARDIOVASCULAR: Regular rate and rhythm. No murmur appreciated. RESPIRATORY: No accessory muscle use. Clear to auscultation. Breath sounds equal bilaterally. GASTROINTESTINAL: Abdomen soft, non-tender, nondistended. Hepatic and splenic margins not palpable. MUSCULOSKELETAL: Patient is unable to move her right upper extremity. Decreased range of motion with a right lower extremity with limited ability to flex the right hip and right knee. NEUROLOGICAL: Awake and alert. Right sided facial droop, mild dysarthria. Inability to move the right upper extremity and limited range of motion of the right lower extremity. Decreased sensation to the right arm and right leg when compared to the left. Follows simple commands. PSYCHIATRIC: Appropriate mood and affect; insight and judgment normal. Data Data Last Documented VS Vital Signs Date Time Temp Pulse Resp B/P (MAP) Pulse Ox O2 Delivery O2 Flow Rate FiO2 11/06/16 17:32 (85) Room Air 11/06/16 17:05 98.5 82 20 98 Orders Orders Complete Blood Count With Diff (11/06/16 17:27) Comprehensive Metabolic Panel (11/06/16 17:27) Prothrombin Time / Inr (Pt) (11/06/16 17:27) Act Partial Throm Time (Ptt) (11/06/16 17:27) Ct Brain W/O Iv Contrast(Rout) (11/06/16 17:27) Ecg Monitoring (11/06/16 17:27) Iv Access Insert/Monitor (11/06/16 17:27) Oximetry (11/06/16 17:27) Sodium Chloride 0.9% Flush (Ns Flush) (11/06/16 17:30) Prochlorperazine Inj (Compazine Inj) (11/06/16 17:30) Diphenhydramine Inj (Benadryl Inj) (11/06/16 17:30) Sodium Chlor 0.9% 1000 Ml Inj (Ns 1000 M (11/06/16 17:27) Morphine Inj (Morphine Inj) (11/06/16 17:30) Labs Laboratory Tests Test 11/06/16 17:30 White Blood Count 6.3 TH/MM3 Red Blood Count 3.94 MIL/MM3 Hemoglobin 11.4 GM/DL Hematocrit 34.9 % Mean Corpuscular Volume 88.5 FL Mean Corpuscular Hemoglobin 29.0 PG Mean Corpuscular Hemoglobin Concent 32.8 % Red Cell Distribution Width 18.1 % Platelet Count 176 TH/MM3 Mean Platelet Volume 9.3 FL Neutrophils (%) (Auto) 71.7 % Lymphocytes (%) (Auto) 17.7 % Monocytes (%) (Auto) 9.9 % Eosinophils (%) (Auto) 0.6 % Basophils (%) (Auto) 0.1 % Neutrophils # (Auto) 4.5 TH/MM3 Lymphocytes # (Auto) 1.1 TH/MM3 Monocytes # (Auto) 0.6 TH/MM3 Eosinophils # (Auto) 0.0 TH/MM3 Basophils # (Auto) 0.0 TH/MM3 CBC Comment DIFF FINAL Differential Comment Blood Urea Nitrogen 15 MG/DL Creatinine 0.89 MG/DL Random Glucose 110 MG/DL Total Protein 8.9 GM/DL Albumin 3.4 GM/DL Calcium Level 9.3 MG/DL Alkaline Phosphatase 85 U/L Aspartate Amino Transf (AST/SGOT) 29 U/L Alanine Aminotransferase (ALT/SGPT) 52 U/L Total Bilirubin 0.5 MG/DL Sodium Level 139 MEQ/L Potassium Level 4.1 MEQ/L Chloride Level 103 MEQ/L Carbon Dioxide Level 27.1 MEQ/L Anion Gap 9 MEQ/L Estimat Glomerular Filtration Rate 69 ML/MIN MDM Medical Decision Making Medical Screen Exam Complete: Yes Emergency Medical Condition: Yes Medical Record Reviewed: Yes Interpretation(s) Laboratory Tests Test 11/06/16 17:30 White Blood Count 6.3 TH/MM3 Red Blood Count 3.94 MIL/MM3 Hemoglobin 11.4 GM/DL Hematocrit 34.9 % Mean Corpuscular Volume 88.5 FL Mean Corpuscular Hemoglobin 29.0 PG Mean Corpuscular Hemoglobin Concent 32.8 % Red Cell Distribution Width 18.1 % Platelet Count 176 TH/MM3 Mean Platelet Volume 9.3 FL Neutrophils (%) (Auto) 71.7 % Lymphocytes (%) (Auto) 17.7 % Monocytes (%) (Auto) 9.9 % Eosinophils (%) (Auto) 0.6 % Basophils (%) (Auto) 0.1 % Neutrophils # (Auto) 4.5 TH/MM3 Lymphocytes # (Auto) 1.1 TH/MM3 Monocytes # (Auto) 0.6 TH/MM3 Eosinophils # (Auto) 0.0 TH/MM3 Basophils # (Auto) 0.0 TH/MM3 CBC Comment DIFF FINAL Differential Comment Blood Urea Nitrogen 15 MG/DL Creatinine 0.89 MG/DL Random Glucose 110 MG/DL Total Protein 8.9 GM/DL Albumin 3.4 GM/DL Calcium Level 9.3 MG/DL Alkaline Phosphatase 85 U/L Aspartate Amino Transf (AST/SGOT) 29 U/L Alanine Aminotransferase (ALT/SGPT) 52 U/L Total Bilirubin 0.5 MG/DL Sodium Level 139 MEQ/L Potassium Level 4.1 MEQ/L Chloride Level 103 MEQ/L Carbon Dioxide Level 27.1 MEQ/L Anion Gap 9 MEQ/L Estimat Glomerular Filtration Rate 69 ML/MIN CT the head reveals interval resolution of the previously noted small right sided subdural hematomas. Extensive encephalomalacia involving the left frontal , parietal, and temporal lobes. No acute infarct, acute hemorrhage, midline shift, or extra-axial bleed. Differential Diagnosis Differential diagnosis includes subdural hemorrhage, intracranial hemorrhage, subarachnoid hemorrhage, tension headache, migraine, vasculitis. Narrative Course IV was established, labs are drawn and sent, and the patient was placed on cardiac telemetry monitoring and continuous pulse oximetry monitoring. CT of the brain was obtained. The patient was a administered morphine, Compazine, Benadryl, and IV fluids. Labs are unremarkable. CT the brain reveals interval resolution of the previous subdural hematomas, no acute findings. The patient was reevaluated at 6:30 PM, her headache went from a 7/10-3/10. Therefore, she was administered another dose of morphine. There is no evidence of subdural hemorrhage, acute infarct, or acute hemorrhage. The patient is advised to follow-up with her neurologist and neurosurgeon as previously directed. She is also advised to follow-up with her shank paperer as previously scheduled. She will be provided a copy of her CT results and report at discharge. She is advised to return if symptoms worsen or progress. Diagnosis Primary Impression: Cephalgia Qualified Codes: R51 - Headache Patient Instructions: Narcotic given in the ED, General Instructions Additional Instructions: Please provide the patient and her family a copy of her labs and CT results at discharge. Follow-up with your neurologist, neurosurgeon, and shank paperer as scheduled. Return if symptoms worsen or progress. Disposition: 01 DISCHARGE HOME Condition: Stable Jesse Ramos MD Nov 06, 2016 17:36
[2016-11-06] MEDS ORDERED: LISI2.5T3 PO (18:09)
[2016-11-06] MEDS ORDERED: OXYC-395 PO (18:09)
[2016-11-06] MEDS ORDERED: ATOR20TA15 PO (18:09)
[2016-11-06 18:10] LABS: AUTOMATED NEUTROPHIL # 4.5 TH/MM3 (1.8-7.7); BASOPHIL % 0.1 % (0.0-2.0); EOSINOPHIL % 0.6 % (0.0-4.0); HEMATOCRIT 34.9 % (35.0-46.0); HEMO FLAGS DIFF FINAL; LYMPH % 17.7 % (9.0-44.0); LYMPHOCYTE # 1.1 TH/MM3 (1.0-4.8); MEAN CELL VOLUME 88.5 FL (80.0-100.0); MEAN CORPUSCULAR HGB CONC 32.8 % (32.0-36.0); MONO % 9.9 % (0.0-8.0); NEUT % 71.7 % (16.0-70.0); PLATELET COUNT 176 TH/MM3 (150-450); RED BLOOD COUNT 3.94 MIL/MM3 (4.00-5.30); RED CELL DISTRIBUTION WIDTH 18.1 % (11.6-17.2); WHITE BLOOD COUNT 6.3 TH/MM3 (4.0-11.0)
--- NOTE | 2016-11-06 18:20 | RADRPT ---
EXAM DATE/TIME: 11/06/2016 17:42 [facility] COMPARISON: CT BRAIN W/O CONTRAST, October 09, 2016, 22:32. CT BRAIN W/O CONTRAST, October 13, 2016, 18:40. INDICATIONS : Headache, history Subdural hematoma. RADIATION DOSE: 33.52 CTDIvol (mGy) MEDICAL HISTORY : Cerebrovascular disease. Lupus. CVA x 3 SURGICAL HISTORY : Thyroidectomy. Liver transplant ENCOUNTER: Initial ACUITY: 1 day PAIN SCALE: 6/10 LOCATION: Cranial TECHNIQUE: Multiple contiguous axial images were obtained of the head. Using automated exposure control and adj ustment of the mA and/or kV according to patient size, radiation dose was kept as low as reasonably a chievable to obtain optimal diagnostic quality images. DICOM format image data is available electro nically for review and comparison. FINDINGS: There has been interval resolution of the small right-sided subdural hematomas. No acute extra-axial bleed is identified on today's examination. Extensive areas of encephalomalacia are aga in noted within the left frontal, parietal and temporal lobes. The ventricles, sulci and cisterns are stable . There is no midline shift. No acute intra-axial bleed is noted. CONCLUSION: 1. Interval resolution of the previously noted small right-sided subdural hematomas. 2. Extensive encephalomalacia involving the left frontal, parietal and temporal lobes. 3. No acute infarct, acute hemorrhage, midline shift or extra-axial bleed. Иван Selby MD on November 06, 2016 at 17:54 Board Certified Radiologist. This report was verified electronically.
[2016-11-06 18:21] LABS: ALT (GPT) 52 U/L (10-53); ANION GAP 9 MEQ/L (5-15); AST (GOT) 29 U/L (15-37); BICARBONATE 27.1 MEQ/L (21.0-32.0); BLOOD UREA NITROGEN 15 MG/DL (7-18); CHLORIDE 103 MEQ/L (98-107); GLOMERULAR FILTRATION RATE 69 ML/MIN (>89); POTASSIUM 4.1 MEQ/L (3.5-5.1); SODIUM (NA) 139 MEQ/L (136-145)
[2016-11-06 18:23] LABS: ALKALINE PHOSPHATASE 85 U/L (45-117); TOTAL BILIRUBIN ADULT 0.5 MG/DL (0.2-1.0)
[2016-11-06 18:42] LABS: APTT (PATIENT) 23.8 SEC (24.3-30.1); PROTHROMBIN TIME - PATIENT 11.2 SEC (9.8-11.6)
== END 2016-11-06 18:59 | disposition home or self-care (01) ==
LOC: NEPE 17:00
DX: R51 Headache (principal); I10 Essential (primary) hypertension; M32.9 Systemic lupus erythematosus, unspecified; E78.00 Pure hypercholesterolemia, unspecified; Z79.01 Long term (current) use of anticoagulants
CPT/HCPCS: 70450; 80053; 85025; 85610; 85730; 96374; 96375; 96376; 99285; J0780; J1200; J2270; J7030

== ENCOUNTER 2016-11-16 13:52 | Emergency (ER) | payer OTHER ==
[~2016-11-16] VITALS: Ht 170.2 cm; Wt 90.0 kg
[~2016-11-16 13:52] MED LIST changes: -ASPI81TA11 PO; +ATOR20TA15 PO; -COMMODE 3-IN-11 MIS; -COUM5TAB PO; -CYCL1TAB29 PO; -ENOX100I SQ; -ENOX100P SQ; -LIPI80TA PO; -LISI10TA3 PO; +LISI2.5T3 PO; -NEUR300C PO; -OXYC-392 PO; +OXYC-395 PO; -QUAD CANE/SMALL1 MI1; -SENN1TAB PO; -TACR1 PO; -WALKER/FOLDING1 MIS; -WARF4TAB51 PO; -WHEEMIS3
[2016-11-16 13:54] VITALS: BP 110/69; PULSE 86; RESP 24; TEMP 98.8; O2SAT 98
--- NOTE | 2016-11-16 14:01 | PD ---
HPI Chief Complaint: Headache Time Seen by Provider: 14:01 Travel History International Travel<30 days: No Contact w/Intl Traveler<30days: No Traveled to known affect area: No History of Present Illness HPI The patient is a 41-year-old female who presents to the emergency department for headache. Patient states she's had worsening headache for the past week and she was recently seen on 11/06/2016 with full workup including CT at that time. Currently her pain is 10 over 10 with decreased appetite and nausea but no vomiting. She denies any new neurological symptoms. The patient has history of rheumatoid arthritis and lupus with several previous CVA that was initially treated with aspirin, then Eliquis, and then Coumadin. Unfortunately the patient suffered from a subdural hemorrhage with subsequent shift and was hospitalized in September and October. The patient was recently discharged home on October 14, was with her and started outpatient physical therapy last week. The patient's neurologist is Dr. Gray, primary physician is Dr. Morrison, neurosurgeon is Dr. Rhoades, and she has an outpatient appointment with a new cushion cover inspector, Dr. Sims. The patient is currently on oxycodone, lisinopril, and atorvastatin. 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 The patient denies any acute focal changes, does have a history of right sided deficits with right sided facial droop, hemiparesis of the right arm, and minimal movement of the right lower extremity. The patient is able to help assist with immobilization shift from a chair to wheelchair, but is not able to ambulate. Patient is currently off all anticoagulants. Her only allergy is to sulfa meds. PFSH Past Medical History Hx Anticoagulant Therapy: Yes (WARFARIN) Anemia: Yes Arthritis: No Asthma: No Autoimmune Disease: Yes (LUPUS) Anxiety: Yes Depression: No Cancer: No Cardiovascular Problems: Yes High Cholesterol: Yes Chemotherapy: No Chest Pain: No Congestive Heart Failure: No COPD: No Cerebrovascular Accident: Yes Diabetes: No Diminished Hearing: No Endocrine: Yes (THYROIDECTOMY) GERD: No Genitourinary: No Headaches: Yes Hiatal Hernia: No Hypertension: Yes Immune Disorder: No Kidney Stones: Yes Musculoskeletal: Yes (right side flacid) Neurologic: Yes Psychiatric: No Reproductive: No Respiratory: No Migraines: No Radiation Therapy: No Renal Failure: Yes Seizures: No Sickle Cell Disease: No Sleep Apnea: No Thyroid Disease: Yes Ulcer: No ?: Not LMP: 11/11/16 Tubal Ligation: Yes Past Surgical History Abdominal Surgery: Yes Appendectomy: Yes Cardiac Surgery: Yes Ear Surgery: No Endocrine Surgery: Yes Eye Surgery: No Genitourinary Surgery: No Gynecologic Surgery: No Oral Surgery: Yes Pacemaker: No Thoracic Surgery: No Other Surgery: Yes (Thyroidectomy and Liver Transplant) Social History Alcohol Use: No Tobacco Use: No Substance Use: No Allergies-Medications (Allergen,Severity, Reaction): Coded Allergies: Sulfa (Sulfonamide Antibiotics) (Unverified Adverse Reaction, Mild, NAUSEA , 11/16/16) Reported Meds & Prescriptions Reported Meds & Active Scripts Active Xanax (Alprazolam) 0.5 Mg Tab 0.5 Mg PO TID PRN Ferosul (Ferrous Sulfate) 325 Mg Tablet 325 Mg PO BID@,17 Prograf (Tacrolimus) 5 Mg Cap 5 Mg PO BID Levothyroxine (Levothyroxine Sodium) 100 Mcg Tab 100 Mcg PO DAILY Prozac (Fluoxetine HCl) 10 Mg Cap 10 Mg PO DAILY Reported Oxycodone (Oxycodone HCl) 10 Mg Tab 10 Mg PO TID PRN Atorvastatin (Atorvastatin Calcium) 20 Mg Tab 20 Mg PO HS Lisinopril 2.5 Mg Tab 2.5 Mg PO DAILY Magnesium Oxide 400 Mg Tab 400 Mg PO DAILY @ 1800 Review of Systems Except as stated in HPI: all other systems reviewed are Neg General / Constitutional: No: Fever Eyes: No: Diploplia, Blurred Vision, Photophobia, Drainage, Redness, Foreign Body Sensation, Pain, Blind Spots, Visual changes, Blindness HENT: Positive: Headaches, No: Vertigo, Lightheadedness, Sore Throat, Rhinitis , Rhinorrhea, Congestion, Nosebleed, Neck Stiffness, Neck Pain, Dental Difficulties, Earache Cardiovascular: No: Chest Pain or Discomfort Respiratory: No: Cough, Shortness of Breath, Wheezing Gastrointestinal: No: Abdominal Pain Genitourinary: No: Dysuria Musculoskeletal: No: Pain Skin: No Rash Neurologic: Positive: Focal Abnormalities (old but not acute.), Coordination Problem (old not acute.), Headache, No: Weakness Psychiatric: No: Depression Endocrine: No: Polydipsia Hematologic/Lymphatic: No: Easy Bruising Physical Exam Narrative GENERAL: Patient appears in mild to moderate distress. She has obvious grimace. SKIN: Warm and dry. Normal color. Normal turgor. No signs of trauma. HEAD: Atraumatic. Normocephalic. EYES: Pupils equal and round. No scleral icterus. No injection or drainage. Patient denies new visual changes with ocular motion testing. ENT: No nasal bleeding or discharge. Mucous membranes pink and moist. Pharynx is clear. Airway is patent. Patient is noted to have a mild right-sided facial droop. This is from previous CVA. NECK: Trachea midline. Supple nontender. CARDIOVASCULAR: Regular rate and rhythm. RESPIRATORY: No accessory muscle use. Clear to auscultation. Breath sounds equal bilaterally. GASTROINTESTINAL: Abdomen soft, non-tender, nondistended. Hepatic and splenic margins not palpable. MUSCULOSKELETAL: Extremities without clubbing, cyanosis, or edema. No obvious deformities. NEUROLOGICAL: Awake and alert. No obvious cranial nerve deficits other than slight right-sided facial droop. Motor grossly within normal limits on the left. Patient has complete loss of use of right arm which is chronic, as well as decrease right leg strength with inability to stand. PSYCHIATRIC: Appropriate mood and affect; insight and judgment normal. Data Data Last Documented VS Vital Signs Date Time Temp Pulse Resp B/P (MAP) Pulse Ox O2 Delivery O2 Flow Rate FiO2 11/16/16 19:35 76 19 129/63 (85) 100 Room Air 11/16/16 13:54 98.8 Orders Orders Complete Blood Count With Diff (11/16/16 14:07) Comprehensive Metabolic Panel (11/16/16 14:07) W[place]gren Sedimentation Rate (11/16/16 14:07) C-Reactive Protein (Crp) (11/16/16 14:07) Prothrombin Time / Inr (Pt) (11/16/16 14:07) Act Partial Throm Time (Ptt) (11/16/16 14:07) Ecg Monitoring (11/16/16 14:07) Iv Access Insert/Monitor (11/16/16 14:07) Oximetry (11/16/16 14:07) Sodium Chloride 0.9% Flush (Ns Flush) (11/16/16 14:15) Prochlorperazine Inj (Compazine Inj) (11/16/16 14:15) Diphenhydramine Inj (Benadryl Inj) (11/16/16 14:15) Morphine Inj (Morphine Inj) (11/16/16 14:15) Ammonia (11/16/16 14:13) Mri Brain W&W/O Contrast (11/16/16 ) Mrv Brain W/Wo Contrast (11/16/16 ) Hydromorphone Pf Inj (Dilaudid Pf Inj) (11/16/16 15:45) Labs Laboratory Tests Test 11/16/16 14:18 White Blood Count 4.1 TH/MM3 Red Blood Count 3.72 MIL/MM3 Hemoglobin 10.6 GM/DL Hematocrit 32.4 % Mean Corpuscular Volume 87.1 FL Mean Corpuscular Hemoglobin 28.6 PG Mean Corpuscular Hemoglobin Concent 32.8 % Red Cell Distribution Width 17.0 % Platelet Count 188 TH/MM3 Mean Platelet Volume 8.7 FL Neutrophils (%) (Auto) 59.3 % Lymphocytes (%) (Auto) 27.2 % Monocytes (%) (Auto) 12.8 % Eosinophils (%) (Auto) 0.6 % Basophils (%) (Auto) 0.1 % Neutrophils # (Auto) 2.4 TH/MM3 Lymphocytes # (Auto) 1.1 TH/MM3 Monocytes # (Auto) 0.5 TH/MM3 Eosinophils # (Auto) 0.0 TH/MM3 Basophils # (Auto) 0.0 TH/MM3 CBC Comment DIFF FINAL Differential Comment Erythrocyte Sedimentation Rate 50 mm/hr Prothrombin Time 11.2 SEC Prothromb Time International Ratio 1.0 RATIO Activated Partial Thromboplast Time 22.9 SEC Blood Urea Nitrogen 14 MG/DL Creatinine 0.99 MG/DL Random Glucose 105 MG/DL Total Protein 8.5 GM/DL Albumin 3.3 GM/DL Calcium Level 9.4 MG/DL Alkaline Phosphatase 71 U/L Aspartate Amino Transf (AST/SGOT) 43 U/L Alanine Aminotransferase (ALT/SGPT) 71 U/L Total Bilirubin 0.4 MG/DL Sodium Level 137 MEQ/L Potassium Level 4.3 MEQ/L Chloride Level 104 MEQ/L Carbon Dioxide Level 26.8 MEQ/L Anion Gap 6 MEQ/L Estimat Glomerular Filtration Rate 61 ML/MIN Ammonia 33 MCMOL/L C-Reactive Protein 0.38 MG/DL MDM Medical Decision Making Medical Screen Exam Complete: Yes Emergency Medical Condition: Yes Medical Record Reviewed: Yes Differential Diagnosis Headache. Migraine. History CVA. Nausea. Narrative Course Patient appears medically stable but in pain at time of exam. Labs ordered including CBC, CMP, C-reactive protein, ESR, PT PTT and INR. CT of the brain without contrast is ordered. IV access is obtained patient is given 25 mg Benadryl IV, 5 mg morphine IV, and 10 mg, seen IV. CBC shows no significant findings except for hemoglobin of 10.6 and a hematocrit of 32.4. ESR is 50. CMP shows normal electrolytes, normal BUN/creatinine, AST and ALT slightly elevated at 43 and 71 respectively. Ammonia level is 33. CRP is 0.38, albumin 3.3, total protein is 8.5. Coagulation studies are normal. Patient was reassessed after the above IV medication and found to have no improvement in her headache. She was given an additional 1 mg of hydromorphone IV. MRI and MRV are ordered. Both of these come back showing no acute process per radiologist. Patient discussed with Dr. Garcia recommends patient be discharged home and continue on her oxycodone as previously prescribed. Patient will also take Phenergan 25 mg up to every 6 hours when necessary #16 dispensed. Patient to follow up with her neurologist and/or primary care physician as discussed with the family. Patient can return to emergency Department with worsening symptoms if necessary. Diagnosis Primary Impression: Headache Qualified Codes: G44.89 - Other headache syndrome Referrals: Neurologist Primary Care Physician Patient Instructions: Acute Headache (ED), General Instructions Additional Instructions: MRI and MRV are ordered. Both of these come back showing no acute process per radiologist. Patient discussed with Dr. Garcia recommends patient be discharged home and continue on her oxycodone as previously prescribed. Patient will also take Phenergan 25 mg up to every 6 hours when necessary #16 dispensed. Patient to follow up with her neurologist and/or primary care physician as discussed with the family. Patient can return to emergency Department with worsening symptoms if necessary. Med/Other Pt SpecificInfo: Prescription(s) given Scripts Promethazine (Phenergan) 25 Mg Tablet 25 MG PO Q6H Y for NAUSEA OR VOMITING for 60 Days, TAB 0 Refills Prov: Ja Garcia MD 11/16/16 Disposition: 01 DISCHARGE HOME Condition: Stable Michele Epperson Nov 16, 2016 14:01
[2016-11-16] MEDS ORDERED: PROCHLORPERAZINE INJ 10 MG/2 ML VIAL IVP ONE (14:15)
[2016-11-16] MEDS ORDERED: SODIUM CHLORIDE 0.9% FLUSH 10 ML FLUSH IVF PRN (14:15)
[2016-11-16] MEDS ORDERED: diphenhydrAMINE HCL 50 MG/ML VIAL IVP ONE (14:15)
[2016-11-16] MEDS ORDERED: MORPHINE SULFATE 8 MG/ML INJ IV PUSH ONE (14:15)
[2016-11-16 14:24] VITALS: O2SAT 97
[2016-11-16 14:47] LABS: AUTOMATED NEUTROPHIL # 2.4 TH/MM3 (1.8-7.7); BASOPHIL % 0.1 % (0.0-2.0); EOSINOPHIL % 0.6 % (0.0-4.0); HEMATOCRIT 32.4 % (35.0-46.0); HEMO FLAGS DIFF FINAL; LYMPH % 27.2 % (9.0-44.0); LYMPHOCYTE # 1.1 TH/MM3 (1.0-4.8); MEAN CELL VOLUME 87.1 FL (80.0-100.0); MEAN CORPUSCULAR HEMOGLOBIN 28.6 PG (27.0-34.0); MEAN CORPUSCULAR HGB CONC 32.8 % (32.0-36.0); MONO % 12.8 % (0.0-8.0); NEUT % 59.3 % (16.0-70.0); PLATELET COUNT 188 TH/MM3 (150-450); RED BLOOD COUNT 3.72 MIL/MM3 (4.00-5.30); WHITE BLOOD COUNT 4.1 TH/MM3 (4.0-11.0)
[2016-11-16 15:09] LABS: APTT (PATIENT) 22.9 SEC (24.3-30.1); PROTHROMBIN TIME - PATIENT 11.2 SEC (9.8-11.6)
[2016-11-16 15:20] LABS: ALKALINE PHOSPHATASE 71 U/L (45-117); TOTAL BILIRUBIN ADULT 0.4 MG/DL (0.2-1.0)
[2016-11-16 15:21] LABS: ALT (GPT) 71 U/L (10-53); ANION GAP 6 MEQ/L (5-15); AST (GOT) 43 U/L (15-37); BICARBONATE 26.8 MEQ/L (21.0-32.0); BLOOD UREA NITROGEN 14 MG/DL (7-18); CHLORIDE 104 MEQ/L (98-107); GLOMERULAR FILTRATION RATE 61 ML/MIN (>89); SODIUM (NA) 137 MEQ/L (136-145)
[2016-11-16 15:22] LABS: POTASSIUM 4.3 MEQ/L (3.5-5.1)
[2016-11-16] MEDS ORDERED: HYDROmorphone HCL PF 1 MG/ML VIAL IV PUSH ONE (15:45)
[2016-11-16 16:00] VITALS: BP 113/63; PULSE 68; RESP 16; O2SAT 97
[2016-11-16] MEDS ORDERED: GADODIAMIDE PF 287 MG/ML 20 ML VIAL (for RAD MRI) IVCONTRAST ONE (17:30)
--- NOTE | 2016-11-16 18:15 | RADRPT ---
EXAM DATE/TIME: 11/16/2016 17:20 COMPARISON: MRI BRAIN W & W/O CONTRAST, November 16, 2016, 17:20. INDICATIONS : Headaches CONTRAST: 20 cc Omniscan (gadodiamide) IV MEDICAL HISTORY : Cardiovascular disease. Hypertension. Lupus SURGICAL HISTORY : Appendectomy. ENCOUNTER: Initial ACUITY: 1 day PAIN SCORE: 0/10 LOCATION: cranial FINDINGS: The dural venous sinuses and major deep and superficial venous structures are symmetric and patent th roughout. CONCLUSION: Normal study Shahbaz Talbot MD on November 16, 2016 at 18:11 Board Certified Radiologist. This report was verified electronically.
--- NOTE | 2016-11-16 18:24 | RADRPT ---
EXAM DATE/TIME: 11/16/2016 17:20 [facility] COMPARISON: No previous studies available for comparison. INDICATIONS : Headaches CONTRAST: 20 cc Omniscan (gadodiamide) IV MEDICAL HISTORY : Cardiovascular disease. Hypertension. Lupus SURGICAL HISTORY : Appendectomy. ENCOUNTER: Initial ACUITY: 1 day PAIN SCORE: 0/10 LOCATION: cranial TECHNIQUE: Multiplanar, multisequence MRI of the brain was performed both prior to and following the administrat ion of paramagnetic contrast. FINDINGS: MRI confirms evolving subacute infarcts in the left frontal lobe, parietal region and left occipital lobe. No new mass effect compared with recent CT. There also old lacunar infarcts in the left periven tricular region. No acute infarct on the right. No significant mass effect or shift. No hydrocephalus . There is some increased T1 signal and areas of infarction characteristic of some petechial hemorrha ge. Somewhat gyriform enhancement is also noted was contrast which can be seen with infarction. CONCLUSION: 1. Evolving infarcts in the left frontal, parietal and temporal occipital regions with frontal infarc t measuring up to 4.3 cm in diameter and occipitotemporal infarct measuring up to 6.3 cm in maximal d iameter. Infarcts associated with some petechial hemorrhage and enhancement post contrast. Also old l acunar infarcts on the left. No acute infarct on the right. No significant mass effect. Sami Noguera MD on November 16, 2016 at 18:16 Board Certified Radiologist. This report was verified electronically.
[2016-11-16 18:28] VITALS: BP 119/72; PULSE 67; RESP 18; O2SAT 94
[2016-11-16 19:35] VITALS: BP 129/63; PULSE 76; RESP 19; O2SAT 100
[2016-11-16] MEDS ORDERED: PROM25TA10 PO (19:39)
[2016-11-16] MEDS ORDERED: PROMETHAZINE HCL 25 MG TAB PO ONE (20:00)
--- NOTE | 2016-11-22 10:39 | RADRPT ---
EXAM DATE/TIME: 11/16/2016 15:02 [facility] COMPARISON: CT BRAIN W/O CONTRAST, November 06, 2016, 17:42. INDICATIONS : Headache for 1 week RADIATION DOSE: 31.48 CTDIvol (mGy) MEDICAL HISTORY : Cardiovascular disease. Hypertension. Lupus. SURGICAL HISTORY : Appendectomy. ENCOUNTER: Initial ACUITY: 1 week PAIN SCALE: 7/10 LOCATION: cranial TECHNIQUE: Multiple contiguous axial images were obtained of the head. Using automated exposure control and adj ustment of the mA and/or kV according to patient size, radiation dose was kept as low as reasonably a chievable to obtain optimal diagnostic quality images. DICOM format image data is available electro nically for review and comparison. FINDINGS: CEREBRUM: Encephalomalacia in the high convexity left frontal, mid convexity parietal and mid and lower convexi ty parietal-occipital region is similar in distribution when compared to prior CT 11/06/16. There is good moctezuma-white matter differential amputation in the right supratentorial brain. No evidence of mid line shift. The ventricles are symmetric in size. No intra-axial or extra-axial blood. POSTERIOR FOSSA: The cerebellum and brainstem are intact. The 4th ventricle is midline. The cerebellopontine angle i s unremarkable. EXTRACRANIAL: The visualized portion of the orbits is intact. SKULL: The calvaria is intact. No evidence of skull fracture. CONCLUSION: No acute findings. Left frontal, parietal, and occipital encephalomalacia is similar to prior CT. Janak Cabezas MD on November 16, 2016 at 16:16 Board Certified Radiologist. This report was verified electronically.
== END 2016-11-16 20:15 | disposition home or self-care (01) ==
LOC: NEPC 13:52
DX: R51 Headache (principal); I69.992 Facial weakness following unspecified cerebrovascular disease; I69.951 Hemiplegia and hemiparesis following unspecified cerebrovascular disease affecting right dominant side; M06.9 Rheumatoid arthritis, unspecified; D64.9 Anemia, unspecified; M32.9 Systemic lupus erythematosus, unspecified; F41.9 Anxiety disorder, unspecified; I10 Essential (primary) hypertension; Z87.442 Personal history of urinary calculi
CPT/HCPCS: 70450; 70546; 70553; 80053; 82140; 85025; 85610; 85652; 85730; 86140; 96374; 96375; 99285; A9579; J0780; J1170; J1200; J2270; Q0169